=== PATIENT | female | born 1945 | race Hispanic/Latino ===

== ENCOUNTER 2017-08-10 19:48 | Emergency (ER) | payer MEDICARE ==
[~2017-08-10 19:48] MED LIST: ASPI-1181 PO; CLOP75TA32 PO; FLUT16H EN; LOSA100T29 PO; METO50TA18 PO; PANT40TA25 PO; ROSU20TA38 PO; SENN1TAB72 PO; TRAM50TA4 PO
[2017-08-10] MEDS ORDERED: FENTANYL CITRATE PF 50 MCG/1 ML 2ML VIAL ONE (20:18)
[2017-08-10 20:24] LABS: BASOPHILS % (AUTO) 0.7 % (0.0-5.0); EOSINOPHILS % (AUTO) 1.1 % (0.0-8.0); HEMATOCRIT 39.8 % (36-48); LYMPHOCYTES % (AUTO) 35.5 % (21.0-51.0); MEAN CORPUSCULAR HEMOGLOBIN 30.5 pg (27.0-33.0); MEAN CORPUSCULAR HGB CONC 34.2 g/dL (32.0-36.0); MEAN CORPUSCULAR VOLUME 89.3 fL (79-99); MONOCYTES % (AUTO) 6.4 % (3.0-13.0); NEUTROPHILS % (AUTO) 56.3 % (40.0-77.0); PLATELET COUNT (AUTO) 407 K/uL (130-400); RED BLOOD CELL COUNT(AUTO) 4.46 MIL/uL (4.00-5.50); RED CELL DISTRIBUTION WIDTH 13.3 % (11.0-15.5); WHITE BLOOD COUNT (AUTO) 11.4 K/uL (4.8-10.8)
[2017-08-10 20:35] LABS: CREATININE 1.3 mg/dL (0.5-1.5); INR 0.91 (0.85-1.15); PARTIAL THROMBOPLASTIN TIME 27.1 SEC (26.3-35.5); PROTHROMBIN TIME 9.6 SEC (9.6-11.6)
[2017-08-10] MEDS ORDERED: POTASSIUM BICARB/CIT AC 25 MEQ TABLET.EFF ONE (22:32)
[2017-12-14] MEDS ORDERED: ROSU20TA38 PO (16:41)
[2017-12-14] MEDS ORDERED: GABA-531 PO (16:41)
[2017-12-14] MEDS ORDERED: CARV6.25 PO (16:41)
[2017-12-14] MEDS ORDERED: ESCI5TAB10 PO (16:41)
[2017-12-14] MEDS ORDERED: ISOS30TA6 PO (16:41)
[2017-12-14] MEDS ORDERED: CILO100T PO (16:41)
[2017-12-14] MEDS ORDERED: ACET-66 PO (16:52)
[2017-12-14] MEDS ORDERED: CLOP75TA32 PO (16:52)
[2017-12-14] MEDS ORDERED: FURO20TA4 PO (16:52)
[2017-12-14] MEDS ORDERED: NITR0.4T50 SL (16:52)
[2018-01-22] MEDS ORDERED: FLUT16H NASAL (10:28)
[2018-01-22] MEDS ORDERED: ACET650T24 PO (10:28)
== END 2017-08-10 22:50 | disposition home or self-care (01) ==
LOC: EDH 19:48
DX: E87.6 Hypokalemia (principal); M79.605 Pain in left leg; J45.909 Unspecified asthma, uncomplicated; E78.5 Hyperlipidemia, unspecified; I10 Essential (primary) hypertension; I25.2 Old myocardial infarction; Z86.73 Personal history of transient ischemic attack (TIA), and cerebral infarction without residual deficits; Z88.6 Allergy status to analgesic agent; Z88.8 Allergy status to other drugs, medicaments and biological substances
CPT/HCPCS: 36415; 80048; 85025; 85610; 85730; 93005; 93926; 93971; 96374; 99285; J3010

== ENCOUNTER → 2017-11-10 | Outpatient (CLI) | payer MEDICARE ==
[~2017-11-10] MED LIST changes: +ACET-66 PO; +ACET650T24 PO; +CARV6.25 PO; +CILO100T PO; +ESCI5TAB10 PO; +FLUT16H NASAL; +FURO20TA4 PO; +GABA-531 PO; +IOPAMIDOL-370 75 ML VIAL IV ONE; +ISOS30TA6 PO; +ISOVUE-370 50ML VIAL IV ONE; +NITR0.4T50 SL
== END ==
LOC: RAH 08:24
PROVIDERS: ATTEND Internal Medicine Cardiovascular Disease
DX: I70.1 Atherosclerosis of renal artery (principal); I77.1 Stricture of artery; I70.0 Atherosclerosis of aorta; N20.0 Calculus of kidney; N28.1 Cyst of kidney, acquired; K44.9 Diaphragmatic hernia without obstruction or gangrene; N32.89 Other specified disorders of bladder; K57.30 Diverticulosis of large intestine without perforation or abscess without bleeding; I77.4 Celiac artery compression syndrome; I73.9 Peripheral vascular disease, unspecified
CPT/HCPCS: 75635; Q9967 ×2

== ENCOUNTER → 2018-01-22 | Outpatient (CLI) | payer MEDICARE ==
[~2018-01-22] VITALS: Ht 149.9 cm; Wt 74.7 kg
[~2018-01-22] MED LIST changes: -ASPI-1181 PO; -FLUT16H EN; -IOPAMIDOL-370 75 ML VIAL IV ONE; -ISOVUE-370 50ML VIAL IV ONE; -METO50TA18 PO; +ROSU20TA30 PO; -ROSU20TA38 PO; -SENN1TAB72 PO; -TRAM50TA4 PO
[2018-01-22 10:42] LABS: APPEARANCE,URINE Clear (CLEAR); BILIRUBIN,URINE Negative (NEGATIVE); COLOR,URINE Yellow (YELLOW); GLUCOSE, URINE (UA) Negative (NEGATIVE); KETONES,URINE Negative (NEGATIVE); LEUKOCYTE ESTERASE ,URINE Negative (NEGATIVE); NITRATE,URINE Negative (NEGATIVE); OCCULT BLOOD,URINE Negative (NEGATIVE); PROTEIN,URINE Negative (NEGATIVE); UROBILINOGEN,URINE 0.2 mg/dL (0.2-1.0)
[2018-01-22 10:42] LABS: BASOPHILS % (AUTO) 0.9 % (0.0-5.0); EOSINOPHILS % (AUTO) 4.4 % (0.0-8.0); HEMATOCRIT 38.7 % (36-48); LYMPHOCYTES % (AUTO) 37.4 % (21.0-51.0); MEAN CORPUSCULAR HEMOGLOBIN 31.9 pg (27.0-33.0); MEAN CORPUSCULAR HGB CONC 34.2 g/dL (32.0-36.0); MEAN CORPUSCULAR VOLUME 93.2 fL (79-99); MONOCYTES % (AUTO) 6.6 % (3.0-13.0); NEUTROPHILS % (AUTO) 50.7 % (40.0-77.0); PLATELET COUNT (AUTO) 332 K/uL (130-400); RED BLOOD CELL COUNT(AUTO) 4.15 MIL/uL (4.00-5.50); WHITE BLOOD COUNT (AUTO) 6.9 K/uL (4.8-10.8)
[2018-01-22 10:47] VITALS: BP 178/80
[2018-01-22 10:51] LABS: CREATININE 0.9 mg/dL (0.5-1.5); POTASSIUM 4.1 mmol/L (3.5-5.1)
[2018-01-22 10:54] LABS: INR 0.95 (0.85-1.15); PARTIAL THROMBOPLASTIN TIME 24.5 SEC (26.3-35.5)
[2018-01-25 06:05] VITALS: BP 161/59
== END | disposition home or self-care (01) ==
LOC: EDSTATUS 09:00 → DAH 10:00
PROVIDERS: ATTEND Internal Medicine Cardiovascular Disease
DX: Z01.818 Encounter for other preprocedural examination (principal); I73.9 Peripheral vascular disease, unspecified; E78.5 Hyperlipidemia, unspecified; K21.9 Gastro-esophageal reflux disease without esophagitis
CPT/HCPCS: 36415; 71045; 80048; 81003; 82948; 85025; 85610; 85730; 93005; A4606

== ENCOUNTER 2018-07-04 13:47 | Observation (INO) | payer MEDICARE ==
[~2018-07-04] VITALS: Ht 180.3 cm; Wt 74.4 kg
[~2018-07-04 13:47] MED LIST changes: -ACET-66 PO; +LOSA100T20 PO; -LOSA100T29 PO; -NITR0.4T50 SL; +[UNRECOGNIZED DRUG - OTHER] PO
[2018-07-04 14:17] LABS: BASOPHILS % (AUTO) 0.9 % (0.0-5.0); EOSINOPHILS % (AUTO) 0.8 % (0.0-8.0); HEMATOCRIT 42.1 % (36-48); LYMPHOCYTES % (AUTO) 45.7 % (21.0-51.0); MEAN CORPUSCULAR HGB CONC 34.4 g/dL (32.0-36.0); MEAN CORPUSCULAR VOLUME 93.1 fL (79-99); NEUTROPHILS % (AUTO) 46.6 % (40.0-77.0); NUCLEATED RED BLOOD CELLS 0.1 % (0.0-0.19); PLATELET COUNT (AUTO) 354 K/uL (130-400); RED BLOOD CELL COUNT(AUTO) 4.52 MIL/uL (4.00-5.50); RED CELL DISTRIBUTION WIDTH 14.3 % (11.0-15.5); WHITE BLOOD COUNT (AUTO) 6.8 K/uL (4.8-10.8)
[2018-07-04] MEDS ORDERED: ASPIRIN 325 MG TABLET ONE (14:56)
[2018-07-04] MEDS ORDERED: NITROGLYCERIN 0.4 MG SL TAB SL ONE (14:56)
[2018-07-04 15:03] LABS: INR 0.95 (0.85-1.15); PARTIAL THROMBOPLASTIN TIME 25.2 SEC (26.3-35.5)
[2018-07-04 15:04] LABS: ALBUMIN 3.7 g/dL (3.5-5.0); BILIRUBIN,TOTAL 0.6 mg/dL (0.2-1.0); CREATININE 0.8 mg/dL (0.5-1.5); POTASSIUM 3.2 mmol/L (3.5-5.1); TOTAL PROTEIN, SERUM 7.1 g/dL (6.0-8.3)
[2018-07-04] MEDS ORDERED: HYDRALAZINE HCL 20 MG/ML VIAL IV PRN (16:30)
[2018-07-04] MEDS ORDERED: LIDOCAINE HCL-MPF 1% 2ML VIAL IVP PRN (17:00)
[2018-07-04] MEDS ORDERED: POTASSIUM CHLORIDE 20 MEQ ERTAB PO PRN (17:00)
[2018-07-04] MEDS ORDERED: POTASSIUM CHLORIDE 10% ELIXIR 20 MEQ/15 ML UDCUP PO PRN (17:00)
[2018-07-04] MEDS ORDERED: POTASSIUM CHLORIDE 20MEQ/100ML 100 ML IV PRN (17:00)
[2018-07-04] MEDS ORDERED: IPRATROPIUM/ALBUTEROL SULFATE 3 ML SOLUTION IH PRN (17:15)
[2018-07-04 19:07] VITALS: BP 152/77
[2018-07-04] MEDS: NAPROXEN 250 MG TAB PO SCH ×2 (20:00→21:00)
[2018-07-04] MEDS: CILOSTAZOL 100 MG TAB PO SCH (21:00)
[2018-07-04] MEDS: CARVEDILOL 6.25 MG TABLET PO SCH (21:00)
[2018-07-04] MEDS ORDERED: METOPROLOL TARTRATE 25 MG TAB PO SCH (21:00)
[2018-07-04 23:33] VITALS: BP 151/61
[2018-07-05 03:23] VITALS: BP 125/74
[2018-07-05 04:01] LABS: HEMATOCRIT 37.3 % (36-48); MEAN CORPUSCULAR HEMOGLOBIN 31.5 pg (27.0-33.0); MEAN CORPUSCULAR VOLUME 92.5 fL (79-99); PLATELET COUNT (AUTO) 288 K/uL (130-400); RED BLOOD CELL COUNT(AUTO) 4.03 MIL/uL (4.00-5.50); RED CELL DISTRIBUTION WIDTH 13.9 % (11.0-15.5); WHITE BLOOD COUNT (AUTO) 7.8 K/uL (4.8-10.8)
[2018-07-05] MEDS ORDERED: PANTOPRAZOLE SODIUM 40 MG TABLET.DR PO SCH (07:30)
[2018-07-05 07:43] VITALS: BP 138/73
[2018-07-05] MEDS ORDERED: ASPIRIN 81MG TAB.CHEW PO SCH (09:00)
[2018-07-05] MEDS ORDERED: ENOXAPARIN SODIUM 40 MG/0.4 ML SYRINGE SQ SCH (09:00)
[2018-07-05] MEDS ORDERED: FUROSEMIDE 20 MG TABLET PO SCH (09:00)
[2018-07-05] MEDS ORDERED: ISOSORBIDE MONO 30MG TAB SR PO SCH (09:00)
[2018-07-05] MEDS ORDERED: AMLODIPINE BESYLATE 5 MG TAB PO SCH (09:00)
[2018-07-05] MEDS ORDERED: LOSARTAN 100 MG TABLET PO SCH (09:00)
[2018-07-05] MEDS ORDERED: NITROGLYCERIN 0.2 MG/HR PATCH TD SCH (09:00)
[2018-07-05] MEDS ORDERED: CLOPIDOGREL BISULFATE 75 MG TAB PO SCH (09:00)
[2018-07-05] MEDS: CILOSTAZOL 100 MG TAB PO SCH (09:41)
[2018-07-05 09:42] VITALS: BP 138/73
[2018-07-05] MEDS: CARVEDILOL 6.25 MG TABLET PO SCH (09:42)
[2018-07-05] MEDS ORDERED: AMLO5TAB4 PO (10:29)
== END 2018-07-05 12:40 | disposition home or self-care (01) ==
LOC: EDH 13:47 → EDHIP 16:22 → INTOOBSV 16:22 → 2DH 19:03
PROVIDERS: ADMIT Hospitalist; ATTEND Hospitalist
DX: M94.0 Chondrocostal junction syndrome [Tietze] (principal); E11.51 Type 2 diabetes mellitus with diabetic peripheral angiopathy without gangrene; E87.6 Hypokalemia; E78.5 Hyperlipidemia, unspecified; F41.9 Anxiety disorder, unspecified; H02.60 Xanthelasma of unspecified eye, unspecified eyelid; I11.0 Hypertensive heart disease with heart failure; I50.9 Heart failure, unspecified; I70.212 Atherosclerosis of native arteries of extremities with intermittent claudication, left leg; I25.10 Atherosclerotic heart disease of native coronary artery without angina pectoris; J45.909 Unspecified asthma, uncomplicated; J44.9 Chronic obstructive pulmonary disease, unspecified; Z87.891 Personal history of nicotine dependence; Z95.1 Presence of aortocoronary bypass graft
CPT/HCPCS: 36415 ×2; 71045; 80053; 82550; 84484 ×3; 85025; 85027; 85610; 85730; 93005 ×2; 93925; 94664; 96372; 99284; G0378 ×20; J1650

== ENCOUNTER 2018-09-17 05:50 | Day surgery (SDC) | payer MEDICARE ==
[~2018-09-17] VITALS: Ht 147.3 cm; Wt 75.8 kg
[~2018-09-17 05:50] MED LIST changes: -CLOP75TA32 PO; -GABA-531 PO; +ISOS30TA11 PO; -LOSA100T20 PO; +LOSA100T58 PO; -[UNRECOGNIZED DRUG - OTHER] PO
[2018-09-17] MEDS ORDERED: SODIUM CHLORIDE 0.9% 1000ML 1,000 ML IV ONE (06:03)
[2018-09-17 07:00] VITALS: BP 156/66
[2018-09-17] MEDS ORDERED: BREO (07:18)
[2018-09-17] MEDS ORDERED: PROPOFOL 10 MG/ML 20ML VIAL IV ONE ×2 (07:32)
[2018-09-17 07:45] VITALS: BP 94/49
[2018-09-17 07:50] VITALS: BP 110/54
[2018-09-17 07:55] VITALS: BP 98/59
[2018-09-17 08:00] VITALS: BP 126/60
--- NOTE | 2018-09-17 08:11 | NUR ---
PT TOLERATED PROCEDURE WELL, NO C/O ABDOMINAL PAIN DOES STATE MILD THROAT DISCOMFORT. PT ABLE TO SIT UP AT BEDSIDE AND TOLERATE FLUIDS, ISTRUCTED PT TO DRINK WARM LIQUIDS, AND COUGH DROPS. POST CARE INSTRUCTIONS GIVEN TO PT AND SON, BOTH VERBALIZED UNDERSTANDING. PT PLACED IN A WHEELCHAIR DRIVEN HOME BY SON.
== END 2018-09-17 08:11 | disposition home or self-care (01) ==
LOC: DAH 05:50 → ENDO 05:50
PROVIDERS: ATTEND Internal Medicine
DX: K29.50 Unspecified chronic gastritis without bleeding (principal); K44.9 Diaphragmatic hernia without obstruction or gangrene; K31.89 Other diseases of stomach and duodenum; K56.2 Volvulus; I10 Essential (primary) hypertension; M19.90 Unspecified osteoarthritis, unspecified site; M81.0 Age-related osteoporosis without current pathological fracture; J45.909 Unspecified asthma, uncomplicated; E11.9 Type 2 diabetes mellitus without complications; I25.10 Atherosclerotic heart disease of native coronary artery without angina pectoris; E78.5 Hyperlipidemia, unspecified; Z68.32 Body mass index [BMI] 32.0-32.9, adult; Z95.1 Presence of aortocoronary bypass graft; Z79.84 Long term (current) use of oral hypoglycemic drugs; Z79.899 Other long term (current) drug therapy; Z98.890 Other specified postprocedural states; Z90.710 Acquired absence of both cervix and uterus; Z88.8 Allergy status to other drugs, medicaments and biological substances; Z88.0 Allergy status to penicillin; Z86.73 Personal history of transient ischemic attack (TIA), and cerebral infarction without residual deficits
CPT/HCPCS: 43239; 82948 ×2; 88305; 93005; A4606; J2704 ×2; J7030

== ENCOUNTER → 2018-09-27 | Outpatient (CLI) | payer MEDICARE ==
[~2018-09-27] MED LIST changes: +BREO; +IOHEXOL-350 75 ML VIAL IV ONE
== END | disposition home or self-care (01) ==
LOC: RAH 08:56
PROVIDERS: ATTEND Internal Medicine Cardiovascular Disease
DX: I71.4 Abdominal aortic aneurysm, without rupture (principal); I74.5 Embolism and thrombosis of iliac artery; I25.10 Atherosclerotic heart disease of native coronary artery without angina pectoris; I77.4 Celiac artery compression syndrome; I73.9 Peripheral vascular disease, unspecified; K57.90 Diverticulosis of intestine, part unspecified, without perforation or abscess without bleeding; M47.815 Spondylosis without myelopathy or radiculopathy, thoracolumbar region; I70.90 Unspecified atherosclerosis
CPT/HCPCS: 75635; Q9967

== ENCOUNTER → 2018-10-05 | Outpatient (CLI) | payer MEDICARE ==
[~2018-10-05] MED LIST changes: -IOHEXOL-350 75 ML VIAL IV ONE
--- NOTE | 2018-10-05 11:30 | NUR ---
MBSS COMPLETED. -S/S OF ASPIRATION. RECOMMEND REGULAR, THIN LIQUID DIET; PILLS WHOLE WITH LIQUIDS. PATIENT INFORMATION: Pt IS A 72 Y.O. FEMALE REFERRED FOR AN MBSS SECONDARY TO C/O DIFFICULTY SWALLOWING. Pt AAOX3 AND SERVED THE PRIMARY INFORMANT FOR MEDICAL AND SOCIAL HISTORY. Pt DESCRIBES SWALLOWING DIFFICULTY COUGHING AND BRINING UP MUCUS. Pt HAS A PAST MEDICAL HISTORY SIGNIFICANT FOR HYPERTENSION, DIABETES MELLITUS, DYSLIPIDEMIA, CABGX3 2009, HYSTERECTOMY, CHOLECYSTECTOMY, COPD, ASTHMA, CHF, HYPOKALEMIA, CAD AND EX-SMOKER. MBSS INTERPRETATION: SWALLOW FUNCTION AND EFFICIENCY WITHIN FUNCTIONAL LIMITS. ORAL MOTOR STRENGTH, COORDINATION, AND ROM WITHIN FUNCTIONAL LIMITS. LARYNGEAL ELEVATION/EXCURSION STRONG WITH TIMELY PHARYNGEAL RESPONSE. NO SIGNS OR SYMPTOMS OF ASPIRATION PRESENT DURING MBSS. VOCAL QUALITY CLEAR WITH NO THROAT CLEAR OR COUGH RESPONSE PRESENT. TRIALS: 1. TSP PUREED: GOOD 2. TSP PUREED: GOOD 3. TSP MIXED TEXTURES: GOOD 4. COOKIE: GOOD 5. CUP SIP THIN LIQUIDS: GOOD 6. STRAW SIP THIN LIQUIDS: GOOD RECOMMENDATIONS: 1. REGULAR TEXTURE, THIN LIQUID DIET; PILLS WHOLE WITH LIQUIDS. 2. COMPENSATORY STRATEGIES (PROPHYLAXIS): *SEATED AT 90 DEGREE ANGLE G-CODES SWALLOWING: [id number] Addendum: 10/06/18 at 0851 by KATIE LUIS [facility] Amended: Links added.
== END | disposition home or self-care (01) ==
LOC: RAH 10:25
PROVIDERS: ATTEND Internal Medicine Gastroenterology
DX: R13.10 Dysphagia, unspecified (principal); R63.3 Feeding difficulties; I10 Essential (primary) hypertension; E11.9 Type 2 diabetes mellitus without complications; I25.10 Atherosclerotic heart disease of native coronary artery without angina pectoris; M19.90 Unspecified osteoarthritis, unspecified site; J45.909 Unspecified asthma, uncomplicated
CPT/HCPCS: 74230; 92611

== ENCOUNTER 2018-12-18 09:58 | Emergency (ER) | payer MEDICARE ==
[2018-12-18] MEDS ORDERED: IPRATROPIUM/ALBUTEROL SULFATE 3 ML SOLUTION IH ONE ×2 (10:35→11:25)
[2018-12-18 10:46] LABS: BASOPHILS % (AUTO) 0.8 % (0.0-5.0); EOSINOPHILS % (AUTO) 1.3 % (0.0-8.0); HEMATOCRIT 41.2 % (36-48); LYMPHOCYTES % (AUTO) 31.5 % (21.0-51.0); MEAN CORPUSCULAR HEMOGLOBIN 32.8 pg (27.0-33.0); MEAN CORPUSCULAR HGB CONC 34.6 g/dL (32.0-36.0); MEAN CORPUSCULAR VOLUME 94.7 fL (79-99); MONOCYTES % (AUTO) 11.2 % (3.0-13.0); NEUTROPHILS % (AUTO) 55.2 % (40.0-77.0); PLATELET COUNT (AUTO) 237 K/uL (130-400); RED BLOOD CELL COUNT(AUTO) 4.35 MIL/uL (4.00-5.50); RED CELL DISTRIBUTION WIDTH 14.5 % (11.0-15.5); WHITE BLOOD COUNT (AUTO) 4.4 K/uL (4.8-10.8)
[2018-12-18 10:54] LABS: CREATININE 0.9 mg/dL (0.5-1.5); POTASSIUM 3.3 mmol/L (3.5-5.1)
[2018-12-18 10:59] LABS: ALBUMIN 3.6 g/dL (3.5-5.0); BILIRUBIN,TOTAL 0.4 mg/dL (0.2-1.0)
[2018-12-18 10:59] LABS: RAPID GROUP A STREP NEGATIVE (NEGATIVE)
[2018-12-18 11:07] LABS: INR 0.94 (0.85-1.15); PARTIAL THROMBOPLASTIN TIME 25.5 SEC (26.3-35.5); PROTHROMBIN TIME 9.9 SEC (9.6-11.6)
[2018-12-18] MEDS ORDERED: METHYLPREDNISOLONE SOD SUCC 125MG/2ML VIAL ONE (11:10)
[2018-12-18] MEDS ORDERED: POTASSIUM CHLORIDE 20 MEQ ERTAB PO ONE (11:10)
== END 2018-12-18 11:58 | disposition home or self-care (01) ==
LOC: EDH 09:58
DX: J45.901 Unspecified asthma with (acute) exacerbation (principal); I10 Essential (primary) hypertension; E78.5 Hyperlipidemia, unspecified; I25.810 Atherosclerosis of coronary artery bypass graft(s) without angina pectoris; I25.2 Old myocardial infarction; Z86.73 Personal history of transient ischemic attack (TIA), and cerebral infarction without residual deficits; Z87.891 Personal history of nicotine dependence; Z88.5 Allergy status to narcotic agent; Z88.6 Allergy status to analgesic agent; Z79.899 Other long term (current) drug therapy
CPT/HCPCS: 36415; 71045; 80053; 84484; 85025; 85610; 85730; 87040; 87804 ×2; 87880; 93005; 94640 ×2; 96374; 99285; J2930

== ENCOUNTER 2019-12-04 15:42 | Emergency (ER) | payer MEDICARE ==
[~2019-12-04 15:42] MED LIST changes: -ROSU20TA30 PO; +ROSU20TA31 PO
[2019-12-04 16:24] LABS: BASOPHILS % (AUTO) 0.4 % (0.0-5.0); EOSINOPHILS % (AUTO) 0.7 % (0.0-8.0); LYMPHOCYTES % (AUTO) 31.5 % (21.0-51.0); MEAN CORPUSCULAR HEMOGLOBIN 32.8 pg (27.0-33.0); MEAN CORPUSCULAR HGB CONC 33.7 g/dL (32.0-36.0); MEAN CORPUSCULAR VOLUME 97.4 fL (79-99); MONOCYTES % (AUTO) 7.7 % (3.0-13.0); NEUTROPHILS % (AUTO) 59.5 % (40.0-77.0); PLATELET COUNT (AUTO) 315 K/uL (130-400); RED BLOOD CELL COUNT(AUTO) 4.21 MIL/uL (4.00-5.50); RED CELL DISTRIBUTION WIDTH 13.2 % (11.0-15.5); WHITE BLOOD COUNT (AUTO) 9.6 K/uL (4.8-10.8)
[2019-12-04 16:34] LABS: CREATININE 1.2 mg/dL (0.5-1.5); POTASSIUM 3.7 mmol/L (3.5-5.1)
[2019-12-04 16:38] LABS: ALBUMIN 3.8 g/dL (3.5-5.0); BILIRUBIN,TOTAL 0.4 mg/dL (0.2-1.0)
== END 2019-12-04 18:18 | disposition home or self-care (01) ==
LOC: EDH 15:42
DX: M77.32 Calcaneal spur, left foot (principal); M79.672 Pain in left foot; I10 Essential (primary) hypertension; E78.5 Hyperlipidemia, unspecified; J45.909 Unspecified asthma, uncomplicated; I25.2 Old myocardial infarction; Z72.0 Tobacco use; Z88.6 Allergy status to analgesic agent; Z88.5 Allergy status to narcotic agent; I25.10 Atherosclerotic heart disease of native coronary artery without angina pectoris
CPT/HCPCS: 36415; 71045; 73590; 73630; 80053; 82550; 84484; 85025; 93005; 93971

== ENCOUNTER → 2019-12-23 | Outpatient (CLI) | payer MEDICARE ==
[~2019-12-23] MED LIST changes: +REGADENOSON 0.4 MG/5 ML PF SYG IVP SCH
== END | disposition home or self-care (01) ==
LOC: CANPRECLI → SHCH 08:08
PROVIDERS: ATTEND Internal Medicine Cardiovascular Disease
DX: I25.10 Atherosclerotic heart disease of native coronary artery without angina pectoris (principal)
CPT/HCPCS: 78452; 93017; 96374; A9500 ×2; J2785

== ENCOUNTER 2020-05-08 14:52 | Emergency (ER) | payer MEDICARE ==
[~2020-05-08 14:52] MED LIST changes: -PANT40TA25 PO; +PANT40TA54 PO; -REGADENOSON 0.4 MG/5 ML PF SYG IVP SCH
[2020-05-08 15:31] LABS: BASOPHILS % (AUTO) 0.5 % (0.0-5.0); EOSINOPHILS % (AUTO) 0.9 % (0.0-8.0); HEMATOCRIT 42.2 % (36-48); LYMPHOCYTES % (AUTO) 38.8 % (21.0-51.0); MEAN CORPUSCULAR HEMOGLOBIN 32.3 pg (27.0-33.0); MEAN CORPUSCULAR HGB CONC 34.1 g/dL (32.0-36.0); MEAN CORPUSCULAR VOLUME 94.6 fL (79-99); MONOCYTES % (AUTO) 7.2 % (3.0-13.0); NEUTROPHILS % (AUTO) 52.5 % (40.0-77.0); PLATELET COUNT (AUTO) 301 K/uL (130-400); RED BLOOD CELL COUNT(AUTO) 4.46 MIL/uL (4.00-5.50); RED CELL DISTRIBUTION WIDTH 13.2 % (11.0-15.5); WHITE BLOOD COUNT (AUTO) 7.7 K/uL (4.8-10.8)
[2020-05-08 15:43] LABS: CREATININE 0.8 mg/dL (0.5-1.5); POTASSIUM 3.2 mmol/L (3.5-5.1)
[2020-05-08 15:44] LABS: INR 0.91 (0.85-1.15); PARTIAL THROMBOPLASTIN TIME 24.5 SEC (26.3-35.5); PROTHROMBIN TIME 9.9 SEC (9.6-11.6)
[2020-05-08 15:48] LABS: ALBUMIN 3.8 g/dL (3.5-5.0); BILIRUBIN,TOTAL 0.4 mg/dL (0.2-1.0); TOTAL PROTEIN, SERUM 7.2 g/dL (6.0-8.3)
== END 2020-05-08 19:16 | disposition left against medical advice (07) ==
LOC: EDH 14:52
DX: R07.89 Other chest pain (principal); I16.0 Hypertensive urgency; I10 Essential (primary) hypertension; J45.909 Unspecified asthma, uncomplicated; I25.10 Atherosclerotic heart disease of native coronary artery without angina pectoris; I25.2 Old myocardial infarction; Z88.6 Allergy status to analgesic agent; Z86.73 Personal history of transient ischemic attack (TIA), and cerebral infarction without residual deficits
CPT/HCPCS: 36415; 70450; 71045; 80053; 82550; 83880; 84484; 85025; 85378; 85610; 85730; 93005

== ENCOUNTER 2020-06-27 13:42 | Observation (INO) | payer MEDICARE ==
[~2020-06-27] VITALS: Ht 149.9 cm; Wt 75.7 kg
[2020-06-27 14:25] LABS: BASOPHILS % (AUTO) 0.4 % (0.0-5.0); EOSINOPHILS % (AUTO) 0.7 % (0.0-8.0); HEMATOCRIT 41.3 % (36-48); MEAN CORPUSCULAR HEMOGLOBIN 32.5 pg (27.0-33.0); MEAN CORPUSCULAR HGB CONC 34.1 g/dL (32.0-36.0); MEAN CORPUSCULAR VOLUME 95.2 fL (79-99); MONOCYTES % (AUTO) 6.3 % (3.0-13.0); NEUTROPHILS % (AUTO) 51.3 % (40.0-77.0); PLATELET COUNT (AUTO) 294 K/uL (130-400); RED BLOOD CELL COUNT(AUTO) 4.34 MIL/uL (4.00-5.50); RED CELL DISTRIBUTION WIDTH 12.6 % (11.0-15.5); WHITE BLOOD COUNT (AUTO) 7.5 K/uL (4.8-10.8)
[2020-06-27 14:40] LABS: POTASSIUM 4.3 mmol/L (3.5-5.1)
[2020-06-27 14:42] LABS: ALBUMIN 3.9 g/dL (3.5-5.0); BILIRUBIN,TOTAL 0.4 mg/dL (0.2-1.0); INR 0.92 (0.85-1.15); TOTAL PROTEIN, SERUM 7.4 g/dL (6.0-8.3)
[2020-06-27 14:51] LABS: B-TYPE NATRIURETIC PEPTIDE 30 pg/mL (0-100)
[2020-06-27] MEDS ORDERED: ONDANSETRON HCL 4 MG/2 ML VIAL IVP PRN (15:15)
[2020-06-27] MEDS ORDERED: NITROGLYCERIN 0.4 MG SL TAB SL PRN (15:15)
[2020-06-27] MEDS ORDERED: ACETAMINOPHEN 325 MG TAB PO PRN (18:30)
[2020-06-27] MEDS ORDERED: TEMAZEPAM 15 MG CAPSULE PO PRN (18:45)
[2020-06-27] MEDS: PHARMACY COMMUNICATION MISC SCH (19:00)
[2020-06-27] MEDS ORDERED: IOHEXOL-350 75 ML VIAL IV ONE (19:07)
[2020-06-27] MEDS ORDERED: METOPROLOL TARTRATE 25 MG TAB ONE (20:10)
[2020-06-27] MEDS ORDERED: ATORVASTATIN CALCIUM 20 MG TABLET ONE (20:10)
[2020-06-27] MEDS ORDERED: ATORVASTATIN CALCIUM 20 MG TABLET PO SCH (21:00)
[2020-06-27] MEDS: METOPROLOL TARTRATE 25 MG TAB PO SCH (21:00)
[2020-06-27 22:37] VITALS: BP 139/65
[2020-06-27 23:23] LABS: CREATINE KINASE, TOTAL 30 U/L (21-232); MYOGLOBIN 41 ng/mL (10-92); TROPONIN I < 0.04 ng/mL (0.00-0.06)
[2020-06-28] VITALS: BP 128/69
[2020-06-28] MEDS: PHARMACY COMMUNICATION MISC SCH ×2 (01:00→06:25)
[2020-06-28] MEDS ORDERED: METF-444 PO (01:16)
[2020-06-28] MEDS ORDERED: OLME20TA22 PO (01:16)
[2020-06-28] MEDS ORDERED: CARV12.511 PO (01:16)
[2020-06-28] MEDS ORDERED: CLOP75TA32 PO (01:16)
[2020-06-28] MEDS ORDERED: RANO500T2 PO (01:16)
[2020-06-28 03:45] VITALS: BP 115/55
[2020-06-28 04:04] LABS: BASOPHILS % (AUTO) 0.3 % (0.0-5.0); EOSINOPHILS % (AUTO) 1.3 % (0.0-8.0); HEMATOCRIT 38.7 % (36-48); LYMPHOCYTES % (AUTO) 44.2 % (21.0-51.0); MEAN CORPUSCULAR HEMOGLOBIN 32.4 pg (27.0-33.0); MEAN CORPUSCULAR HGB CONC 34.1 g/dL (32.0-36.0); MEAN CORPUSCULAR VOLUME 95.1 fL (79-99); NEUTROPHILS % (AUTO) 47.1 % (40.0-77.0); PLATELET COUNT (AUTO) 274 K/uL (130-400); RED BLOOD CELL COUNT(AUTO) 4.07 MIL/uL (4.00-5.50); RED CELL DISTRIBUTION WIDTH 12.4 % (11.0-15.5); WHITE BLOOD COUNT (AUTO) 9.6 K/uL (4.8-10.8)
[2020-06-28 04:16] LABS: CREATININE 1.3 mg/dL (0.5-1.5); POTASSIUM 4.1 mmol/L (3.5-5.1)
[2020-06-28] MEDS ORDERED: ACETAMINOPHEN 325 MG TAB ONE (04:38)
[2020-06-28 07:17] LABS: CREATINE KINASE, TOTAL 35 U/L (21-232); MYOGLOBIN 55 ng/mL (10-92); TROPONIN I < 0.04 ng/mL (0.00-0.06)
[2020-06-28 08:04] VITALS: BP 133/57
--- NOTE | 2020-06-28 08:06 | NUR ---
PATIENT UPDATE ADMITTED A 74 YR OLD FEMALE FOR CHEST PAIN R/O ACS. NO CHEST PAIN OVERNIGHT, CARDIAC ENZYMES X 3 ALL NEGATIVE. ON TELE MONITORING, NSR NO ECTOPIES NOTED. NO SHORTNESS OF BREATH. DR. WILLIAM WAS CONSULTED FR ER, PT SCHEDULED FOR [place] STRESS TEST THIS AM, NPO POST [place].
[2020-06-28] MEDS: METOPROLOL TARTRATE 25 MG TAB PO SCH (09:00)
[2020-06-28] MEDS ORDERED: ASPIRIN 81MG TAB.CHEW PO SCH (09:00)
[2020-06-28] MEDS: FAMOTIDINE 20MG TAB 20 MG TAB PO SCH (09:00)
[2020-06-28] MEDS: NITROGLYCERIN 0.2 MG/HR PATCH TD SCH (10:25)
--- NOTE | 2020-06-28 10:47 | NUR ---
PATIENT OFF UNIT FOR STRESS TEST
[2020-06-28 11:11] VITALS: BP 126/66
[2020-06-28] MEDS: REGADENOSON 0.4 MG/5 ML PF SYG IVP SCH ×2 (11:30→12:12)
--- NOTE | 2020-06-28 11:53 | NUR ---
PATIENT BACK FROM STRESS TEST EATING LUNCH DENIES PAIN AT THIS TIME
--- NOTE | 2020-06-28 12:35 | NUR ---
DCP CM spoke to pt discussed dc plans. Pt is independent prior to admission, lives at home alone, daughter lives close by. Pt has a wheelchair, cane, provider 35.5hrs/wk. Denies any other equipments/services. Feels safe to go back home, daughter able to assist with transportation and needs as necessary. DC plan to home once stable. CM to continue to follow up. Addendum: 06/28/20 at 1237 by DEE DEE BARBOZA LVN CM Amended: Links added.
[2020-06-28 16:12] VITALS: BP 153/59
--- NOTE | 2020-06-28 17:29 | NUR ---
DR NATALIIA WILLIAM CALLED HE HAS REVIEWED THE STRESS TEST AND PER HIM IT LOOK NORMAL , PATIENT CAN FOLLOW-UP WITH HIS OFFICE IN 1-2 WEEKS
[2020-06-28 20:56] VITALS: BP 150/60
[2020-06-29 00:10] VITALS: BP 142/67
[2020-06-29 04:14] LABS: BASOPHILS % (AUTO) 0.5 % (0.0-5.0); EOSINOPHILS % (AUTO) 1.3 % (0.0-8.0); HEMATOCRIT 39.5 % (36-48); LYMPHOCYTES % (AUTO) 47.3 % (21.0-51.0); MEAN CORPUSCULAR HEMOGLOBIN 32.3 pg (27.0-33.0); MEAN CORPUSCULAR HGB CONC 33.7 g/dL (32.0-36.0); MEAN CORPUSCULAR VOLUME 95.9 fL (79-99); NEUTROPHILS % (AUTO) 42.7 % (40.0-77.0); PLATELET COUNT (AUTO) 283 K/uL (130-400); RED BLOOD CELL COUNT(AUTO) 4.12 MIL/uL (4.00-5.50); RED CELL DISTRIBUTION WIDTH 12.5 % (11.0-15.5); WHITE BLOOD COUNT (AUTO) 8.2 K/uL (4.8-10.8)
[2020-06-29 04:35] LABS: POTASSIUM 4.1 mmol/L (3.5-5.1)
[2020-06-29 04:48] VITALS: BP 139/65
[2020-06-29 07:00] VITALS: BP 148/67
[2020-06-29] MEDS ORDERED: PANTOPRAZOLE SODIUM 40 MG TABLET.DR PO SCH (08:10)
[2020-06-29] MEDS ORDERED: CLOPIDOGREL BISULFATE 75 MG TAB PO SCH (09:00)
[2020-06-29] MEDS ORDERED: CILOSTAZOL 100 MG TAB PO SCH (09:00)
[2020-06-29] MEDS ORDERED: RANOLAZINE 500 MG TAB.SR.12H PO SCH (09:00)
[2020-06-29] MEDS: METOPROLOL TARTRATE 25 MG TAB PO SCH (09:00)
[2020-06-29] MEDS: FAMOTIDINE 20MG TAB 20 MG TAB PO SCH (10:01)
[2020-06-29] MEDS: NITROGLYCERIN 0.2 MG/HR PATCH TD SCH (10:01)
[2020-06-29 11:00] VITALS: BP 170/65
--- NOTE | 2020-06-29 12:16 | NUR ---
PER WILL TREAT MEDICAL MGMT IN OFFICE REGARDING US, PT MAY BE DISCHARGED AND F/U IN OFFICE.
--- NOTE | 2020-06-29 15:08 | NUR ---
RE-DISCHARGE PT DISCHARGED ,IV DISCONTINUED, NO CONCERNS VOICED.
== END 2020-06-29 17:00 | disposition home or self-care (01) ==
LOC: EDH 13:42 → EDHIP 15:00 → 3CH 20:53
PROVIDERS: ADMIT Hospitalist; ATTEND Hospitalist
DX: R07.89 Other chest pain (principal); I25.110 Atherosclerotic heart disease of native coronary artery with unstable angina pectoris; I12.9 Hypertensive chronic kidney disease with stage 1 through stage 4 chronic kidney disease, or unspecified chronic kidney disease; N18.30 Chronic kidney disease, stage 3 unspecified; R79.1 Abnormal coagulation profile; I73.9 Peripheral vascular disease, unspecified; J44.9 Chronic obstructive pulmonary disease, unspecified; I49.3 Ventricular premature depolarization; H02.60 Xanthelasma of unspecified eye, unspecified eyelid; E78.5 Hyperlipidemia, unspecified; I25.2 Old myocardial infarction; F17.200 Nicotine dependence, unspecified, uncomplicated; Z86.73 Personal history of transient ischemic attack (TIA), and cerebral infarction without residual deficits; Z90.710 Acquired absence of both cervix and uterus; Z95.1 Presence of aortocoronary bypass graft; Z79.899 Other long term (current) drug therapy; Z88.6 Allergy status to analgesic agent; Z88.5 Allergy status to narcotic agent; Z91.048 Other nonmedicinal substance allergy status; Z88.8 Allergy status to other drugs, medicaments and biological substances
CPT/HCPCS: 36415 ×3; 71045; 71275; 78452; 80048 ×2; 80053; 82550 ×3; 82948 ×7; 83874 ×2; 83880; 84484 ×3; 85025 ×3; 85378; 85610; 85730; 93005 ×3; 93017; 93925; 99285; A9500 ×2; G0378 ×47; J2785; Q9967; 96374

== ENCOUNTER 2020-07-31 15:55 | Emergency (ER) | payer MEDICARE ==
[~2020-07-31 15:55] MED LIST changes: -ACET650T24 PO; -BREO; +CARV12.511 PO; -CARV6.25 PO; +CLOP75TA32 PO; -ESCI5TAB10 PO; -FLUT16H NASAL; -ISOS30TA11 PO; -ISOS30TA6 PO; -LOSA100T58 PO; +METF-444 PO; +OLME20TA22 PO; +RANO500T2 PO
[2020-07-31 17:14] LABS: BASOPHILS % (AUTO) 0.4 % (0.0-5.0); EOSINOPHILS % (AUTO) 0.6 % (0.0-8.0); HEMATOCRIT 39.5 % (36-48); LYMPHOCYTES % (AUTO) 38.8 % (21.0-51.0); MEAN CORPUSCULAR HEMOGLOBIN 32.6 pg (27.0-33.0); MEAN CORPUSCULAR HGB CONC 34.2 g/dL (32.0-36.0); MEAN CORPUSCULAR VOLUME 95.4 fL (79-99); MONOCYTES % (AUTO) 7.2 % (3.0-13.0); NEUTROPHILS % (AUTO) 52.8 % (40.0-77.0); PLATELET COUNT (AUTO) 313 K/uL (130-400); RED BLOOD CELL COUNT(AUTO) 4.14 MIL/uL (4.00-5.50); RED CELL DISTRIBUTION WIDTH 13.3 % (11.0-15.5); WHITE BLOOD COUNT (AUTO) 8.2 K/uL (4.8-10.8)
[2020-07-31 17:32] LABS: PROTHROMBIN TIME 10.7 SEC (9.6-11.6)
[2020-07-31 17:33] LABS: PARTIAL THROMBOPLASTIN TIME 26.2 SEC (26.3-35.5)
[2020-07-31 17:35] LABS: CREATININE 0.8 mg/dL (0.5-1.5); POTASSIUM 3.4 mmol/L (3.5-5.1)
[2020-07-31 17:39] LABS: ALBUMIN 3.8 g/dL (3.5-5.0); BILIRUBIN,TOTAL 0.3 mg/dL (0.2-1.0); TOTAL PROTEIN, SERUM 7.1 g/dL (6.0-8.3)
[2020-07-31 17:56] LABS: B-TYPE NATRIURETIC PEPTIDE 14 pg/mL (0-100)
== END 2020-07-31 20:11 | disposition home or self-care (01) ==
LOC: EDH 15:55
DX: H92.03 Otalgia, bilateral (principal); R07.89 Other chest pain; I10 Essential (primary) hypertension; E11.9 Type 2 diabetes mellitus without complications; E78.5 Hyperlipidemia, unspecified; J44.9 Chronic obstructive pulmonary disease, unspecified; K21.9 Gastro-esophageal reflux disease without esophagitis; Z86.73 Personal history of transient ischemic attack (TIA), and cerebral infarction without residual deficits; Z95.1 Presence of aortocoronary bypass graft; Z88.6 Allergy status to analgesic agent; Z88.8 Allergy status to other drugs, medicaments and biological substances
CPT/HCPCS: 36415; 71045; 80053; 82550; 83880; 84484; 85025; 85610; 85730; 93005

== ENCOUNTER → 2020-12-04 | Outpatient (CLI) | payer MEDICARE | END | disposition home or self-care (01) | LOC: SHCH 10:35 | PROVIDERS: ATTEND Internal Medicine Cardiovascular Disease | DX: I73.9 Peripheral vascular disease, unspecified (principal); M79.605 Pain in left leg; R07.9 Chest pain, unspecified | CPT/HCPCS: 93971 ==

== ENCOUNTER → 2020-12-20 | Outpatient (CLI) | payer MEDICARE | END | disposition home or self-care (01) | LOC: RAH 10:57 | PROVIDERS: ATTEND Internal Medicine Cardiovascular Disease | DX: I73.9 Peripheral vascular disease, unspecified (principal); M79.81 Nontraumatic hematoma of soft tissue | CPT/HCPCS: 93931 ==

== ENCOUNTER → 2021-06-18 | Outpatient (CLI) | payer MEDICARE | LOC: DAH 10:00 → EDSTATUS 06-25 07:15 | PROVIDERS: ATTEND Internal Medicine Gastroenterology | DX: Z01.818 Encounter for other preprocedural examination (principal); Z86.010 Personal history of colon polyps; R10.11 Right upper quadrant pain; R12 Heartburn; K31.89 Other diseases of stomach and duodenum; Z20.822 Contact with and (suspected) exposure to COVID-19 | CPT/HCPCS: 87635; C9803 ==

== ENCOUNTER 2021-06-24 09:48 | Emergency (ER) | payer MEDICARE ==
[~2021-06-24] VITALS: Ht 149.9 cm; Wt 77.1 kg
[2021-06-24 10:20] LABS: BASOPHILS % (AUTO) 0.7 % (0.0-5.0); EOSINOPHILS % (AUTO) 0.7 % (0.0-8.0); HEMATOCRIT 39.3 % (36-48); LYMPHOCYTES % (AUTO) 44.8 % (21.0-51.0); MEAN CORPUSCULAR HEMOGLOBIN 31.7 pg (27.0-33.0); MEAN CORPUSCULAR HGB CONC 33.6 g/dL (32.0-36.0); MEAN CORPUSCULAR VOLUME 94.2 fL (79-99); MONOCYTES % (AUTO) 5.6 % (3.0-13.0); PLATELET COUNT (AUTO) 277 K/uL (130-400); RED BLOOD CELL COUNT(AUTO) 4.17 MIL/uL (4.00-5.50); RED CELL DISTRIBUTION WIDTH 13.5 % (11.0-15.5); WHITE BLOOD COUNT (AUTO) 5.7 K/uL (4.8-10.8)
[2021-06-24 10:31] LABS: POTASSIUM 4.4 mmol/L (3.5-5.1)
[2021-06-24 10:37] LABS: ALBUMIN 3.7 g/dL (3.5-5.0); BILIRUBIN,TOTAL 0.6 mg/dL (0.2-1.0); TOTAL PROTEIN, SERUM 6.9 g/dL (6.0-8.3)
[2021-06-24 13:46] VITALS: BP 125/55
== END 2021-06-24 14:30 | disposition home or self-care (01) ==
LOC: EDH 09:48
DX: G44.89 Other headache syndrome (principal); I10 Essential (primary) hypertension; E11.9 Type 2 diabetes mellitus without complications; E78.00 Pure hypercholesterolemia, unspecified; M19.90 Unspecified osteoarthritis, unspecified site; Z88.5 Allergy status to narcotic agent; Z88.6 Allergy status to analgesic agent; Z88.8 Allergy status to other drugs, medicaments and biological substances; Z79.84 Long term (current) use of oral hypoglycemic drugs; Z79.899 Other long term (current) drug therapy
CPT/HCPCS: 36415; 70450; 80053; 84484; 85025; 85651; 93005

== ENCOUNTER 2021-07-16 07:15 | Day surgery (SDC) | payer MEDICARE ==
[2021-07-11 14:37] LABS: BASOPHILS % (AUTO) 0.8 % (0.0-5.0); EOSINOPHILS % (AUTO) 0.6 % (0.0-8.0); HEMATOCRIT 42.1 % (36-48); LYMPHOCYTES % (AUTO) 46.2 % (21.0-51.0); MEAN CORPUSCULAR HEMOGLOBIN 32.5 pg (27.0-33.0); MEAN CORPUSCULAR HGB CONC 33.7 g/dL (32.0-36.0); MEAN CORPUSCULAR VOLUME 96.3 fL (79-99); MONOCYTES % (AUTO) 5.6 % (3.0-13.0); NEUTROPHILS % (AUTO) 46.5 % (40.0-77.0); PLATELET COUNT (AUTO) 286 K/uL (130-400); RED BLOOD CELL COUNT(AUTO) 4.37 MIL/uL (4.00-5.50); RED CELL DISTRIBUTION WIDTH 13.8 % (11.0-15.5); WHITE BLOOD COUNT (AUTO) 7.7 K/uL (4.8-10.8)
[2021-07-11 14:50] LABS: INR 0.99 (0.85-1.15); PROTHROMBIN TIME 10.8 SEC (9.6-11.6)
[2021-07-11 14:55] LABS: ALBUMIN 4.2 g/dL (3.5-5.0); BILIRUBIN,TOTAL 0.5 mg/dL (0.2-1.0); CREATININE 0.9 mg/dL (0.5-1.5); TOTAL PROTEIN, SERUM 7.7 g/dL (6.0-8.3)
[2021-07-16] VITALS (8 sets, daily range): BP systolic 90–145; BP diastolic 34–68
[~2021-07-16] VITALS: Ht 149.9 cm; Wt 75.4 kg
[~2021-07-16 07:15] MED LIST changes: +0.9%NACL 1000ML 1,000 ML IV ONE
[2021-07-16] MEDS ORDERED: PROPOFOL 10 MG/ML 20ML VIAL IV ONE ×2 (09:48)
== END 2021-07-16 11:04 | disposition home or self-care (01) ==
LOC: ENDO 07:15 → DAH 07:15 → ENDO 11:04
PROVIDERS: ATTEND Internal Medicine Gastroenterology
DX: Z12.11 Encounter for screening for malignant neoplasm of colon (principal); Z20.822 Contact with and (suspected) exposure to COVID-19; K63.5 Polyp of colon; K29.50 Unspecified chronic gastritis without bleeding; R10.11 Right upper quadrant pain; K31.89 Other diseases of stomach and duodenum; K76.0 Fatty (change of) liver, not elsewhere classified; K44.9 Diaphragmatic hernia without obstruction or gangrene; J44.9 Chronic obstructive pulmonary disease, unspecified; I10 Essential (primary) hypertension; I25.10 Atherosclerotic heart disease of native coronary artery without angina pectoris; M19.90 Unspecified osteoarthritis, unspecified site; E11.9 Type 2 diabetes mellitus without complications; M81.0 Age-related osteoporosis without current pathological fracture; Z98.890 Other specified postprocedural states; Z90.710 Acquired absence of both cervix and uterus; Z90.49 Acquired absence of other specified parts of digestive tract; Z86.73 Personal history of transient ischemic attack (TIA), and cerebral infarction without residual deficits; Z86.010 Personal history of colon polyps
CPT/HCPCS: 36415; 43239; 45380; 45385; 80053; 82043; 82948 ×2; 85025; 85610; 87635; 88305; 88342; 93005; A4215 ×2; A4221; A4222; A4223; A4606; A4620; A4663; C9803; J2704 ×2; J7030 ×2

== ENCOUNTER 2021-09-10 13:47 | Observation (INO) | payer MEDICARE ==
[~2021-09-10] VITALS: Ht 149.9 cm; Wt 76.2 kg
[~2021-09-10 13:47] MED LIST changes: -0.9%NACL 1000ML 1,000 ML IV ONE
[2021-09-10] MEDS ORDERED: 0.9%NACL 1000ML 1,000 ML IV ONE ×2 (14:03→15:30)
[2021-09-10 14:10] LABS: HEMATOCRIT 42.3 % (36-48); MEAN CORPUSCULAR HGB CONC 33.1 g/dL (32.0-36.0); MEAN CORPUSCULAR VOLUME 96.8 fL (79-99); PLATELET COUNT (AUTO) 345 K/uL (130-400); RED BLOOD CELL COUNT(AUTO) 4.37 MIL/uL (4.00-5.50); RED CELL DISTRIBUTION WIDTH 13.6 % (11.0-15.5); WHITE BLOOD COUNT (AUTO) 9.8 K/uL (4.8-10.8)
[2021-09-10] MEDS ORDERED: SULF1TAB41 PO (14:16)
[2021-09-10] MEDS ORDERED: PRED20TA3 PO (14:16)
[2021-09-10] MEDS ORDERED: ONDA4TAB10 PO (14:16)
[2021-09-10] MEDS ORDERED: SUCR1TAB2 PO (14:16)
[2021-09-10] MEDS ORDERED: ISOS30TA11 PO (14:16)
[2021-09-10] MEDS ORDERED: ASPI-1197 PO (14:16)
[2021-09-10 14:19] LABS: CREATININE 1.4 mg/dL (0.5-1.5); POTASSIUM 3.5 mmol/L (3.5-5.1)
[2021-09-10 14:23] LABS: ALBUMIN 3.2 g/dL (3.5-5.0); BILIRUBIN,TOTAL 0.5 mg/dL (0.2-1.0); TOTAL PROTEIN, SERUM 6.3 g/dL (6.0-8.3)
[2021-09-10 14:49] LABS: LYMPHOCYTES % (MANUAL) 33 % (22-44); MAN.DIFF COMMENT-IMPRESSION MANUAL DIFFERENTIAL; MONOCYTES % (MANUAL) 2 % (2-9); PLATELET MORPHOLOGY COMMENT ADEQUATE; REACTIVE LYMPHOCYTES 1 % (0-0); SEGMENTED NEUTROPHILS % 64 % (40-70)
[2021-09-10] MEDS ORDERED: AZITHROMYCIN 250 MG TABLET PO ONE (15:00)
[2021-09-10] MEDS ORDERED: CEFTRIAXONE 1G VIAL IVP ONE (15:00)
[2021-09-10] MEDS: 0.9%NACL 1000ML 1,000 ML IV SCH (15:33)
[2021-09-10] MEDS: SUCRALFATE 1 GM TABLET PO SCH (20:30)
[2021-09-10] MEDS: CILOSTAZOL 100 MG TAB PO SCH (20:30)
[2021-09-10] MEDS ORDERED: (Rosuvastatin Calcium 20 MG) PO SCH (21:00)
[2021-09-10 23:12] LABS: APPEARANCE,URINE Clear (CLEAR); BILIRUBIN,URINE Negative (NEGATIVE); COLOR,URINE Yellow (YELLOW); GLUCOSE, URINE (UA) Negative (NEGATIVE); KETONES,URINE Negative (NEGATIVE); LEUKOCYTE ESTERASE ,URINE Trace (NEGATIVE); NITRATE,URINE Negative (NEGATIVE); OCCULT BLOOD,URINE Negative (NEGATIVE); PROTEIN,URINE Negative (NEGATIVE)
[2021-09-10 23:18] LABS: BACTERIA,URINE Rare /HPF (None Seen); RBC,URINE None Seen /HPF (0-1); SQUAMOUS EPITHELIAL CELL,UR Few /HPF (0-2); WBC,URINE 0-1 /HPF (0-1)
[2021-09-11] MEDS ORDERED: ONDANSETRON 4MG INJ IVP PRN (02:30)
[2021-09-11] MEDS: 0.9%NACL 1000ML 1,000 ML IV SCH (06:18)
[2021-09-11 06:21] LABS: CARBON DIOXIDE 25 mmol/L (21-32); CHLORIDE 104 mmol/L (101-111); CREATININE 0.9 mg/dL (0.5-1.5); GLOMERULAR FILTR. RATE CALC 65 mL/min (>60); GLUCOSE,RANDOM 133 mg/dL (70-105); POTASSIUM 3.5 mmol/L (3.5-5.1); SODIUM SERUM 136 mmol/L (136-145); UREA NITROGEN, BLOOD 18 mg/dL (7-18)
[2021-09-11 06:23] LABS: CRP QUANTITATIVE < 2.00 mg/L (0.00-9.0)
[2021-09-11] MEDS ORDERED: CARVEDILOL 6.25 MG TABLET PO SCH (09:00)
[2021-09-11] MEDS ORDERED: ACETAMINOPHEN 500 MG TABLET PO PRN (09:00)
[2021-09-11] MEDS ORDERED: ACETAMINOPHEN 325 MG TAB ONE (09:33)
[2021-09-11] MEDS: SUCRALFATE 1 GM TABLET PO SCH ×3 (09:55→21:15)
[2021-09-11] MEDS: ASPIRIN 81MG CHEW TAB PO SCH (09:55)
[2021-09-11] MEDS: CILOSTAZOL 100 MG TAB PO SCH ×2 (09:56→21:15)
[2021-09-11] MEDS: CLOPIDOGREL 75MG TAB PO SCH (09:56)
[2021-09-11] MEDS: PANTOPRAZOLE 40 MG TAB DR PO SCH (09:56)
[2021-09-11 17:00] VITALS: BP 212/68
[2021-09-11] MEDS ORDERED: LOSARTAN 50 MG TABLET PO SCH (17:00)
[2021-09-11] MEDS ORDERED: HYDRALAZINE 20MG/ML VIAL IV PRN ×2 (17:00)
[2021-09-11] MEDS ORDERED: HYDRALAZINE 20MG/ML VIAL ONE (17:03)
[2021-09-11 17:45] VITALS: BP 120/41
[2021-09-11 20:00] VITALS: BP 146/47
[2021-09-11] MEDS ORDERED: ATORVASTATIN 40 MG TABLET PO SCH (21:00)
[2021-09-11] MEDS: CARVEDILOL 12.5 MG TABLET PO SCH (21:15)
[2021-09-12] VITALS: BP 117/51
[2021-09-12] MEDS ORDERED: HYDROXYZINE 25 MG TABLET PO ONE (01:00)
[2021-09-12 04:00] VITALS: BP 126/43
[2021-09-12 05:15] LABS: BASOPHILS % (AUTO) 0.1 % (0.0-5.0); EOSINOPHILS % (AUTO) 0.7 % (0.0-8.0); HEMATOCRIT 38.7 % (36-48); LYMPHOCYTES % (AUTO) 30.4 % (21.0-51.0); MEAN CORPUSCULAR HEMOGLOBIN 30.9 pg (27.0-33.0); MEAN CORPUSCULAR HGB CONC 32.3 g/dL (32.0-36.0); MEAN CORPUSCULAR VOLUME 95.6 fL (79-99); MONOCYTES % (AUTO) 5.7 % (3.0-13.0); NEUTROPHILS % (AUTO) 62.8 % (40.0-77.0); PLATELET COUNT (AUTO) 277 K/uL (130-400); RED BLOOD CELL COUNT(AUTO) 4.05 MIL/uL (4.00-5.50); RED CELL DISTRIBUTION WIDTH 13.6 % (11.0-15.5); WHITE BLOOD COUNT (AUTO) 8.8 K/uL (4.8-10.8)
[2021-09-12 05:22] LABS: CREATININE 0.8 mg/dL (0.5-1.5); POTASSIUM 3.7 mmol/L (3.5-5.1)
[2021-09-12 08:00] VITALS: BP 117/44
[2021-09-12] MEDS: CILOSTAZOL 100 MG TAB PO SCH (08:29)
[2021-09-12] MEDS: ASPIRIN 81MG CHEW TAB PO SCH (08:29)
[2021-09-12] MEDS: PANTOPRAZOLE 40 MG TAB DR PO SCH (08:29)
[2021-09-12] MEDS: CLOPIDOGREL 75MG TAB PO SCH (08:29)
[2021-09-12] MEDS: CARVEDILOL 12.5 MG TABLET PO SCH (08:30)
[2021-09-12] MEDS: SUCRALFATE 1 GM TABLET PO SCH ×2 (08:35→13:07)
[2021-09-12] MEDS ORDERED: ISOSORBIDE MONO 30MG SR TAB PO SCH (09:00)
[2021-09-12] MEDS ORDERED: LOSARTAN 50 MG TABLET PO SCH (09:00)
[2021-09-12 12:00] VITALS: BP 139/52
[2021-09-12] MEDS ORDERED: MAGNESIUM CITRATE 296 ML SOLUTION PO SCH (13:00)
== END 2021-09-12 17:50 | disposition home or self-care (01) ==
LOC: EDH 13:47 → EDHIP 15:24 → 4AH 09-11 17:00
PROVIDERS: ADMIT Internal Medicine; ATTEND Internal Medicine
DX: U07.1 COVID-19 (principal); J12.82 Pneumonia due to coronavirus disease 2019; I95.9 Hypotension, unspecified; E87.6 Hypokalemia; I10 Essential (primary) hypertension; E78.5 Hyperlipidemia, unspecified; I25.2 Old myocardial infarction; R07.89 Other chest pain; R11.2 Nausea with vomiting, unspecified; E87.1 Hypo-osmolality and hyponatremia; E86.1 Hypovolemia; E11.9 Type 2 diabetes mellitus without complications; E78.00 Pure hypercholesterolemia, unspecified; A08.39 Other viral enteritis; I25.10 Atherosclerotic heart disease of native coronary artery without angina pectoris; J44.0 Chronic obstructive pulmonary disease with (acute) lower respiratory infection; K44.9 Diaphragmatic hernia without obstruction or gangrene; K57.90 Diverticulosis of intestine, part unspecified, without perforation or abscess without bleeding; M47.815 Spondylosis without myelopathy or radiculopathy, thoracolumbar region; N17.9 Acute kidney failure, unspecified; N28.1 Cyst of kidney, acquired; M71.22 Synovial cyst of popliteal space [Baker], left knee; Z87.891 Personal history of nicotine dependence; Z86.73 Personal history of transient ischemic attack (TIA), and cerebral infarction without residual deficits; Z88.6 Allergy status to analgesic agent; Z95.1 Presence of aortocoronary bypass graft; Z79.82 Long term (current) use of aspirin; Z79.84 Long term (current) use of oral hypoglycemic drugs; Z90.49 Acquired absence of other specified parts of digestive tract
CPT/HCPCS: 36415 ×3; 70450; 71045; 74176; 80048 ×2; 80053; 81001; 82948 ×4; 83605; 83880; 84145; 84443; 84484 ×3; 85025 ×2; 85378; 86140; 87040 ×2; 87088; 87635; 87804 ×2; 93005; 93970; 96361 ×2; 96374; 99291; C9803; G0378 ×51; J0360; J0696; J7030 ×2

== ENCOUNTER 2021-12-01 15:24 | Emergency (ER) | payer MEDICARE ==
[~2021-12-01] VITALS: Ht 149.9 cm; Wt 72.6 kg
[~2021-12-01 15:24] MED LIST changes: +ASPI-1197 PO; -FURO20TA4 PO; +ISOS30TA11 PO; +ONDA4TAB10 PO; +PRED20TA3 PO; -RANO500T2 PO; +SUCR1TAB2 PO; +SULF1TAB41 PO
[2021-12-01 15:58] LABS: BASOPHILS % (AUTO) 0.4 % (0.0-5.0); EOSINOPHILS % (AUTO) 0.4 % (0.0-8.0); HEMATOCRIT 40.5 % (36-48); LYMPHOCYTES % (AUTO) 34.7 % (21.0-51.0); MEAN CORPUSCULAR HEMOGLOBIN 32.4 pg (27.0-33.0); MEAN CORPUSCULAR HGB CONC 32.8 g/dL (32.0-36.0); MEAN CORPUSCULAR VOLUME 98.8 fL (79-99); MONOCYTES % (AUTO) 6.9 % (3.0-13.0); NEUTROPHILS % (AUTO) 57.5 % (40.0-77.0); PLATELET COUNT (AUTO) 281 K/uL (130-400); RED CELL DISTRIBUTION WIDTH 14.5 % (11.0-15.5); WHITE BLOOD COUNT (AUTO) 7.8 K/uL (4.8-10.8)
[2021-12-01 16:08] LABS: CREATININE 0.8 mg/dL (0.5-1.5); POTASSIUM 3.6 mmol/L (3.5-5.1)
[2021-12-01 16:24] LABS: ALBUMIN 3.3 g/dL (3.5-5.0); BILIRUBIN,TOTAL 0.4 mg/dL (0.2-1.0); TOTAL PROTEIN, SERUM 6.3 g/dL (6.0-8.3)
[2021-12-01 16:27] LABS: B-TYPE NATRIURETIC PEPTIDE 64 pg/mL (0-100)
[2021-12-01] MEDS ORDERED: ACETAMINOPHEN 325 MG TAB PO ONE (17:00)
[2021-12-01] MEDS ORDERED: IOHEXOL 350 MG/ML 100ML INFUS..BTL IV ONE (20:04)
[2021-12-01 21:51] VITALS: BP 168/75
[2021-12-01] MEDS ORDERED: FLUT16H NASAL (21:56)
[2021-12-01] MEDS ORDERED: ACET-2743 PO (21:56)
== END 2021-12-01 22:14 | disposition home or self-care (01) ==
LOC: EDH 15:24
DX: R51.9 Headache, unspecified (principal); R07.89 Other chest pain; E11.9 Type 2 diabetes mellitus without complications; E78.00 Pure hypercholesterolemia, unspecified; I10 Essential (primary) hypertension; Z88.6 Allergy status to analgesic agent; Z88.5 Allergy status to narcotic agent; Z79.899 Other long term (current) drug therapy; Z79.82 Long term (current) use of aspirin; Z79.84 Long term (current) use of oral hypoglycemic drugs; Z90.49 Acquired absence of other specified parts of digestive tract; Z98.890 Other specified postprocedural states
CPT/HCPCS: 36415; 71045; 71275; 80053; 82550; 83880; 84484 ×2; 85025; 85378; 93005 ×2; 99284; Q9967

== ENCOUNTER → 2021-12-25 | Outpatient (CLI) | payer MEDICARE ==
[~2021-12-25] MED LIST changes: +ACET-2743 PO; +FLUT16H NASAL
== END | disposition home or self-care (01) ==
LOC: RAH 10:34
PROVIDERS: ATTEND Internal Medicine Gastroenterology
DX: R14.0 Abdominal distension (gaseous) (principal); R68.81 Early satiety
CPT/HCPCS: 78264; A9541

== ENCOUNTER 2022-02-16 21:26 | Emergency (ER) | payer MEDICARE ==
[~2022-02-16] VITALS: Ht 149.9 cm; Wt 71.2 kg
[2022-02-16 21:54] LABS: APPEARANCE,URINE CLEAR (CLEAR); BASOPHILS % (AUTO) 0.5 % (0.0-5.0); BILIRUBIN,URINE NEGATIVE (NEGATIVE); COLOR,URINE YELLOW (YELLOW); EOSINOPHILS % (AUTO) 0.5 % (0.0-8.0); GLUCOSE, URINE (UA) NEGATIVE (NEGATIVE); HEMATOCRIT 40.5 % (36-48); KETONES,URINE 5 mg/dL (NEGATIVE); LEUKOCYTE ESTERASE ,URINE NEGATIVE (NEGATIVE); LYMPHOCYTES % (AUTO) 43.9 % (21.0-51.0); MEAN CORPUSCULAR HEMOGLOBIN 32.6 pg (27.0-33.0); MEAN CORPUSCULAR HGB CONC 35.3 g/dL (32.0-36.0); MEAN CORPUSCULAR VOLUME 92.3 fL (79-99); NEUTROPHILS % (AUTO) 48.9 % (40.0-77.0); NITRATE,URINE NEGATIVE (NEGATIVE); OCCULT BLOOD,URINE TRACE-INTACT (NEGATIVE); PLATELET COUNT (AUTO) 311 K/uL (130-400); PROTEIN,URINE 30 mg/dL (NEGATIVE); RED BLOOD CELL COUNT(AUTO) 4.39 MIL/uL (4.00-5.50); RED CELL DISTRIBUTION WIDTH 13.3 % (11.0-15.5); UROBILINOGEN,URINE 0.2 mg/dL (0.2-1.0); WHITE BLOOD COUNT (AUTO) 9.7 K/uL (4.8-10.8)
[2022-02-16 22:02] LABS: BACTERIA,URINE Few /HPF (None Seen); MUCUS,URINE Few LPF (None Seen); SQUAMOUS EPITHELIAL CELL,UR Moderate /HPF (0-2)
[2022-02-16 22:07] LABS: ALBUMIN 3.7 g/dL (3.5-5.0); BILIRUBIN,TOTAL 0.5 mg/dL (0.2-1.0); CREATININE 1.2 mg/dL (0.5-1.5)
[2022-02-16 22:11] LABS: POTASSIUM 2.9 mmol/L (3.5-5.1)
[2022-02-16] MEDS ORDERED: POTASSIUM CHLORIDE 10% ELIXIR 20 MEQ/15 ML UDCUP PO ONE (22:30)
[2022-02-16] MEDS ORDERED: DOCU-116 PO (23:56)
[2022-02-17] MEDS ORDERED: MAGNESIUM CITRATE 296 ML SOLUTION PO ONE
[2022-02-17 00:08] VITALS: BP 156/74
== END 2022-02-17 00:44 | disposition home or self-care (01) ==
LOC: EDH 21:26
DX: K59.00 Constipation, unspecified (principal); K57.90 Diverticulosis of intestine, part unspecified, without perforation or abscess without bleeding; E87.6 Hypokalemia; M19.90 Unspecified osteoarthritis, unspecified site; J45.909 Unspecified asthma, uncomplicated; E11.9 Type 2 diabetes mellitus without complications; I10 Essential (primary) hypertension; Z88.6 Allergy status to analgesic agent; Z88.5 Allergy status to narcotic agent; Z88.8 Allergy status to other drugs, medicaments and biological substances; Z79.899 Other long term (current) drug therapy; Z79.82 Long term (current) use of aspirin; Z79.84 Long term (current) use of oral hypoglycemic drugs; Z98.890 Other specified postprocedural states
CPT/HCPCS: 36415; 74176; 80053; 81001; 82150; 85025; 93005

== ENCOUNTER 2022-03-02 14:45 | Emergency (ER) | payer MEDICARE ==
[~2022-03-02] VITALS: Ht 149.9 cm; Wt 71.2 kg
[~2022-03-02 14:45] MED LIST changes: +DOCU-116 PO
[2022-03-02 14:46] VITALS: BP 101/65
[2022-03-02] MEDS ORDERED: 0.9% NACL 500ML IV.SOLN 500 ML IV SCH (15:00)
[2022-03-02] MEDS ORDERED: CYCLOBENZAPRINE HCL 10 MG TABLET PO ONE (15:00)
[2022-03-02] MEDS ORDERED: ACETAMINOPHEN 500 MG TABLET PO ONE (15:00)
[2022-03-02] MEDS ORDERED: PROMETHAZINE HCL 25 MG/ML 1ML AMPULE IVPB SCH (15:00)
[2022-03-02 15:37] LABS: BASOPHILS % (AUTO) 0.8 % (0.0-5.0); EOSINOPHILS % (AUTO) 0.5 % (0.0-8.0); HEMATOCRIT 39.3 % (36-48); LYMPHOCYTES % (AUTO) 46.4 % (21.0-51.0); MEAN CORPUSCULAR HEMOGLOBIN 32.7 pg (27.0-33.0); MEAN CORPUSCULAR HGB CONC 33.6 g/dL (32.0-36.0); MEAN CORPUSCULAR VOLUME 97.3 fL (79-99); MONOCYTES % (AUTO) 6.7 % (3.0-13.0); NEUTROPHILS % (AUTO) 45.4 % (40.0-77.0); PLATELET COUNT (AUTO) 306 K/uL (130-400); RED BLOOD CELL COUNT(AUTO) 4.04 MIL/uL (4.00-5.50); RED CELL DISTRIBUTION WIDTH 14.1 % (11.0-15.5); WHITE BLOOD COUNT (AUTO) 6.5 K/uL (4.8-10.8)
[2022-03-02 15:38] LABS: APPEARANCE,URINE CLEAR (CLEAR); BILIRUBIN,URINE NEGATIVE (NEGATIVE); COLOR,URINE YELLOW (YELLOW); GLUCOSE, URINE (UA) NEGATIVE (NEGATIVE); KETONES,URINE NEGATIVE (NEGATIVE); LEUKOCYTE ESTERASE ,URINE NEGATIVE (NEGATIVE); NITRATE,URINE NEGATIVE (NEGATIVE); OCCULT BLOOD,URINE NEGATIVE (NEGATIVE); PH,URINE 6.5 (5.0-8.0); PROTEIN,URINE NEGATIVE (NEGATIVE); UROBILINOGEN,URINE 0.2 mg/dL (0.2-1.0)
[2022-03-02 15:50] LABS: CARBON DIOXIDE 31 mmol/L (21-32); CHLORIDE 107 mmol/L (101-111); CREATININE 1.1 mg/dL (0.5-1.5); GLOMERULAR FILTR. RATE CALC 51 mL/min (>60); GLUCOSE,RANDOM 120 mg/dL (70-105); POTASSIUM 3.5 mmol/L (3.5-5.1); SODIUM SERUM 141 mmol/L (136-145); UREA NITROGEN, BLOOD 11 mg/dL (7-18)
[2022-03-02 15:59] LABS: ALANINE AMINOTRANSFERASE 23 U/L (12-78); ALBUMIN 3.6 g/dL (3.5-5.0); ASPARTATE AMINOTRANSFERASE 9 U/L (10-37); TOTAL PROTEIN, SERUM 6.9 g/dL (6.0-8.3)
[2022-03-02 16:00] LABS: CRP QUANTITATIVE < 2.00 mg/L (0.00-9.0)
[2022-03-02] MEDS ORDERED: NAPR-1180 PO (16:29)
[2022-03-02] MEDS ORDERED: CYCL10TA16 PO (16:29)
== END 2022-03-02 17:22 | disposition home or self-care (01) ==
LOC: EDH 14:45
DX: G44.209 Tension-type headache, unspecified, not intractable (principal); E11.9 Type 2 diabetes mellitus without complications; I10 Essential (primary) hypertension; E66.9 Obesity, unspecified; Z68.31 Body mass index [BMI] 31.0-31.9, adult; M19.90 Unspecified osteoarthritis, unspecified site; J44.9 Chronic obstructive pulmonary disease, unspecified; Z88.6 Allergy status to analgesic agent; Z88.5 Allergy status to narcotic agent; Z88.8 Allergy status to other drugs, medicaments and biological substances; Z79.899 Other long term (current) drug therapy; Z79.82 Long term (current) use of aspirin; Z98.890 Other specified postprocedural states; Z90.49 Acquired absence of other specified parts of digestive tract
CPT/HCPCS: 99284; 96374; 70450; 84484; 80053; 85025; 86140; 81003; 36415; J7040; J2550

== ENCOUNTER 2022-04-10 22:55 | Emergency (ER) | payer MEDICARE ==
[~2022-04-10] VITALS: Ht 149.9 cm; Wt 70.3 kg
[~2022-04-10 22:55] MED LIST changes: -CILO100T PO; +CILO100T3 PO; +CYCL10TA16 PO; +NAPR-1180 PO
[2022-04-10] MEDS ORDERED: KETOROLAC 15MG/ML VIAL (15MG/ML) IV ONE (23:00)
[2022-04-10] MEDS ORDERED: NAPR-1180 PO (23:40)
[2022-04-10 23:44] VITALS: BP 135/59
[2022-05-11] MEDS ORDERED: CILO100T3 PO (15:27)
== END 2022-04-11 00:15 | disposition home or self-care (01) ==
LOC: EDH 22:55
DX: S52.122A Displaced fracture of head of left radius, initial encounter for closed fracture (principal); S43.402A Unspecified sprain of left shoulder joint, initial encounter; S50.02XA Contusion of left elbow, initial encounter; I10 Essential (primary) hypertension; I25.10 Atherosclerotic heart disease of native coronary artery without angina pectoris; J44.9 Chronic obstructive pulmonary disease, unspecified; E66.9 Obesity, unspecified; E11.9 Type 2 diabetes mellitus without complications; M19.90 Unspecified osteoarthritis, unspecified site; F17.200 Nicotine dependence, unspecified, uncomplicated; Z88.5 Allergy status to narcotic agent; Z88.6 Allergy status to analgesic agent; Z88.8 Allergy status to other drugs, medicaments and biological substances; Z79.52 Long term (current) use of systemic steroids; Z79.82 Long term (current) use of aspirin; Z79.899 Other long term (current) drug therapy; Z90.49 Acquired absence of other specified parts of digestive tract; Z95.1 Presence of aortocoronary bypass graft; Z79.1 Long term (current) use of non-steroidal anti-inflammatories (NSAID); Z68.31 Body mass index [BMI] 31.0-31.9, adult; X58.XXXA Exposure to other specified factors, initial encounter; Y93.89 Activity, other specified; Y92.89 Other specified places as the place of occurrence of the external cause; Y99.8 Other external cause status
CPT/HCPCS: 99285; 96374; 73070; 73030; J1885

== ENCOUNTER 2022-05-11 12:42 | Emergency (ER) | payer MEDICARE ==
[~2022-05-11] VITALS: Ht 162.6 cm; Wt 74.8 kg
[~2022-05-11 12:42] MED LIST changes: +CILO100T PO; -CILO100T3 PO
[2022-05-11 13:55] LABS: BASOPHILS % (AUTO) 0.8 % (0.0-5.0); EOSINOPHILS % (AUTO) 0.9 % (0.0-8.0); HEMATOCRIT 38.2 % (36-48); LYMPHOCYTES % (AUTO) 37.9 % (21.0-51.0); MEAN CORPUSCULAR HEMOGLOBIN 32.3 pg (27.0-33.0); MEAN CORPUSCULAR HGB CONC 33.5 g/dL (32.0-36.0); MEAN CORPUSCULAR VOLUME 96.5 fL (79-99); MONOCYTES % (AUTO) 6.1 % (3.0-13.0); NEUTROPHILS % (AUTO) 54.1 % (40.0-77.0); PLATELET COUNT (AUTO) 265 K/uL (130-400); RED BLOOD CELL COUNT(AUTO) 3.96 MIL/uL (4.00-5.50); RED CELL DISTRIBUTION WIDTH 13.5 % (11.0-15.5); WHITE BLOOD COUNT (AUTO) 6.6 K/uL (4.8-10.8)
[2022-05-11 13:58] LABS: CREATININE 0.9 mg/dL (0.5-1.5); POTASSIUM 3.9 mmol/L (3.5-5.1)
[2022-05-11 14:03] LABS: ALBUMIN 3.3 g/dL (3.5-5.0); TOTAL PROTEIN, SERUM 6.6 g/dL (6.0-8.3)
[2022-05-11 14:12] LABS: B-TYPE NATRIURETIC PEPTIDE 60 pg/mL (0-100)
[2022-05-11 15:20] LABS: INR 0.94 (0.85-1.15); PROTHROMBIN TIME 10.3 SEC (9.6-11.6)
[2022-05-11 15:21] LABS: PARTIAL THROMBOPLASTIN TIME 25.2 SEC (26.3-35.5)
[2022-05-11] MEDS ORDERED: ISOS60TA77 PO (15:27)
[2022-05-11] MEDS ORDERED: FURO20TA4 PO (15:27)
[2022-05-11] MEDS ORDERED: CILO100T PO (15:27)
[2022-05-11] MEDS ORDERED: ACETAMINOPHEN 325 MG TAB PO ONE (16:30)
[2022-05-11 17:05] VITALS: BP 162/52
[2022-05-11] MEDS ORDERED: OSELTAMIVIR PHOSPHATE 75 MG CAP ONE (17:52)
[2022-05-11] MEDS ORDERED: BENZ-39 PO (17:56)
[2022-05-11] MEDS ORDERED: OSEL75 PO (17:56)
[2022-05-11] MEDS ORDERED: ACET-66 PO (17:56)
[2022-05-11] MEDS ORDERED: OSELTAMIVIR PHOSPHATE 75 MG CAP PO SCH (18:00)
== END 2022-05-11 18:08 | disposition home or self-care (01) ==
LOC: EDH 12:42
DX: J10.1 Influenza due to other identified influenza virus with other respiratory manifestations (principal); G89.29 Other chronic pain; I70.202 Unspecified atherosclerosis of native arteries of extremities, left leg; E11.9 Type 2 diabetes mellitus without complications; E78.00 Pure hypercholesterolemia, unspecified; I10 Essential (primary) hypertension; F17.200 Nicotine dependence, unspecified, uncomplicated; Z88.6 Allergy status to analgesic agent; Z88.5 Allergy status to narcotic agent; Z88.8 Allergy status to other drugs, medicaments and biological substances; Z79.899 Other long term (current) drug therapy; Z79.82 Long term (current) use of aspirin; Z79.84 Long term (current) use of oral hypoglycemic drugs; Z98.890 Other specified postprocedural states
CPT/HCPCS: 36415; 71045; 80053; 82550; 83880; 84484; 85025; 85610; 85730; 87804; 93926; 93971

== ENCOUNTER 2022-05-31 12:56 | Emergency (ER) | payer MEDICARE ==
[~2022-05-31] VITALS: Ht 149.9 cm; Wt 72.6 kg
[~2022-05-31 12:56] MED LIST changes: +ACET-66 PO; +BENZ-39 PO; -CILO100T PO; +CILO100T3 PO; +FURO20TA4 PO; -ISOS30TA11 PO; +ISOS60TA77 PO; +OSEL75 PO
[2022-05-31 15:43] VITALS: BP 157/62
== END 2022-05-31 16:28 | disposition home or self-care (01) ==
LOC: EDH 12:56
DX: S80.02XA Contusion of left knee, initial encounter (principal); S70.12XA Contusion of left thigh, initial encounter; M25.512 Pain in left shoulder; E66.9 Obesity, unspecified; E11.9 Type 2 diabetes mellitus without complications; I10 Essential (primary) hypertension; E78.00 Pure hypercholesterolemia, unspecified; Z79.1 Long term (current) use of non-steroidal anti-inflammatories (NSAID); Z79.52 Long term (current) use of systemic steroids; Z79.82 Long term (current) use of aspirin; Z88.5 Allergy status to narcotic agent; Z88.6 Allergy status to analgesic agent; Z88.8 Allergy status to other drugs, medicaments and biological substances; Z68.32 Body mass index [BMI] 32.0-32.9, adult; X58.XXXA Exposure to other specified factors, initial encounter; F17.200 Nicotine dependence, unspecified, uncomplicated; Y93.89 Activity, other specified; Y92.89 Other specified places as the place of occurrence of the external cause; Y99.8 Other external cause status
CPT/HCPCS: 29505; 71046; 73030; 73552; 73590; 73630

== ENCOUNTER 2022-09-24 15:49 | Emergency (ER) | payer MEDICARE ==
[~2022-09-24] VITALS: Ht 160 cm; Wt 63.5 kg
[2022-09-24 16:48] LABS: BASOPHILS % (AUTO) 0.5 % (0.0-5.0); EOSINOPHILS % (AUTO) 1.9 % (0.0-8.0); HEMATOCRIT 38.6 % (36-48); LYMPHOCYTES % (AUTO) 26.7 % (21.0-51.0); MEAN CORPUSCULAR HEMOGLOBIN 32.3 pg (27.0-33.0); MEAN CORPUSCULAR HGB CONC 32.9 g/dL (32.0-36.0); MEAN CORPUSCULAR VOLUME 98.2 fL (79-99); MONOCYTES % (AUTO) 7.8 % (3.0-13.0); NEUTROPHILS % (AUTO) 62.7 % (40.0-77.0); PLATELET COUNT (AUTO) 316 K/uL (130-400); RED BLOOD CELL COUNT(AUTO) 3.93 MIL/uL (4.00-5.50); RED CELL DISTRIBUTION WIDTH 14.1 % (11.0-15.5); WHITE BLOOD COUNT (AUTO) 8.5 K/uL (4.8-10.8)
[2022-09-24 16:56] LABS: POTASSIUM 4.2 mmol/L (3.5-5.1)
[2022-09-24 17:01] LABS: ALBUMIN 3.3 g/dL (3.5-5.0); TOTAL PROTEIN, SERUM 6.6 g/dL (6.0-8.3)
[2022-09-24 17:27] VITALS: BP 114/42
[2022-09-24] MEDS ORDERED: IOHEXOL 350 MG/ML 100ML INFUS..BTL IV ONE (20:12)
== END 2022-09-24 22:55 | disposition home or self-care (01) ==
LOC: EDH 15:49
DX: F41.9 Anxiety disorder, unspecified (principal); R06.02 Shortness of breath; J45.909 Unspecified asthma, uncomplicated; I10 Essential (primary) hypertension; E11.9 Type 2 diabetes mellitus without complications; E66.9 Obesity, unspecified; E78.00 Pure hypercholesterolemia, unspecified; F17.200 Nicotine dependence, unspecified, uncomplicated; Z79.82 Long term (current) use of aspirin; Z79.52 Long term (current) use of systemic steroids; Z79.1 Long term (current) use of non-steroidal anti-inflammatories (NSAID); Z88.5 Allergy status to narcotic agent; Z88.6 Allergy status to analgesic agent; Z88.8 Allergy status to other drugs, medicaments and biological substances; Z95.1 Presence of aortocoronary bypass graft; Z79.899 Other long term (current) drug therapy; Z68.24 Body mass index [BMI] 24.0-24.9, adult; Z20.822 Contact with and (suspected) exposure to COVID-19
CPT/HCPCS: 99285; 71275; 71045; 87635; 84484; 80053; 83880; 85025; 85378; 87804 ×2; 36415; 93005; C9803; Q9967

== ENCOUNTER 2022-10-22 19:18 | Emergency (ER) | payer MEDICARE ==
[2022-10-22] MEDS ORDERED: ACETAMINOPHEN 500 MG TABLET PO ONE (20:00)
[2022-10-22 20:31] VITALS: BP 168/74
[2022-10-22] MEDS ORDERED: ACET-66 PO (22:22)
== END 2022-10-22 22:45 | disposition home or self-care (01) ==
LOC: EDH 19:18
DX: M17.11 Unilateral primary osteoarthritis, right knee (principal); E11.9 Type 2 diabetes mellitus without complications; E78.00 Pure hypercholesterolemia, unspecified; I10 Essential (primary) hypertension; J45.909 Unspecified asthma, uncomplicated; F17.200 Nicotine dependence, unspecified, uncomplicated; Z95.1 Presence of aortocoronary bypass graft; Z79.82 Long term (current) use of aspirin; Z79.01 Long term (current) use of anticoagulants; Z79.899 Other long term (current) drug therapy; Z79.1 Long term (current) use of non-steroidal anti-inflammatories (NSAID); Z79.52 Long term (current) use of systemic steroids; Z88.5 Allergy status to narcotic agent; Z88.6 Allergy status to analgesic agent; Z88.8 Allergy status to other drugs, medicaments and biological substances; W18.39XA Other fall on same level, initial encounter; Y93.89 Activity, other specified; Y92.89 Other specified places as the place of occurrence of the external cause; Y99.8 Other external cause status
CPT/HCPCS: 73562; 73600

== ENCOUNTER → 2023-04-17 | Outpatient (CLI) | payer MEDICARE ==
[~2023-04-17] MED LIST changes: -ROSU20TA31 PO; +ROSU20TA73 PO
[2023-04-17 13:14] LABS: CREATININE 0.9 mg/dL (0.5-1.5); POTASSIUM 4.4 mmol/L (3.5-5.1)
== END | disposition home or self-care (01) ==
LOC: LAB 12:34
PROVIDERS: ATTEND Internal Medicine Gastroenterology
DX: R10.12 Left upper quadrant pain (principal); Z80.0 Family history of malignant neoplasm of digestive organs
CPT/HCPCS: 36415; 80048

== ENCOUNTER → 2023-04-21 | Outpatient (CLI) | payer MEDICARE ==
[~2023-04-21] MED LIST changes: +IOHEXOL-350 75 ML VIAL IV ONE
== END | disposition home or self-care (01) ==
LOC: RAH 09:28
PROVIDERS: ATTEND Internal Medicine Gastroenterology
DX: N28.1 Cyst of kidney, acquired (principal); R10.12 Left upper quadrant pain; M47.815 Spondylosis without myelopathy or radiculopathy, thoracolumbar region; K57.90 Diverticulosis of intestine, part unspecified, without perforation or abscess without bleeding; N32.89 Other specified disorders of bladder
CPT/HCPCS: 74177; Q9967

== ENCOUNTER → 2023-07-13 | Outpatient (CLI) | payer MEDICARE ==
[~2023-07-13] MED LIST changes: -IOHEXOL-350 75 ML VIAL IV ONE; -OLME20TA22 PO; +OLME20TA68 PO
== END | disposition home or self-care (01) ==
LOC: SHCH 10:53
PROVIDERS: ATTEND Internal Medicine Cardiovascular Disease
DX: M71.22 Synovial cyst of popliteal space [Baker], left knee (principal); I73.9 Peripheral vascular disease, unspecified
CPT/HCPCS: 93925

== ENCOUNTER 2023-09-28 17:00 | Emergency (ER) | payer OTHER, MEDICARE ==
[~2023-09-28] VITALS: Ht 149.9 cm; Wt 81.6 kg
[~2023-09-28 17:00] MED LIST changes: -ACET-2743 PO; -BENZ-39 PO; -CILO100T3 PO; -CLOP75TA32 PO; -CYCL10TA16 PO; -DOCU-116 PO; -FLUT16H NASAL; -FURO20TA4 PO; -ISOS60TA77 PO; -METF-444 PO; -NAPR-1180 PO; -ONDA4TAB10 PO; -OSEL75 PO; -PRED20TA3 PO; +RIVA2.5T PO; -SUCR1TAB2 PO; -SULF1TAB41 PO
[2023-09-28 17:51] LABS: BASOPHILS # (AUTO) 0.05 K/uL (0.00-0.20); BASOPHILS % (AUTO) 0.5 % (0.0-5.0); EOSINOPHILS # (AUTO) 0.06 K/uL (0.00-0.70); EOSINOPHILS % (AUTO) 0.6 % (0.0-8.0); HEMATOCRIT 38.1 % (36-48); IMMATURE GRANULOCYTE ABSOLUTE 0.04 K/uL (0-1); LYMPHOCYTES # (AUTO) 3.4 K/uL (1.0-4.8); LYMPHOCYTES % (AUTO) 36.4 % (21.0-51.0); MEAN CORPUSCULAR HGB CONC 33.6 g/dL (32.0-36.0); MEAN CORPUSCULAR VOLUME 95.3 fL (79-99); MONOCYTES # (AUTO) 0.7 K/uL (0.1-1.0); MONOCYTES % (AUTO) 7.4 % (3.0-13.0); NEUTROPHILS # (AUTO) 5.1 K/uL (1.8-7.7); NEUTROPHILS % (AUTO) 54.7 % (40.0-77.0); PLATELET COUNT (AUTO) 276 K/uL (130-400); RED CELL DISTRIBUTION WIDTH 13.4 % (11.0-15.5); WHITE BLOOD COUNT (AUTO) 9.4 K/uL (4.8-10.8)
[2023-09-28 18:04] LABS: CREATININE 1.2 mg/dL (0.5-1.5); POTASSIUM 4.2 mmol/L (3.5-5.1)
[2023-09-28 18:08] LABS: ALBUMIN 3.1 g/dL (3.5-5.0); BILIRUBIN,TOTAL 0.1 mg/dL (0.2-1.0); TOTAL PROTEIN, SERUM 6.3 g/dL (6.0-8.3)
[2023-09-28] MEDS: FAMOTIDINE 20MG VIAL IV ONE (18:18)
[2023-09-28] MEDS: METOCLOPRAMIDE 10 MG/2 ML VIAL IVP ONE (18:22)
[2023-09-28] MEDS: KETOROLAC 30MG VIAL (30MG/ML) IVP ONE (18:22)
[2023-09-28] MEDS: 0.9%NACL 1000ML 1,632 ML IV ONE (18:23)
[2023-09-28 19:12] VITALS: BP 117/69; PULSE 70; RESP 16; O2SAT 98
[2023-09-28 19:30] LABS: ADD UA MICROSCOPIC YES; APPEARANCE,URINE CLEAR (CLEAR); BILIRUBIN,URINE NEGATIVE (NEGATIVE); COLOR,URINE LIGHT-YELLOW (YELLOW); GLUCOSE, URINE (UA) NEGATIVE (NEGATIVE); KETONES,URINE NEGATIVE (NEGATIVE); LEUKOCYTE ESTERASE ,URINE NEGATIVE Leu/uL (NEGATIVE); NITRATE,URINE NEGATIVE (NEGATIVE); OCCULT BLOOD,URINE NEGATIVE (NEGATIVE); PH,URINE 6.5 (5.0-8.0); PROTEIN,URINE NEGATIVE (NEGATIVE); UROBILINOGEN,URINE 0.2 mg/dL (0.2-1.0)
[2023-09-28 19:33] LABS: SQUAMOUS EPITHELIAL CELL,UR RARE /HPF (0-2); WBC,URINE 0-1 /HPF (0-1)
[2023-09-28] MEDS ORDERED: IBUP-1493 PO (20:20)
== END 2023-09-28 20:43 | disposition home or self-care (01) ==
LOC: EDH 17:00
DX: R10.9 Unspecified abdominal pain (principal); I10 Essential (primary) hypertension; E11.9 Type 2 diabetes mellitus without complications; J45.909 Unspecified asthma, uncomplicated; F17.200 Nicotine dependence, unspecified, uncomplicated; Z79.82 Long term (current) use of aspirin; Z79.899 Other long term (current) drug therapy; Z98.890 Other specified postprocedural states; Z88.2 Allergy status to sulfonamides; Z88.5 Allergy status to narcotic agent; Z88.8 Allergy status to other drugs, medicaments and biological substances
CPT/HCPCS: 99285; 74176; 96374; 96361; 96375; 82550; 84484; 80053; 83690; 85025; 83605; 81001; 36415; 93005; J3490; J7030; J1885; J2765

== ENCOUNTER → 2023-11-02 | Outpatient (CLI) | payer OTHER, MEDICARE ==
[~2023-11-02] MED LIST changes: +IBUP-1493 PO
[2023-11-02] MEDS: REGADENOSON 0.4 MG/5 ML PF SYG IVP ONE (14:49)
== END | disposition home or self-care (01) ==
LOC: SHCH 08:39
PROVIDERS: ATTEND Internal Medicine Cardiovascular Disease
DX: R07.9 Chest pain, unspecified (principal)
CPT/HCPCS: 78452; 93017; J2785; A9500 ×2; 96374

== ENCOUNTER 2023-12-13 06:25 | Emergency (ER) | payer OTHER, MEDICARE ==
[~2023-12-13] VITALS: Ht 149.9 cm; Wt 63.5 kg
[2023-12-13] MEDS: LACTATED RINGERS 1000ML 1,000 ML IV ONE (06:36)
[2023-12-13] MEDS: PROCHLORPERAZINE 10MG/2ML INJ IV ONE (06:36)
[2023-12-13] MEDS: DiphenhydrAMINE HCL 50 MG/ML VIAL IV ONE (06:36)
[2023-12-13 06:40] LABS: BASOPHILS # (AUTO) 0.07 K/uL (0.00-0.20); EOSINOPHILS % (AUTO) 1.4 % (0.0-8.0); HEMATOCRIT 38.6 % (36-48); IMMATURE GRANULOCYTE ABSOLUTE 0.01 K/uL (0-1); LYMPHOCYTES # (AUTO) 3.2 K/uL (1.0-4.8); LYMPHOCYTES % (AUTO) 45.1 % (21.0-51.0); MEAN CORPUSCULAR HEMOGLOBIN 31.4 pg (27.0-33.0); MEAN CORPUSCULAR HGB CONC 34.5 g/dL (32.0-36.0); MEAN CORPUSCULAR VOLUME 91.3 fL (79-99); MONOCYTES # (AUTO) 0.5 K/uL (0.1-1.0); MONOCYTES % (AUTO) 7.1 % (3.0-13.0); NEUTROPHILS # (AUTO) 3.2 K/uL (1.8-7.7); NEUTROPHILS % (AUTO) 45.3 % (40.0-77.0); PLATELET COUNT (AUTO) 278 K/uL (130-400); RED BLOOD CELL COUNT(AUTO) 4.23 MIL/uL (4.00-5.50); RED CELL DISTRIBUTION WIDTH 13.6 % (11.0-15.5); WHITE BLOOD COUNT (AUTO) 7.1 K/uL (4.8-10.8)
[2023-12-13 07:04] LABS: ALBUMIN 3.4 g/dL (3.5-5.0); BILIRUBIN,TOTAL 0.5 mg/dL (0.2-1.0); CREATININE 1.1 mg/dL (0.5-1.0); POTASSIUM 3.5 mmol/L (3.5-5.1); TOTAL PROTEIN, SERUM 6.8 g/dL (6.0-8.3)
[2023-12-13 08:59] LABS: APPEARANCE,URINE CLEAR (CLEAR); BILIRUBIN,URINE NEGATIVE (NEGATIVE); COLOR,URINE COLORLESS (YELLOW); GLUCOSE, URINE (UA) NEGATIVE (NEGATIVE); KETONES,URINE NEGATIVE (NEGATIVE); LEUKOCYTE ESTERASE ,URINE NEGATIVE Leu/uL (NEGATIVE); NITRATE,URINE NEGATIVE (NEGATIVE); OCCULT BLOOD,URINE NEGATIVE (NEGATIVE); PH,URINE 6.5 (5.0-8.0); PROTEIN,URINE NEGATIVE (NEGATIVE); UROBILINOGEN,URINE 0.2 mg/dL (0.2-1.0)
[2023-12-13 09:05] LABS: ADD UA MICROSCOPIC NO
[2023-12-13] MEDS: LORAZEPAM 2 MG/ML 1 ML VIAL IVP ONE (09:06)
[2023-12-13] MEDS: KETOROLAC 15MG/ML VIAL (15MG/ML) IV ONE (09:06)
[2023-12-13 11:02] VITALS: BP 160/72; PULSE 71; RESP 18; O2SAT 98
== END 2023-12-13 11:40 | disposition home or self-care (01) ==
LOC: EDH 06:25
DX: R51.9 Headache, unspecified (principal); E11.9 Type 2 diabetes mellitus without complications; E66.9 Obesity, unspecified; I10 Essential (primary) hypertension; F17.200 Nicotine dependence, unspecified, uncomplicated; J45.909 Unspecified asthma, uncomplicated; Z79.01 Long term (current) use of anticoagulants; Z79.82 Long term (current) use of aspirin; Z79.899 Other long term (current) drug therapy; Z88.5 Allergy status to narcotic agent
CPT/HCPCS: 99285; 96374; 96375; 70450; 96361; 83735; 84484; 80053; 85025; 81003; 36415; J7120; J1200; J0780; J2060; J1885

== ENCOUNTER → 2024-01-15 | Outpatient (CLI) | payer OTHER, MEDICARE ==
[2024-01-15 15:56] LABS: ALBUMIN 3.6 g/dL (3.5-5.0); BILIRUBIN,TOTAL 0.4 mg/dL (0.2-1.0); CREATININE 0.9 mg/dL (0.5-1.0); POTASSIUM 3.6 mmol/L (3.5-5.1)
== END | disposition home or self-care (01) ==
LOC: LAB 14:34
PROVIDERS: ATTEND Internal Medicine Cardiovascular Disease
DX: I25.10 Atherosclerotic heart disease of native coronary artery without angina pectoris (principal)
CPT/HCPCS: 36415; 80053

== ENCOUNTER → 2024-02-05 | Outpatient (CLI) | payer OTHER, MEDICARE ==
[~2024-02-05] MED LIST changes: +IOHEXOL 350 MG/ML 100ML INFUS..BTL IV ONE; +IOHEXOL-350 50ML VIAL IV ONE
== END | disposition home or self-care (01) ==
LOC: RAH 09:00 → EDSTATUS 10:30
PROVIDERS: ATTEND Internal Medicine Cardiovascular Disease
DX: I71.02 Dissection of abdominal aorta (principal); I25.10 Atherosclerotic heart disease of native coronary artery without angina pectoris; I70.8 Atherosclerosis of other arteries; Z90.49 Acquired absence of other specified parts of digestive tract
CPT/HCPCS: 75635; Q9967 ×2

== ENCOUNTER 2024-03-18 21:56 | Observation (INO) | payer OTHER, MEDICARE ==
[~2024-03-18] VITALS: Ht 149.9 cm; Wt 62.3 kg
[~2024-03-18 21:56] MED LIST changes: -IOHEXOL 350 MG/ML 100ML INFUS..BTL IV ONE; -IOHEXOL-350 50ML VIAL IV ONE
[2024-03-18] MEDS: ASPIRIN 81MG CHEW TAB PO ONE (22:30)
[2024-03-18] MEDS: NITROGLYCERIN 1GM OINT 1 INCH/1GM TD ONE (22:31)
[2024-03-18 22:34] LABS: BASOPHILS # (AUTO) 0.05 K/uL (0.00-0.20); BASOPHILS % (AUTO) 0.5 % (0.0-5.0); EOSINOPHILS # (AUTO) 0.09 K/uL (0.00-0.70); EOSINOPHILS % (AUTO) 0.9 % (0.0-8.0); HEMATOCRIT 37.9 % (36-48); IMMATURE GRANULOCYTE ABSOLUTE 0.03 K/uL (0-1); LYMPHOCYTES % (AUTO) 41.5 % (21.0-51.0); MEAN CORPUSCULAR HEMOGLOBIN 31.3 pg (27.0-33.0); MONOCYTES # (AUTO) 0.7 K/uL (0.1-1.0); MONOCYTES % (AUTO) 7.4 % (3.0-13.0); NEUTROPHILS # (AUTO) 4.8 K/uL (1.8-7.7); NEUTROPHILS % (AUTO) 49.4 % (40.0-77.0); PLATELET COUNT (AUTO) 310 K/uL (130-400); RED BLOOD CELL COUNT(AUTO) 4.12 MIL/uL (4.00-5.50); RED CELL DISTRIBUTION WIDTH 14.2 % (11.0-15.5); WHITE BLOOD COUNT (AUTO) 9.7 K/uL (4.8-10.8)
[2024-03-18 22:38] LABS: POTASSIUM 3.9 mmol/L (3.5-5.1)
[2024-03-18 22:51] LABS: B-TYPE NATRIURETIC PEPTIDE 148 pg/mL (0-100)
[2024-03-19] VITALS (11 sets, daily range): BP systolic 145–186; BP diastolic 67–96; PULSE 68–89; RESP 17–20; O2SAT 93–99
[2024-03-19] MEDS: BUDESONIDE 0.5 MG/2 ML INH IH ONE (00:07)
[2024-03-19] MEDS: BUDESONIDE 0.5 MG/2 ML INH IH SCH ×2 (00:07→06:57)
[2024-03-19] MEDS: IPRATROPIUM/ALBUTEROL SULFATE 3 ML SOLUTION IH ONE (00:07)
[2024-03-19] MEDS: FUROSEMIDE 40MG VIAL IV ONE (00:37)
[2024-03-19 01:25] LABS: APPEARANCE,URINE CLEAR (CLEAR); BILIRUBIN,URINE NEGATIVE (NEGATIVE); COLOR,URINE COLORLESS (YELLOW); GLUCOSE, URINE (UA) NEGATIVE (NEGATIVE); KETONES,URINE NEGATIVE (NEGATIVE); LEUKOCYTE ESTERASE ,URINE 75 Leu/uL (NEGATIVE); NITRATE,URINE NEGATIVE (NEGATIVE); OCCULT BLOOD,URINE NEGATIVE (NEGATIVE); PROTEIN,URINE NEGATIVE (NEGATIVE); UROBILINOGEN,URINE 0.2 mg/dL (0.2-1.0)
[2024-03-19 01:26] LABS: ADD UA MICROSCOPIC YES
[2024-03-19] MEDS ORDERED: MORPHINE 4 MG SYG IVP ONE (01:30)
[2024-03-19 01:44] LABS: BACTERIA,URINE RARE /HPF (None Seen); MUCUS,URINE RARE LPF (None Seen); RBC,URINE 0-1 /HPF (0-1); SQUAMOUS EPITHELIAL CELL,UR FEW /HPF (0-2)
[2024-03-19] MEDS: PHARMACY COMMUNICATION MISC SCH (02:00)
[2024-03-19] MEDS ORDERED: ACETAMINOPHEN 650 MG SUPPOSITORY RC PRN (02:30)
[2024-03-19] MEDS ORDERED: HYDROCODONE/ACETAMINOPHEN 5/325 MG TAB PO PRN (02:30)
[2024-03-19] MEDS: HYDRALAZINE 20MG/ML VIAL IV ONE (02:49)
[2024-03-19] MEDS: SOLU-MEDROL 125MG VIAL IVP ONE (02:49)
[2024-03-19] MEDS: IPRATROPIUM/ALBUTEROL SULFATE 3 ML SOLUTION IH SCH (06:57)
[2024-03-19] MEDS: INSULIN HUMULIN R 100 UNIT/ML 3ML SQ SCH (07:20)
[2024-03-19] MEDS ORDERED: ISOS60TA77 PO (07:23)
[2024-03-19] MEDS ORDERED: ROSU40TA70 PO (07:23)
[2024-03-19] MEDS: PANTOPRAZOLE 40 MG TAB DR PO SCH (08:32)
[2024-03-19] MEDS: POLYETHYLENE GLYCOL 3350 17 GM POWD.PACK PO SCH (08:32)
[2024-03-19] MEDS: SOLU-MEDROL 40MG VIAL IVP SCH (08:32)
[2024-03-19] MEDS: ASCORBIC ACID 500 MG TAB PO SCH (08:32)
[2024-03-19] MEDS: ENOXAPARIN SODIUM 40 MG/0.4 ML SYRINGE SQ SCH (08:33)
[2024-03-19] MEDS: ACETAMINOPHEN 325 MG TAB PO PRN (13:02)
[2024-03-19 14:06] LABS: INFLUENZA TYPE A Negative For Type A (NEGATIVE); INFLUENZA TYPE B Negative For Type B (NEGATIVE)
[2024-03-19 14:07] LABS: COVID19 (SARS ANTIGEN RAPID) PRESUMPTIVE NEGATIVE (NEGATIVE)
[2024-03-19] MEDS: DOXYCYCLINE 100MG+NS 250ML 250 ML IV SCH (17:40)
[2024-03-19] MEDS: HYDRALAZINE 20MG/ML VIAL IV PRN (20:01)
[2024-03-20] VITALS (10 sets, daily range): BP systolic 153–177; BP diastolic 54–71; PULSE 68–79; RESP 16–18; O2SAT 96–98
[2024-03-20] MEDS: LABETALOL 20MG SYG IV PRN (03:53)
[2024-03-20 05:26] LABS: HEMATOCRIT 41.6 % (36-48); IMMATURE GRANULOCYTE ABSOLUTE 0.05 K/uL (0-1); LYMPHOCYTES # (AUTO) 1.4 K/uL (1.0-4.8); LYMPHOCYTES % (AUTO) 12.5 % (21.0-51.0); MEAN CORPUSCULAR HEMOGLOBIN 31.1 pg (27.0-33.0); MEAN CORPUSCULAR HGB CONC 33.4 g/dL (32.0-36.0); MEAN CORPUSCULAR VOLUME 93.1 fL (79-99); MONOCYTES # (AUTO) 0.2 K/uL (0.1-1.0); MONOCYTES % (AUTO) 2.1 % (3.0-13.0); NEUTROPHILS # (AUTO) 9.3 K/uL (1.8-7.7); NEUTROPHILS % (AUTO) 84.9 % (40.0-77.0); PLATELET COUNT (AUTO) 304 K/uL (130-400); RED BLOOD CELL COUNT(AUTO) 4.47 MIL/uL (4.00-5.50); RED CELL DISTRIBUTION WIDTH 14.3 % (11.0-15.5)
[2024-03-20 05:40] LABS: CREATININE 1.2 mg/dL (0.5-1.0); PHOSPHORUS 3.1 mg/dL (2.5-4.9); POTASSIUM 3.6 mmol/L (3.5-5.1)
[2024-03-20] MEDS ORDERED: PRED20TA3 PO (16:50)
[2024-03-20] MEDS ORDERED: MONT-39 PO (16:50)
[2024-03-20] MEDS ORDERED: ALBU18HF7 IH (16:50)
[2024-03-20] MEDS ORDERED: ATORVASTATIN 40 MG TABLET PO SCH (21:00)
[2024-03-20] MEDS ORDERED: NON-FORMULARY MEDICATION 1 EACH (Rosuvastatin Calcium 40 MG) PO SCH (21:00)
[2024-03-20] MEDS ORDERED: CARVEDILOL 12.5 MG TABLET PO SCH (21:00)
[2024-03-21] MEDS ORDERED: ASPIRIN 81MG CHEW TAB PO SCH (09:00)
[2024-03-21] MEDS ORDERED: NON-FORMULARY MEDICATION 1 EACH (Olmesartan Medoxomil 40 MG) PO SCH (09:00)
[2024-03-21] MEDS ORDERED: LOSARTAN 100 MG TABLET PO SCH (09:00)
[2024-03-21] MEDS ORDERED: ISOSORBIDE MONO 60MG SR TAB PO SCH (09:00)
== END 2024-03-20 19:57 | disposition home or self-care (01) ==
LOC: EDH 21:56 → EDHIP 03-19 02:27 → 4DH 03-19 06:29
PROVIDERS: ADMIT Internal Medicine Critical Care Medicine; ATTEND Internal Medicine Critical Care Medicine
DX: J44.1 Chronic obstructive pulmonary disease with (acute) exacerbation (principal); I10 Essential (primary) hypertension; E11.9 Type 2 diabetes mellitus without complications; E78.5 Hyperlipidemia, unspecified; I16.1 Hypertensive emergency; M79.89 Other specified soft tissue disorders; I25.10 Atherosclerotic heart disease of native coronary artery without angina pectoris; K21.9 Gastro-esophageal reflux disease without esophagitis; Z20.822 Contact with and (suspected) exposure to COVID-19; Z79.899 Other long term (current) drug therapy; Z98.890 Other specified postprocedural states
CPT/HCPCS: 99285; 82550; 84484 ×3; 80048 ×2; 83880; 85025 ×2; 71045; 93005; 96376 ×2; 96372 ×2; 96365; 96366 ×2; 96375 ×2; 87086 ×2; 87186; 87804 ×2; 82948 ×7; 87426; 81001; 36415 ×2; 71250; 83735; 84100; 94664; G0378 ×42; J2919 ×4; J0360 ×3; J3490 ×3; J1650 ×2; J1940; J1815 ×3; 94640

== ENCOUNTER 2024-07-03 12:04 | Emergency (ER) | payer OTHER, MEDICARE ==
[~2024-07-03] VITALS: Ht 149.9 cm; Wt 61.2 kg
[~2024-07-03 12:04] MED LIST changes: +ALBU18HF7 IH; +HYDR-4060 PO; -IBUP-1493 PO; +ISOS60TA77 PO; +MONT-39 PO; +PANT40TA PO; +PRED20TA3 PO; -ROSU20TA73 PO; +ROSU40TA88 PO
[2024-07-03 12:44] LABS: BASOPHILS # (AUTO) 0.05 K/uL (0.00-0.20); BASOPHILS % (AUTO) 0.6 % (0.0-5.0); EOSINOPHILS # (AUTO) 0.08 K/uL (0.00-0.70); HEMATOCRIT 41.8 % (36-48); IMMATURE GRANULOCYTE ABSOLUTE 0.02 K/uL (0-1); LYMPHOCYTES % (AUTO) 36.6 % (21.0-51.0); MEAN CORPUSCULAR HEMOGLOBIN 31.4 pg (27.0-33.0); MEAN CORPUSCULAR VOLUME 92.5 fL (79-99); MONOCYTES # (AUTO) 0.5 K/uL (0.1-1.0); MONOCYTES % (AUTO) 6.3 % (3.0-13.0); NEUTROPHILS # (AUTO) 4.5 K/uL (1.8-7.7); NEUTROPHILS % (AUTO) 55.3 % (40.0-77.0); PLATELET COUNT (AUTO) 269 K/uL (130-400); RED BLOOD CELL COUNT(AUTO) 4.52 MIL/uL (4.00-5.50); RED CELL DISTRIBUTION WIDTH 13.5 % (11.0-15.5); WHITE BLOOD COUNT (AUTO) 8.1 K/uL (4.8-10.8)
--- NOTE | 2024-07-03 12:47 | ERN ---
General Chief Complaint: Multiple Complaints Stated Complaint: GBW,HEADACHE,AND BILATERAL EYE SWELLING Time Seen by MD: 12:10 History of Present Illness Initial Comments 78-year-old female brought in by EMS from home for right-sided face pain and ice swelling. Patient reports she has had some bilateral eye swelling for the last few days. The right side had some discharge. She has developed a headache and dizziness since. No fevers, vomiting, vision changes, I have all pain, earache or sore throat. No other symptoms. She go to her PCP and was given prescription for azithromycin and Polytrim drops. She has been using that. She thinks she may have gotten makeup in her eye causing discomfort. Medical history: CKD, CAD, DLD, arthritis, GERD PCP: Jaleesa Allergies: Coded Allergies: codeine (Verified Allergy, Severe, 05/01/15) morphine (Verified Allergy, Severe, FACIAL & HAND SWELLING, 05/01/15) hydrocodone (Unverified Allergy, Unknown, 09/10/21) tramadol (Unverified Allergy, Unknown, 11/14/21) Home Meds Active Scripts Hydrocodone/Acetaminophen (Hydrocodon-Acetaminophen 5-325) 5 Mg-325 Mg Tablet, 1 EACH PO TID for pain, #16 TAB 0 Refills Prov:GA OSORIO MD 04/01/24 Pantoprazole Sodium (Protonix) 40 Mg Tablet.dr, 40 MG PO DAILY for 30 Days, #30 TAB Prov:GA OSORIO MD 04/01/24 Montelukast Sodium (Montelukast Sodium) 10 Mg Tablet, 10 MG PO DAILYBKFST for 14 Days, #14 TAB Prov:SOSA MORRELL 03/20/24 Albuterol Sulfate (Ventolin Hfa) 90 Mcg Hfa.aer.ad, 18 GM IH Q6HPRN PRN for SHORTNESS OF BREATH, #1 INHALER Prov:SOSA MORRELL 03/20/24 Prednisone (Prednisone) 20 Mg Tablet, 40 MG PO DAILYBKFST for 5 Days, #10 TAB Prov:SOSA MORRELL 03/20/24 Acetaminophen (Tylenol) 500 Mg Tab, 500 MG PO Q6HPRN PRN for PAIN, #30 TAB 0 Refills Prov:CHRISTINA TANNER MD 05/11/22 Reported Medications Isosorbide Mononitrate (Isosorbide Mononitrate ER) 60 Mg Tab.er.24h, 60 MG PO DAILY, TAB 03/19/24 Rosuvastatin Calcium (Rosuvastatin Calcium) 40 Mg Tablet, 40 MG PO HS, TAB 03/19/24 Rivaroxaban (Xarelto) 2.5 Mg Tablet, 2.5 MG PO BID, TAB 09/08/23 Aspirin (Aspirin) 81 Mg Tab.chew, 81 MG PO DAILY, TAB.CHEW 09/10/21 Olmesartan Medoxomil (Olmesartan Medoxomil) 20 Mg Tablet, 40 MG PO DAILY, TAB 06/28/20 Carvedilol (Carvedilol) 12.5 Mg Tablet, 12.5 MG PO BID, TAB 06/28/20 Pantoprazole Sodium (Pantoprazole Sodium) 40 Mg Tablet.dr, 40 MG PO DAILY, TAB 03/31/17 Past Medical History Past Medical History: Asthma, COPD, Diabetes-Type II, High Cholesterol, Heart Disease, Hypertension Medical History Other: BLOOD CLOTS LOWER EXT, obesity Past Surgical History: CABG, Other Surgical History Other: FEM POP LEFT LEG Family History Family History: CAD, DM, HTN Social History Social History: Smokers, Lives with family Female( History) History: Not Applicable ROS Dictation CONSTITUTIONAL: No chills, no fever, no weakness, no diaphoresis, no malaise. HEAD/FACE: Right eye swelling and headache EENT: No eye pain, no blurred vision, no tearing, no double vision, no ear pain, no ear discharge, no nose pain, no nasal congestion, no throat pain, no throat swelling, no mouth pain. RESPIRATORY: No cough, no orthopnea, no SOB, no stridor, no wheezing. CARDIOVASCULAR: No chest pain, no edema, no palpitations, no syncope. GASTROINTESTINAL/ABDOMINAL: No abdominal pain, no constipation, no diarrhea, no nausea, no vomiting. GENITOURINARY: No abnormal discharge, no dysuria, no frequent urination, no hematuria. No complaints of pain in the genitals. MUSCULOSKELETAL: No back pain, no gout, no joint pain, no joint swelling, no muscle pain, no muscle stiffness, no neck pain. INTEGUMENTARY: No change in color, no change in hair/nails, no dryness, no lesion, no lumps, no rash. NEUROLOGICAL/PSYCH: No anxiety, not depressed, no emotional problem, no headache, no numbness, no pre-existing deficit, no history of seizures, no tremors, no weakness. HEMATOLOGIC/LYMPHATIC: Not anemic, no history of blood clots, no apparent bleeding, no bruising, glands not swollen. All Systems Negative, Except as Noted. Physical Exam Physical Exam Dictation VITAL SIGNS: Reviewed. GENERAL APPEARANCE: Alert, oriented x3, no acute distress. HEAD AND FACE: Non-traumatic. EYES: PERRL, pink conjunctivas, eyelid no trauma, anterior chamber clear. Right eye swelling and discharge EARS: Pinnas intact and no signs of trauma or erythema. Ear canals clear and no discharge. TMs no erythema. NOSE: No discharge, no bleeding. OROPHARYNX: Mouth normal, teeth no caries, tongue pink. Pharynx clear, no erythema. Tonsils no exudates, no abscesses noted. Mucous membrane moist. NECK: Supple, non-tender, no thyromegaly, no masses, no JVD, no bruits. BREAST: Deferred. CHEST: No tenderness, no crepitus, no paradoxical movement, no retractions. LUNGS: Clear, well-ventilated, symmetric, no rales, no wheezing, no rhonchi, no stridor, good breath sounds bilaterally. HEART: Regular rate, regular rhythm, no murmur, no gallops. VASCULAR: No peripheral edema. ABDOMEN: Soft, positive bowel sounds, nondistended, no guarding, nontender, no rebound, no masses no hepatomegaly, no splenomegaly, no Johnson's sign, no hernias. RECTAL: Deferred. GENITAL: Deferred. NEUROLOGICAL: Normal speech, gross motor function intact, gross sensory function intact. MUSCULOSKELETAL: Neck nontender, full range of motion, back nontender, full range of motion. EXTREMITIES: Nontender, full range of motion. SKIN: Color pink, dry, no turgor, no rash, no lacerations, no abrasions, no contusions. LYMPHATICS: Deferred. Results Laboratory and Microbiology Lab and Micro Result Laboratory Tests Test 07/03/24 12:39 07/03/24 12:59 07/03/24 13:57 White Blood Count 8.1 K/uL (4.8-10.8) Red Blood Count 4.52 MIL/uL (4.00-5.50) Hemoglobin 14.2 g/dL (12.0-16.0) Hematocrit 41.8 % (36-48) Mean Corpuscular Volume 92.5 fL (79-99) Mean Corpuscular Hemoglobin 31.4 pg (27.0-33.0) Mean Corpuscular Hemoglobin Concent 34.0 g/dL (32.0-36.0) Red Cell Distribution Width 13.5 % (11.0-15.5) Platelet Count 269 K/uL (130-400) Mean Platelet Volume 9.2 fL (7.5-10.5) Immature Granulocyte % (Auto) 0.2 % (0-1) Neutrophils (%) (Auto) 55.3 % (40.0-77.0) Lymphocytes (%) (Auto) 36.6 % (21.0-51.0) Monocytes (%) (Auto) 6.3 % (3.0-13.0) Eosinophils (%) (Auto) 1.0 % (0.0-8.0) Basophils (%) (Auto) 0.6 % (0.0-5.0) Neutrophils # (Auto) 4.5 K/uL (1.8-7.7) Lymphocytes # (Auto) 3.0 K/uL (1.0-4.8) Monocytes # (Auto) 0.5 K/uL (0.1-1.0) Eosinophils # (Auto) 0.08 K/uL (0.00-0.70) Basophils # (Auto) 0.05 K/uL (0.00-0.20) Absolute Immature Granulocyte (auto 0.02 K/uL (0-1) Nucleated Red Blood Cells 0.0 % (0.0-0.19) Erythrocyte Sedimentation Rate 10 MM/HR (0-30) Sodium Level 140 mmol/L (136-145) Potassium Level 3.8 mmol/L (3.5-5.1) Chloride Level 106 mmol/L (101-111) Carbon Dioxide Level 33 mmol/L (21-32) H Blood Urea Nitrogen 9 mg/dL (7-18) Creatinine 0.9 mg/dL (0.5-1.0) Glomerular Filtration Rate Calc 65 mL/min (>90) Random Glucose 100 mg/dL (70-105) Total Calcium 9.2 mg/dL (8.5-10.1) Total Creatine Kinase 42 U/L (21-232) # Troponin I High Sensitivity 6.3 ng/L (4-50) C-Reactive Protein, Quantitative < 0.50 mg/L (0.5-3.0) L Urine Color LIGHT-YELLOW (YELLOW) Urine Appearance CLEAR (CLEAR) Urine pH 6.0 (5.0-8.0) Urine Specific [place] 1.005 (1.001-1.031) Urine Protein NEGATIVE mg/dL (NEGATIVE) Urine Glucose (UA) NEGATIVE mg/dL (NEGATIVE) Urine Ketones NEGATIVE mg/dL (NEGATIVE) Urine Occult Blood NEGATIVE (NEGATIVE) Urine Nitrate NEGATIVE (NEGATIVE) Urine Bilirubin NEGATIVE mg/dL (NEGATIVE) Urine Urobilinogen 0.2 mg/dL (0.2-1.0) Urine Leukocyte Esterase NEGATIVE Dewayne/uL Influenza Type A Antigen Negative For Type A Influenza Type B Antigen Negative For Type B SARS-CoV-2 Antigen (Rapid) PRESUMPTIVE NEGATIVE MDM CC: Right eye pain discharge right-sided headache Historian: Patient Comorbidities: Advanced age, CAD, CHF, COPD, HTN, DLD Limitations by social determinants of health: None Vital signs: Mild hypertension 142/61, otherwise stable in the ER EKG: NSR rate 60 normal axis good R-wave progression intervals stable no STEMI. Independently interpreted by me. labs ( independently ordered and reviewed by me): CBC normal, BMP normal, ESR & CRP normal. CT head without contrast (independently interpreted by me): no acute fractures, bleeding, or major abnormalities. Treatment in the ER: Patient had an elevated blood pressure reading, received 20 mg of hydralazine. She received 15 mg of Toradol. 1 L normal saline. On re-evaluation patient is stable. Stable vital signs, stable lab work. Neuro exam is normal. The eye exam shows some swelling to the upper eyelid but otherwise unremarkable. Patient is already taking azithromycin and she is Polytrim eyedrops. This appears appropriate at this time. I do not see any life threats or concerns based on the patient's workup. We will DC to PCP follow up. REASON: headache ORDERING PHYSICIAN: DAVID ULNA DO PROCEDURE: HEAD WO - CT HEAD/BRAIN W/O CONTRAST CT HEAD/BRAIN W/O CONTRAST INDICATION: headache TECHNIQUE: CT HEAD/BRAIN W/O CONTRAST. CT was performed with one or more of the following dose reduction techniques: Automated exposure control, adjustment of the mA and/or kV according to the patient's size, or use of the iterative reconstruction technique. Comparison: 12/13/2023 FINDINGS: Cerebral atrophy seen. Nonspecific periventricular and subcortical white matters changes are noted likely representing small vessel ischemic changes. No midline shift or herniation. No extra axial collection. No acute intracranial bleed. The visualized paranasal sinuses and mastoid air cells are normally aerated. IMPRESSION: Diffuse atrophy. No acute intracranial bleed is seen. Nonspecific white matter changes ED Course Orders Procedure Category Date Status Time Cardiac Panel LAB 07/03/24 Complete 12:32 Cbc With Differential LAB 07/03/24 Complete 12:32 Basic Metabolic Panel LAB 07/03/24 Complete 12:32 Urinalysis Profile LAB 07/03/24 Complete 12:32 0.9%Nacl 1000ml (Ns PHA 07/03/24 Complete 1000ml) 13:00 Covid19 (Sars Antigen LAB 07/03/24 Complete Rapid) 12:32 Influenza Type A & B, LAB 07/03/24 Complete Rapid 12:32 Ct Head/Brain W/O CT 07/03/24 Resulted Contrast 12:32 Crp Quantitative LAB 07/03/24 Complete 12:32 Erythrocyte LAB 07/03/24 Complete Sedimentation Rate 12:32 Ketorolac PHA 07/03/24 Complete Tromethamine 15mg/Ml 13:00 12 Lead Ekg Tracing- EKG 07/03/24 Logged Technical 12:38 Hydralazine 20mg Inj PHA 07/03/24 Complete (Apresoline 20mg In 14:00 Current Medications Medications (Trade) Dose Ordered Sig/Pastora Route PRN Reason Start Time Stop Time Status Last Admin Dose Admin Hydralazine HCl (APRESOLine 20MG INJ) 10 mg ONCE ONCE IV 07/03/24 14:00 07/03/24 14:01 DC 07/03/24 13:55 Ketorolac Tromethamine (toRADol) 15 mg ONCE ONCE IV 07/03/24 13:00 07/03/24 13:01 DC 07/03/24 13:04 Sodium Chloride 1,000 ml @ 0 mls/hr ONCE ONCE IV 07/03/24 13:00 07/03/24 13:01 DC 07/03/24 13:04 Vital Signs Date Time Temp Pulse Resp B/P (MAP) Pulse Ox O2 Delivery O2 Flow Rate FiO2 07/03/24 13:41 100.9 62 12 213/76 99 Room Air* 0 21 07/03/24 12:39 100.9 81 12 142/61 97 Room Air* 0 21 07/03/24 12:10 97.9 76 20 181/125 99 Room Air DX & DISP Disposition: Discharge Departure Impression: Primary Impression: Periorbital cellulitis of right eye Condition: Stable Additional Instructions: Your symptoms are consistent with periorbital cellulitis. Continue taking the azithromycin antibiotic that you were prescribed. Continue taking the Polytrim eye drops that you were prescribed. Your lab work (CBC, BMP, CRP, ESR) is stable. The CT scan of your head does not show any acute abnormalities. You can take [id number] Tylenol or ibuprofen as needed for pain or discomfort. Please follow up with your primary doctor next week for re-evaluation. Return to the emergency department as needed. Referrals: LUIS MILLER DO (PCP) DAVID LUNA DO Jul 03, 2024 12:47
[2024-07-03 13:03] LABS: CARBON DIOXIDE 33 mmol/L (21-32); CHLORIDE 106 mmol/L (101-111); CREATININE 0.9 mg/dL (0.5-1.0); GLOMERULAR FILTR. RATE CALC 65 mL/min (>90); GLUCOSE,RANDOM 100 mg/dL (70-105); POTASSIUM 3.8 mmol/L (3.5-5.1); SODIUM SERUM 140 mmol/L (136-145); UREA NITROGEN, BLOOD 9 mg/dL (7-18)
[2024-07-03] MEDS: ketOROlac 15MG/ML VIAL (15MG/ML) IV ONE (13:04)
[2024-07-03] MEDS: 0.9%NACL 1000ML 1,000 ML IV ONE (13:04)
[2024-07-03 13:09] LABS: APPEARANCE,URINE CLEAR (CLEAR); BILIRUBIN,URINE NEGATIVE (NEGATIVE); COLOR,URINE LIGHT-YELLOW (YELLOW); GLUCOSE, URINE (UA) NEGATIVE (NEGATIVE); KETONES,URINE NEGATIVE (NEGATIVE); LEUKOCYTE ESTERASE ,URINE NEGATIVE Leu/uL (NEGATIVE); NITRATE,URINE NEGATIVE (NEGATIVE); OCCULT BLOOD,URINE NEGATIVE (NEGATIVE); PROTEIN,URINE NEGATIVE (NEGATIVE); UROBILINOGEN,URINE 0.2 mg/dL (0.2-1.0)
[2024-07-03 13:10] LABS: ADD UA MICROSCOPIC NO
[2024-07-03 13:13] LABS: CREATINE KINASE, TOTAL 42 U/L (21-232)
--- NOTE | 2024-07-03 13:41 | HMCIMG ---
CT HEAD/BRAIN W/O CONTRAST INDICATION: headache TECHNIQUE: CT HEAD/BRAIN W/O CONTRAST. CT was performed with one or more of the following dose reduction techniques: Automated exposure control, adjustment of the mA and/or kV according to the patient's size, or use of the iterative reconstruction technique. Comparison: 12/13/2023 FINDINGS: Cerebral atrophy seen. Nonspecific periventricular and subcortical white matters changes are noted likely representing small vessel ischemic changes. No midline shift or herniation. No extra axial collection. No acute intracranial bleed. The visualized paranasal sinuses and mastoid air cells are normally aerated. IMPRESSION: Diffuse atrophy. No acute intracranial bleed is seen. Nonspecific white matter changes
[2024-07-03] MEDS: hydrALAZine 20MG/ML VIAL IV ONE (13:55)
[2024-07-03 14:00] LABS: ERYTHROCYTE SEDIMENTATION RATE 10 MM/HR (0-30)
[2024-07-03 14:20] LABS: COVID19 (SARS ANTIGEN RAPID) PRESUMPTIVE NEGATIVE (NEGATIVE); INFLUENZA TYPE A Negative For Type A (NEGATIVE); INFLUENZA TYPE B Negative For Type B (NEGATIVE)
[2024-07-03 14:59] VITALS: BP 177/53; PULSE 81; RESP 12; TEMP 99; O2SAT 99
--- NOTE | 2024-07-04 07:37 | EKG ---
[facility] Test Date: 2024-07-03 Test Time: 12:33:26 Pat Name: CHUY GRANADOS Department: ED Room: Gender: F Physiotherapy Aide: [id number] : 1945 Requested By: DAVID LUNA Order Number: [id number] Reading MD: Maria Elena Murillo Measurements Intervals [place] Rate: 60 P: 52 TN: 156 QRS: 0 QRSD: 80 T: 18 QT: 435 QTc: 437 Interpretive Statements Sinus rhythm Compared to ECG 04/01/2024 20:59:10 No significant changes Electronically Signed On 07-04-2024 10:49:44 WEIR FISHERMAN by Maria Elena Murillo Please click the below link to view image of tracing.
== END 2024-07-03 15:30 | disposition home or self-care (01) ==
LOC: EDH 12:04
DX: L03.213 Periorbital cellulitis (principal); I12.9 Hypertensive chronic kidney disease with stage 1 through stage 4 chronic kidney disease, or unspecified chronic kidney disease; E11.22 Type 2 diabetes mellitus with diabetic chronic kidney disease; N18.9 Chronic kidney disease, unspecified; E66.9 Obesity, unspecified; E78.00 Pure hypercholesterolemia, unspecified; K21.9 Gastro-esophageal reflux disease without esophagitis; F17.200 Nicotine dependence, unspecified, uncomplicated; R42 Dizziness and giddiness; Z79.01 Long term (current) use of anticoagulants; Z79.82 Long term (current) use of aspirin; Z79.899 Other long term (current) drug therapy; Z88.5 Allergy status to narcotic agent; Z95.1 Presence of aortocoronary bypass graft; Z20.822 Contact with and (suspected) exposure to COVID-19
CPT/HCPCS: 99285; 96374; 70450; 96361; 96375; 87426; 82550; 84484; 80048; 85025; 85651; 87804 ×2; 86140; 81003; 36415; 93005; J7030; J0360; J1885

== ENCOUNTER → 2024-08-06 | Outpatient (CLI) | payer OTHER, MEDICARE ==
--- NOTE | 2024-08-08 07:47 | HMCSR ---
APPROVED REPORT Indications q21.1 Renal Artery Doppler Origin (R) 158.5/28.4 cm/secOrigin (L) 204.4/37.7 cm/sec Proximal (R) 160.9/37.9 cm/secProximal (L) 335.6/39.2 cm/sec Mid (R) 113.1/25.8 cm/secMid (L) 265.7/30.8 cm/sec Distal (R) 93.3/25.8 cm/secDistal (L) 73.4/17.7 cm/sec Renal/Aorta Ratio (R) 1.77Renal Aorta Ratio (L) 3.68 Resistive Index (R) 0.68Resistive Index (L) 0.67 Segmental A. (R) 18.3/5.8 cm/secLt. Segmental A. (L) 23.5/7.7 cm/sec Renal Measurements Kidney Size (R) 10.3x5.1x5.3 cmKidney Size (L)8.6x5.4x5.3 cm Aortic Doppler VelocityWaveform Proximal Aorta 91.1 cm/sec Technologist Impression Evidence of left renal artery stenosis >80%, with renal/aorta ratio >3.5 Left kidney appears abnormal in shape and size. Right renal artery ratio appears within normal limits. Right kidney appears normal in shape and size. Conclusion As above. Conclusion As above.
== END | disposition home or self-care (01) ==
LOC: SHCH 07:37
PROVIDERS: ATTEND Internal Medicine Cardiovascular Disease
DX: I70.1 Atherosclerosis of renal artery (principal); Q21.10 Atrial septal defect, unspecified; I10 Essential (primary) hypertension
CPT/HCPCS: 93975

== ENCOUNTER 2024-08-28 01:29 | Emergency (ER) | payer OTHER, MEDICARE ==
[~2024-08-28] VITALS: Ht 149.9 cm; Wt 59.0 kg
[2024-08-28 01:34] VITALS: TEMP 97.9
[2024-08-28] MEDS: hydrALAZine 20MG/ML VIAL IV ONE (02:20)
[2024-08-28 02:35] LABS: BASOPHILS # (AUTO) 0.05 K/uL (0.00-0.20); BASOPHILS % (AUTO) 0.7 % (0.0-5.0); EOSINOPHILS # (AUTO) 0.12 K/uL (0.00-0.70); EOSINOPHILS % (AUTO) 1.7 % (0.0-8.0); HEMATOCRIT 38.7 % (36-48); IMMATURE GRANULOCYTE ABSOLUTE 0.01 K/uL (0-1); LYMPHOCYTES # (AUTO) 3.5 K/uL (1.0-4.8); LYMPHOCYTES % (AUTO) 48.9 % (21.0-51.0); MEAN CORPUSCULAR HEMOGLOBIN 31.4 pg (27.0-33.0); MEAN CORPUSCULAR HGB CONC 32.8 g/dL (32.0-36.0); MEAN CORPUSCULAR VOLUME 95.8 fL (79-99); MONOCYTES # (AUTO) 0.5 K/uL (0.1-1.0); MONOCYTES % (AUTO) 6.4 % (3.0-13.0); NEUTROPHILS % (AUTO) 42.2 % (40.0-77.0); PLATELET COUNT (AUTO) 232 K/uL (130-400); RED BLOOD CELL COUNT(AUTO) 4.04 MIL/uL (4.00-5.50); RED CELL DISTRIBUTION WIDTH 14.1 % (11.0-15.5); WHITE BLOOD COUNT (AUTO) 7.1 K/uL (4.8-10.8)
[2024-08-28 02:47] LABS: CREATININE 0.9 mg/dL (0.5-1.0); POTASSIUM 3.7 mmol/L (3.5-5.1)
[2024-08-28 03:06] LABS: B-TYPE NATRIURETIC PEPTIDE 76 pg/mL (0-100)
[2024-08-28 03:08] LABS: APPEARANCE,URINE CLEAR (CLEAR); BILIRUBIN,URINE NEGATIVE (NEGATIVE); COLOR,URINE COLORLESS (YELLOW); GLUCOSE, URINE (UA) NEGATIVE (NEGATIVE); KETONES,URINE NEGATIVE (NEGATIVE); LEUKOCYTE ESTERASE ,URINE NEGATIVE Leu/uL (NEGATIVE); NITRATE,URINE NEGATIVE (NEGATIVE); OCCULT BLOOD,URINE NEGATIVE (NEGATIVE); PROTEIN,URINE NEGATIVE (NEGATIVE); UROBILINOGEN,URINE 0.2 mg/dL (0.2-1.0)
[2024-08-28 03:11] LABS: ADD UA MICROSCOPIC NO
--- NOTE | 2024-08-28 03:28 | ERN ---
ED Note History of Present Illness Stated Complaint: ELEVATED BP X 3 DAYS, H/A, DIZZINESS TODAY Chief Complaint: Hypertension Time Seen by MD: 02:13 Dictation: This is a 78-year-old female who presented to the emergency room with complaints of increased blood pressure for 3 days. Apparently she has been experiencing headache and dizziness and pain behind her eyes. She could not sleep tonight and checked her blood pressure and it was 220 systolic her daughter encouraged her to come to the hospital for evaluation as she was at a risk for a stroke. Headache is diffuse and dizziness only after the blood pressure goes up she has had similar episodes in the past. No history of any vision loss facial droop slurred speech or weakness of extremities Temperature 97.8 pulse 82 respirations 16 blood pressure 198 through 207 systolic and 90-106 diastolic with a pulse oximetry of 100% on room air Her chronic medical problems include coronary artery disease status post CABG, COPD, diabetes mellitus, asthma, hyperlipidemia, poorly controlled high blood pressure, hypercholesterolemia and a history of DVT Allergies: Coded Allergies: codeine (Verified Allergy, Severe, 05/01/15) morphine (Verified Allergy, Severe, FACIAL & HAND SWELLING, 05/01/15) hydrocodone (Unverified Allergy, Unknown, 09/10/21) tramadol (Unverified Allergy, Unknown, 11/14/21) Home Meds Active Scripts Hydrocodone/Acetaminophen (Hydrocodon-Acetaminophen 5-325) 5 Mg-325 Mg Tablet, 1 EACH PO TID for pain, #16 TAB 0 Refills Prov:GA OSORIO MD 04/01/24 Pantoprazole Sodium (Protonix) 40 Mg Tablet.dr, 40 MG PO DAILY for 30 Days, #30 TAB Prov:GA OSORIO MD 04/01/24 Montelukast Sodium (Montelukast Sodium) 10 Mg Tablet, 10 MG PO DAILYBKFST for 14 Days, #14 TAB Prov:SOSA MORRELL 03/20/24 Albuterol Sulfate (Ventolin Hfa) 90 Mcg Hfa.aer.ad, 18 GM IH Q6HPRN PRN for SHORTNESS OF BREATH, #1 INHALER Prov:SOSA MORRELL 03/20/24 Prednisone (Prednisone) 20 Mg Tablet, 40 MG PO DAILYBKFST for 5 Days, #10 TAB Prov:SOSA MORRELL 03/20/24 Acetaminophen (Tylenol) 500 Mg Tab, 500 MG PO Q6HPRN PRN for PAIN, #30 TAB 0 Refills Prov:CHRISTINA TANNER MD 05/11/22 Reported Medications Isosorbide Mononitrate (Isosorbide Mononitrate ER) 60 Mg Tab.er.24h, 60 MG PO DAILY, TAB 03/19/24 Rosuvastatin Calcium (Rosuvastatin Calcium) 40 Mg Tablet, 40 MG PO HS, TAB 03/19/24 Rivaroxaban (Xarelto) 2.5 Mg Tablet, 2.5 MG PO BID, TAB 09/08/23 Aspirin (Aspirin) 81 Mg Tab.chew, 81 MG PO DAILY, TAB.CHEW 09/10/21 Olmesartan Medoxomil (Olmesartan Medoxomil) 20 Mg Tablet, 40 MG PO DAILY, TAB 06/28/20 Carvedilol (Carvedilol) 12.5 Mg Tablet, 12.5 MG PO BID, TAB 06/28/20 Pantoprazole Sodium (Pantoprazole Sodium) 40 Mg Tablet.dr, 40 MG PO DAILY, TAB 03/31/17 Past Medical History Past Medical History: Asthma, COPD, Diabetes-Type II, High Cholesterol, Heart Disease, Hypertension Additional Past Medical Hx: BLOOD CLOTS LOWER EXT, obesity Surgical History: CABG, Other Surgical History Other: FEM POP LEFT LEG Family History: CAD, DM, HTN Social History: Smokers, Lives with family History: Not Applicable RN Note Reviewed/Agreed w/PFSH: Yes Review of System Dictation Constitutional: Negative for fever,chills, and weight loss Eyes: Negative for injury, pain,redness, and discharge ENT: Negative for injury,pain or swelling Cardiovascular: Negative for chest pain, palpitations, and edema Respiratory: Negative for shortness of breath, cough, and wheezing, Abdomen/GI: Negative for abdominal pain, nausea, vomiting, diarrhea, and constipation Back: Negative for injury and pain : Negative for injury, bleeding and discharge MS/Extremity: Negative for injury and deformity Skin: Negative for rash, and discoloration Neuro: Positive for headache and dizziness, denies weakness, numbness, tingling, and seizure Psych: Negative for suicide ideation, homicidal ideation, and hallucinations Initial Vital Sign VS Vital Signs Date Time Temp Pulse Resp B/P (MAP) Pulse Ox O2 Delivery O2 Flow Rate FiO2 08/28/24 01:32 97.9 62 16 198/90 100 Room Air* 0 21 Physical Exam Dictation General: awake, alert, NAD Head/Face: Normocephalic, atraumatic Eyes: PERRL, EOMI, vision at baseline ENT: oral cavity clear, TMs clear, no signs of infection Neck: Trachea midline, supple, no nuchal rigidity Cardiovascular: RRR, normal S1/S2, No MRGs, no JVD Respiratory: CTAB, no respiratory distress, No rales or wheezes Abdomen: Soft, non-tender, non-distended, normal bowel sounds, no guarding or rebound. Skin: Warm, dry, normal turgor, no rash MS/Extremity: Pulses equal, no cyanosis, neurovascular intact, FROM Neuro: COAx4, GCS 15, strength 5/5, CN 2-12 intact, normal cerebellar exam, normal gait, Psych: Normal behavior, mood, and affect normal Extremities-trace edema without any palpable cords, Homans sign is negative Results (Laboratory/Radiology) Laboratory/Radiology Laboratory Tests Test 08/28/24 02:27 08/28/24 02:56 White Blood Count 7.1 K/uL (4.8-10.8) Red Blood Count 4.04 MIL/uL (4.00-5.50) Hemoglobin 12.7 g/dL (12.0-16.0) Hematocrit 38.7 % (36-48) Mean Corpuscular Volume 95.8 fL (79-99) Mean Corpuscular Hemoglobin 31.4 pg (27.0-33.0) Mean Corpuscular Hemoglobin Concent 32.8 g/dL (32.0-36.0) Red Cell Distribution Width 14.1 % (11.0-15.5) Platelet Count 232 K/uL (130-400) Mean Platelet Volume 9.4 fL (7.5-10.5) Immature Granulocyte % (Auto) 0.1 % (0-1) Neutrophils (%) (Auto) 42.2 % (40.0-77.0) Lymphocytes (%) (Auto) 48.9 % (21.0-51.0) Monocytes (%) (Auto) 6.4 % (3.0-13.0) Eosinophils (%) (Auto) 1.7 % (0.0-8.0) Basophils (%) (Auto) 0.7 % (0.0-5.0) Neutrophils # (Auto) 3.0 K/uL (1.8-7.7) Lymphocytes # (Auto) 3.5 K/uL (1.0-4.8) Monocytes # (Auto) 0.5 K/uL (0.1-1.0) Eosinophils # (Auto) 0.12 K/uL (0.00-0.70) Basophils # (Auto) 0.05 K/uL (0.00-0.20) Absolute Immature Granulocyte (auto 0.01 K/uL (0-1) Nucleated Red Blood Cells 0.0 % (0.0-0.19) Sodium Level 144 mmol/L (136-145) Potassium Level 3.7 mmol/L (3.5-5.1) Chloride Level 107 mmol/L (101-111) Carbon Dioxide Level 32 mmol/L (21-32) Blood Urea Nitrogen 13 mg/dL (7-18) Creatinine 0.9 mg/dL (0.5-1.0) Glomerular Filtration Rate Calc 65 mL/min (>90) Random Glucose 101 mg/dL (70-105) Total Calcium 9.2 mg/dL (8.5-10.1) Total Creatine Kinase 37 U/L (21-232) Troponin I High Sensitivity 6.4 ng/L (4-50) B-Type Natriuretic Peptide 76 pg/mL (0-100) Urine Color COLORLESS (YELLOW) Urine Appearance CLEAR (CLEAR) Urine pH 6.0 (5.0-8.0) Urine Specific [place] 1.004 (1.001-1.031) Urine Protein NEGATIVE mg/dL (NEGATIVE) Urine Glucose (UA) NEGATIVE mg/dL (NEGATIVE) Urine Ketones NEGATIVE mg/dL (NEGATIVE) Urine Occult Blood NEGATIVE (NEGATIVE) Urine Nitrate NEGATIVE (NEGATIVE) Urine Bilirubin NEGATIVE mg/dL (NEGATIVE) Urine Urobilinogen 0.2 mg/dL (0.2-1.0) Urine Leukocyte Esterase NEGATIVE Dewayne/uL Labs Reviewed?: Yes ED Course ED Course Orders Procedure Category Date Status Time Hydralazine 20mg Inj PHA 08/28/24 Complete (Apresoline 20mg In 02:30 Cardiac Panel LAB 08/28/24 Complete 02:16 Cbc With Differential LAB 08/28/24 Complete 02:16 Basic Metabolic Panel LAB 08/28/24 Complete 02:16 B-Type Natriuretic LAB 08/28/24 Complete Peptide 02:16 Urinalysis Profile LAB 08/28/24 Complete 02:16 Acetaminophen 325 Tab PHA 08/28/24 Complete (Tylenol 325mg Tab 04:30 Current Medications Medications (Trade) Dose Ordered Sig/Pastora Route PRN Reason Start Time Stop Time Status Last Admin Dose Admin Acetaminophen (TYLenol 325MG TAB) 650 mg ONCE ONCE PO 08/28/24 04:30 08/28/24 04:31 DC 08/28/24 04:34 Hydralazine HCl (APRESOLine 20MG INJ) 20 mg ONCE ONCE IV 08/28/24 02:30 08/28/24 02:31 DC 08/28/24 02:20 Vital Signs Date Time Temp Pulse Resp B/P (MAP) Pulse Ox O2 Delivery O2 Flow Rate FiO2 08/28/24 04:06 66 16 139/58 98 Room Air* 0 21 08/28/24 02:41 66 17 110/46 100 Room Air* 0 21 08/28/24 01:34 97.9 62 16 198/90 100 Room Air 0 08/28/24 01:32 97.9 62 16 198/90 100 Room Air* 0 21 We will perform diagnostic labs, and administer medications according to the patient's complaint. Once the results are available, will review and personally interpreted the labs to rule out any acute life-threatening emergency the trach require immediate intervention and treatment. I will then re-evaluate the patient after treatment and diagnostic exams have return to determine whether the patient requires any further testing, can safely be discharged home or need further admission to hospital for additional treatment and evaluation. Reviewed labs CBC BNP 7 normal for her age brain natriuretic peptide is 76 urinalysis is unremarkable. Blood pressure has responded to hydralazine and it is ranging between 139 to 140s over 58. Her headache is resolved she feels better other than some restless legs. Discharge to home to follow up with her primary care physician Medical Decision Making MDM MDM: Differential diagnosis: Hypertensive urgency, hypertensive emergency, malignant hypertension, increased sympathetic surge from noncompliance Rationale: Tests considered and ordered secondary to shared decision making include: Previous outside records reviewed: Old ER visits. Risk of complication and/or morbidity or mortality of patient management: None Medications-Per medication reconciliation Need for hospitalization: Patient does not meet criteria for hospitalization. Need for emergency major/minor surgery: No There are no social concerns with this patient. Prescription drug management Prescriptions will include symptomatic care Patient's prior external medical records from other ER visits were reviewed by me as indicated. Prior testing and results from previous visits were reviewed. Prior tests were taken into account with medical decision making and resource utilization, independent historian/historians were used to obtain complete medical history. I independently interpreted the test that were performed, results were reviewed by me and considered findings on radiology if ordered. Medical management and examination interpretation discussions were had by me with other qualified healthcare professionals as indicated for the patient's care. Problem List Problem List: (1) Hypertensive emergency (2) Diabetes mellitus (3) Coronary artery disease (4) Hypercholesterolemia (5) Obesity DX & DISP Disposition: Discharge Departure Impression: Primary Impression: Hypertensive emergency Additional Impressions: Diabetes mellitus, Coronary artery disease, Hypercholesterolemia Condition: Stable Additional Instructions: Patient and the caregiver have been informed of all the diagnostic tests and the imaging conducted during the today's visit to the emergency room and has verbalized understanding of the results I have personally reviewed and interpreted all diagnostic exams performed here in the ER today as well as the vital signs documented by the nursing staff. The patient is now being discharged to home and should follow up with the primary care physician or the specialist as directed by the ER staff. Follow-up with primary care provider in 1 to 2 days. Take medications as directed here in the emergency room. Okay to continue home medications unless otherwise discussed during your visit in the emergency room today. Return to your nearest emergency room if symptoms worsen or if there is no improvement. Call 911 if you need immediate assistance. Take Tylenol or Motrin [id number] as needed and if no contraindications are present. Increase oral hydration. A wound culture or [facility] please follow-up with primary care provider and advise them to get repeat ports from our facility. If you had any Oz wrap/splints that were applied here, please do not remove them until you see your primary care or specialty. Referrals: LUIS MILLER DO (PCP) GA OSORIO MD Aug 28, 2024 03:28
[2024-08-28 04:06] VITALS: BP 139/58; PULSE 66; RESP 16; O2SAT 98
[2024-08-28] MEDS: acetaMINOPHEN 325 MG TAB PO ONE (04:34)
[2024-08-28] MEDS: ketOROlac 15MG/ML VIAL (15MG/ML) IV ONE (06:36)
== END 2024-08-28 07:22 | disposition home or self-care (01) ==
LOC: EDH 01:29
DX: I16.1 Hypertensive emergency (principal); E11.9 Type 2 diabetes mellitus without complications; I25.10 Atherosclerotic heart disease of native coronary artery without angina pectoris; E78.00 Pure hypercholesterolemia, unspecified; E66.9 Obesity, unspecified; F17.200 Nicotine dependence, unspecified, uncomplicated; I10 Essential (primary) hypertension; J44.89 Other specified chronic obstructive pulmonary disease; Z79.01 Long term (current) use of anticoagulants; Z79.82 Long term (current) use of aspirin; Z79.899 Other long term (current) drug therapy; Z88.5 Allergy status to narcotic agent; Z95.1 Presence of aortocoronary bypass graft
CPT/HCPCS: 99284; 96374; 96375; 82550; 84484; 80048; 83880; 85025; 81003; 36415; J1885; J0360

== ENCOUNTER → 2024-12-29 | Outpatient (CLI) | payer OTHER, MEDICARE ==
[2024-12-29] MEDS: REGADENOSON 0.4 MG/5 ML PF SYG IVP ONE (15:41)
--- NOTE | 2024-12-30 07:48 | HMCSR ---
APPROVED REPORT Height: 4 ft 9in Weight: 128 lbs TEST INDICATIONS CAD The imaging protocol used to acquire images was Rest Tc-99m/stress Tc-99m 1 day Consent: The procedure was explained and understood by the patient. Informerd consent was witnessed dary gold [id number] First, low dose rest was performed then high dose stress. RESTING DATA: The resting ekg shows: NSR Rest SPECT myocardial perfusion imaging was performed in supine position 76 minutes following the int ravenous injection of 11.3 mCi of Tc-99 Sestamibi. Time of rest injection: 08:25: Date: 12/29/2024 Time of rest imagin:41: Date: 12/29/2024 PHARMACOLOGIC STRESS: Pharmacologic stress test was performed by injecting regadenoson 0.4 mg IV push followed by the intra venous injection of 31.0 mCi of Tc-99 Sestamibi. Time of stress injection: 10:23: Date: 12/29/2024 Time of stress imagin:24: Date: 12/29/2024 Heart Rate at time of stress injection: 55 bpm. Gated Stress SPECT was performed 121 minutes after stress injection. The images were gated to evaluate regional wall motion and calculate left ventricular ejection fracti on. STRESS DETAILS Reason for Termination: Infusion complete Stress Symptoms: Dyspnea; Coughing Max HR Achieved: 84 bpm % of APMHR Achieved: 60 Max Blood Pressure: 176/69 mmHg Stress ECG: NSR Conclusion No ischemia No infarct LV ejection fraction 74% Normal LV wall motion Normal LV size at rest and stress No increased lung uptake
== END | disposition home or self-care (01) ==
LOC: SHCH 07:56
PROVIDERS: ATTEND Internal Medicine Cardiovascular Disease
DX: I25.10 Atherosclerotic heart disease of native coronary artery without angina pectoris (principal); R06.00 Dyspnea, unspecified; R05.9 Cough, unspecified
CPT/HCPCS: 78452; 93017; J2785; A9500 ×2

== ENCOUNTER 2025-04-19 05:48 | Day surgery (SDC) | payer OTHER, MEDICAID ==
[2025-04-17 10:10] LABS: IMMATURE GRANULOCYTE ABSOLUTE 0.02 K/uL (0-1); NUCLEATED RED BLOOD CELLS 0.0 % (0.0-0.19); PLATELET COUNT (AUTO) 247 K/uL (130-400); RED BLOOD CELL COUNT(AUTO) 4.30 MIL/uL (4.00-5.50); RED CELL DISTRIBUTION WIDTH 14.0 % (11.0-15.5); WHITE BLOOD COUNT (AUTO) 8.6 K/uL (4.8-10.8)
[2025-04-17 10:14] LABS: APPEARANCE,URINE CLEAR (CLEAR); GLUCOSE, URINE (UA) NEGATIVE (NEGATIVE); LEUKOCYTE ESTERASE ,URINE NEGATIVE Leu/uL (NEGATIVE); NITRATE,URINE NEGATIVE (NEGATIVE); OCCULT BLOOD,URINE +- (TRACE) (NEGATIVE)
[2025-04-17 10:20] LABS: INR 0.97 (0.85-1.15)
[2025-04-17 10:21] LABS: CREATININE 1.0 mg/dL (0.5-1.0); GLOMERULAR FILTR. RATE CALC 57.0 mL/min (>90); GLUCOSE,RANDOM 91.0 mg/dL (70-105); SODIUM SERUM 139.0 mmol/L (136-145); UREA NITROGEN, BLOOD 10.0 mg/dL (7-18)
[2025-04-17 10:23] LABS: ADD UA MICROSCOPIC YES
[2025-04-17 10:27] LABS: SQUAMOUS EPITHELIAL CELL,UR RARE /HPF (0-2)
[2025-04-17 10:28] VITALS: PULSE 56; RESP 13; TEMP 97.7
--- NOTE | 2025-04-17 11:13 | EKG ---
[facility] Test Date: 2025-04-17 Test Time: 09:54:11 Pat Name: CHUY GRANADOS Department: [facility] Room: Gender: F Structural Architect: [id number] : 1945 Requested By: MIRIAN AARON Order Number: [id number] Reading MD: Maria Elena Murillo Measurements Intervals [place] Rate: 54 P: 62 [place]: 188 QRS: 30 QRSD: 81 T: 35 QT: 425 QTc: 404 Interpretive Statements Sinus rhythm Compared to ECG 02/23/2025 13:32:13 No significant changes Electronically Signed On 04-17-2025 12:33:21 CDT by Maria Elena Murillo Please click the below link to view image of tracing.
--- NOTE | 2025-04-18 00:19 | HMCIMG ---
EXAM: CR Chest, 1 views. CLINICAL HISTORY: Cough. COMPARISON: None provided. FINDINGS: The lungs show no infiltrate or other acute findings. No pleural effusion or pneumothorax. The cardiomediastinal silhouette is within normal limits. Atherosclerotic aortic calcification is noted. No acute osseous abnormality. Radio-opaque sternal sutures are seen. IMPRESSION: Atherosclerotic aortic calcification is noted. /[place]
[~2025-04-19] VITALS: Ht 149.9 cm; Wt 57.2 kg
[2025-04-19] VITALS (11 sets, daily range): BP systolic 129–200; BP diastolic 46–80; PULSE 54–63; RESP 16–20; TEMP 97–97.5
[~2025-04-19 05:48] MED LIST changes: -ACET-66 PO; -ALBU18HF7 IH; +ALEN35TA53 PO; +AMLO-257 PO; -HYDR-4060 PO; +LOSA100T59 PO; +METF-444 PO; -MONT-39 PO; -OLME20TA68 PO; -PANT40TA PO; -PRED20TA3 PO
[2025-04-19] MEDS ORDERED: LIDOCAINE HCL 400MG/20ML VIAL ONE (07:11)
[2025-04-19] MEDS ORDERED: IODIXANOL 320 MG/ML 100 ML VIAL ONE (07:11)
[2025-04-19] MEDS ORDERED: HEParin-NS 1,000 UNIT/500 ML 1,000 ML IV ONE (07:12)
[2025-04-19] MEDS ORDERED: NITROGLYCERIN 50MG VIAL ONE (07:12)
[2025-04-19] MEDS: 0.9%NACL 1000ML 1,000 ML IV ONE (07:17)
[2025-04-19] MEDS ORDERED: MIDAZOLAM HCL 1 MG/ML 2ML VIAL ONE ×3 (08:14→10:54)
[2025-04-19] MEDS ORDERED: HEParin-NS 1,000 UNIT/500 ML 500 ML IV ONE (10:36)
[2025-04-19] MEDS ORDERED: ASPIRIN 325MG EC TAB PO ONE (11:28)
--- NOTE | 2025-04-19 11:58 | PRN ---
Procedure:Peripheral Angiogram Procedure Note Procedure Note: Peripheral Angiogram Date/Time of Service: 04/19/2025 Referring Physician: Dr. Yi Procedures Performed: Left lower extremity peripheral angiogram, peripheral angiogram via 0.018 quick cross and 0.035 glide catheter, balloon angioplasty, balloon lithotripsy, and drug coated balloon angioplasty of the left superficial femoral artery, and drug coated balloon angioplasty of the left popliteal artery Indications for Procedure: PAD, Magnolia category 3 symptoms (left lower extremity) PAD s/p L>R fem-fem bypass graft Tobacco abuse CAD s/p CABG Description of Procedure: [After informed consent was obtained the patient was prepped and draped in the usual sterile fashion a 5 Tristanian arterial sheath with a hemostatic valve was inserted into the left dorsalis pedis arter using a modified Salinger technique on the first pass front wall puncture. We then performed a peripheral angiogram via the 5 Tristanian arterial sheath. The findings are listed below. We then administered heparin 5000 units x1 dose. We then advanced a 0.014 glidewire and 0.018 quick cross catheter into the proximal left popliteal artery. We then removed the Glidewire and performed a peripheral angiogram via the quick cross catheter. The findings are listed below.] Findings: Left external iliac artery: patent Left common femoral artery: patent Left > Right femoral-femoral bypass: patent Left profunda artery: patent Left superficial femoral artery: 100% stenosis (MORTGAGE MANAGER = 230 mm) in the proximal segment of the artery. The artery reconstitutes distally via collateral blood flow Left popliteal artery: 70% stenosis in the mid segment of the artery Left anterior tibial artery: patent Left tibioperoneal artery: patent Left peroneal artery: patent Left posterior tibial artery: patent Left pedal arch: patent, with three-vessel runoff supplying the anterior and posterior segments of the left pedal arch. Intervention: After reviewing the above-mentioned findings the decision was made to intervene on the left superficial femoral artery. We advanced a 0.018 command 18 guidewire and 0.018 quick cross catheter and attempts to cross the MORTGAGE MANAGER, but despite multiple attempts, we are unsuccessful. We then escalated to a 0.018 Astato 30gm guidewire and together with the quick cross catheter were able to cross the MORTGAGE MANAGER. We advanced the guidewire and catheter into the left external iliac artery. We then removed the guidewire and performed a peripheral an giogram via the quick cross catheter which identified were in the true lumen of the left external iliac artery. We then advanced a 0.014 glide wire into the quick cross catheter and advanced it into the left common iliac artery. We then removed the quick cross catheter and performed balloon angioplasty (2.0 x 150mm > 4.0 x 150mm > 6.0 x 120mm), balloon lithotripsy (Shockwave 6.0 x 80mm) and drug coated balloon angioplasty (Medtronic 6.0 x 250 mm) in the proximal, mid, and distal left superficial femoral artery. We then performed drug coated balloon angioplasty (Medtronic 5.0 x 120mm) in the left popliteal artery. The balloons were then removed and repeat angiography was performed via a 0.035 glide catheter, which revealed a widely patent left superficial femoral artery and left popliteal artery, without dissection, perforation, and brisk three- vessel runoff supplying the left foot/pedal arch. The 0.014 glidewire and six Tristanian arterial sheath were then removed and manual pressure was applied to the left dorsalis pedis artery until hemostasis was achieved. The patient tolerated the procedure well and without issue. Estimated Blood Loss: [40]mL Complications: [ None] Conclusion: 1. PAD, Annmarie category 3 symptoms (left lower extremity), 100% stenosis in the proximal left superficial femoral artery status post successful treatment with balloon angioplasty, balloon lithotripsy, and drug coated balloon angioplasty, and 70% stenosis in the left popliteal artery status post successful treatment with drug coated balloon angioplasty, resulting in widely patent arteries, without dissection, perforation, and brisk three-vessel runoff supplying the left foot/pedal arch. 2. PAD, L > R sided femoral-femoral bypass is widely patent 3. Tobacco abuse 4. CAD s/p CABG Recommendations/Instructions: 1. Continue Goal-directed medical therapy. 2. Continue Aspirin 81 mg daily and Xarelto 2.5 mg BID 3. Foot precautions 4. 4 hours of bedrest 5. Start NS at 100ml/hr x 3 hours 6. Okay to DC once bed rest is complete and the left foot is soft, and free of bruising, bleeding, and or hematoma formation. 7. No driving for the next 48 hours. 8. No heavy lifting or strenuous exercise for the next two weeks. 9. Please have the patient follow up with Dr. Pacheco in 1-2 weeks. MIRIAN PACHECO MD Apr 19, 2025 11:58
[2025-04-19] MEDS ORDERED: GLUCAGON 1MG KIT 1 MG ML IM PRN (12:00)
[2025-04-19] MEDS ORDERED: DEXTROSE 50%-WATER 50 ML DISP.SYRIN IV PRN (12:00)
[2025-04-19] MEDS ORDERED: 0.9%NACL 1000ML 1,000 ML IV SCH (12:00)
== END 2025-04-19 17:44 | disposition home or self-care (01) ==
LOC: DAH 05:48
PROVIDERS: ATTEND Internal Medicine Cardiovascular Disease
DX: I73.9 Peripheral vascular disease, unspecified (principal); I70.0 Atherosclerosis of aorta; I25.10 Atherosclerotic heart disease of native coronary artery without angina pectoris; I10 Essential (primary) hypertension; E78.5 Hyperlipidemia, unspecified; J45.909 Unspecified asthma, uncomplicated; Z79.01 Long term (current) use of anticoagulants; Z79.82 Long term (current) use of aspirin; Z82.49 Family history of ischemic heart disease and other diseases of the circulatory system; Z88.5 Allergy status to narcotic agent; Z88.6 Allergy status to analgesic agent; Z79.899 Other long term (current) drug therapy; Z98.890 Other specified postprocedural states
CPT/HCPCS: 80048; 83880; 85025; 85610; 85730; 81001; 36415; 71045; 93005; 75710; 99156; 99157 ×5; 85347; 82948; A4223 ×3; C1887 ×3; C1894 ×2; C1725 ×4; C1769 ×4; A4649 ×2; C2623 ×2; C9764; J3010; J3490 ×3; J7030; J0360; J1644 ×3; J2250 ×2; Q9967; A4215; A4222; A4221; A4663; A4216; A4606; 75716

== ENCOUNTER 2025-04-26 10:32 | Emergency (ER) | payer OTHER, MEDICAID ==
[~2025-04-26] VITALS: Ht 149.9 cm; Wt 58.5 kg
--- NOTE | 2025-04-26 10:44 | ERN ---
ED Note History of Present Illness Stated Complaint: FOOT Chief Complaint: Lower Extremity Pain/Injury Time Seen by MD: 10:36 Dictation: PATIENT IS A 79-YEAR-OLD FEMALE COMING IN VIA EMS WITH COMPLAINTS OF LEFT FOOT PAIN SWELLING ONSET WAS YESTERDAY. SHE IS STATUS POST AN ANGIOGRAM TO THE SAME LEG ON 04/19 BY AND WAS DOING FINE UNTIL YESTERDAY. FOOT IS WARM TO TOUCH PULSES THREADY PALPABLE Allergies: Coded Allergies: codeine (Verified Allergy, Severe, 05/01/15) morphine (Verified Allergy, Severe, FACIAL & HAND SWELLING, 05/01/15) hydrocodone (Unverified Allergy, Unknown, 09/10/21) Home Meds Reported Medications Rosuvastatin Calcium (Rosuvastatin Calcium) 40 Mg Tablet, 40 MG PO HS, TAB 04/17/25 Alendronate Sodium (Alendronate Sodium) 35 Mg Tablet, 35 MG PO QWEEK, TAB 04/17/25 Amlodipine Besylate (Amlodipine Besylate) 5 Mg Tablet, 5 MG PO HS, TAB 04/17/25 Losartan Potassium (Losartan Potassium) 100 Mg Tablet, 100 MG PO HS, TAB 04/17/25 Metformin HCl (Metformin HCl) 500 Mg Tablet, 500 MG PO HS, TAB 02/23/25 Isosorbide Mononitrate (Isosorbide Mononitrate ER) 60 Mg Tab.er.24h, 90 MG PO HS, TAB 03/19/24 Rivaroxaban (Xarelto) 2.5 Mg Tablet, 2.5 MG PO BID, TAB 09/08/23 Aspirin (Aspirin) 81 Mg Tab.chew, 81 MG PO HS, TAB.CHEW 09/10/21 Carvedilol (Carvedilol) 12.5 Mg Tablet, 12.5 MG PO BID, TAB 06/28/20 Pantoprazole Sodium (Pantoprazole Sodium) 40 Mg Tablet.dr, 40 MG PO DAILY, TAB 03/31/17 Past Medical History Past Medical History: COPD, Diabetes-Type II, High Cholesterol, Hypertension, Other Additional Past Medical Hx: CKD Surgical History: CABG Surgical History Other: FEM POP LEFT LEG Family History: CAD, DM, HTN Social History: Smokers, Lives with family History: Not Applicable RN Note Reviewed/Agreed w/PFSH: Yes Review of System Dictation CONSTITUTIONAL: NEGATIVE EXCEPT FOR HPI HEAD/FACE: NEGATIVE EXCEPT FOR HPI EENT: NEGATIVE EXCEPT FOR HPI RESPIRATORY: NEGATIVE EXCEPT FOR HPI GASTROINTESTINAL/ABDOMINAL: NEGATIVE EXCEPT FOR HPI GENITOURINARY: NEGATIVE EXCEPT FOR HPI MUSCULOSKELETAL: NEGATIVE EXCEPT FOR HPI LEFT FOOT PAIN SWELLING INTEGUMENTARY: NEGATIVE EXCEPT FOR HPI NEUROLOGICAL/PSYCH: NEGATIVE EXCEPT FOR HPI HEMATOLOGIC/LYMPHATIC: NEGATIVE EXCEPT FOR HPI ALL SYSTEMS NEGATIVE, EXCEPT NOTED ABOVE. 13 POINT REVIEW OF SYSTEMS ASSESSED AND ALL NEGATIVE EXCEPT FOR ABOVE. Initial Vital Sign VS Vital Signs Date Time Temp Pulse Resp B/P (MAP) Pulse Ox O2 Delivery O2 Flow Rate FiO2 04/26/25 10:34 97.9 59 16 144/68 96 Room Air 0 Physical Exam Dictation VITAL SIGNS REVIEWED GENERAL APPEARANCE: ALERT, ORIENTED X 3, NO ACUTE DISTRESS, WELL DEVELOPED, NOURISHED. 08/19 HEAD AND FACE: NON-TRAUMATIC. EYES: PERRL, PINK CONJUNCTIVAS, EYELID NO TRAUMA, ANTERIOR CHAMBER WITH ARCUS SENILIS. EARS: PINNAS INTACT AND NO SIGNS OF TRAUMA OR ERYTHEMA EAR CANALS CLEAR AND NO DISCHARGE TM NO ERYTHEMA NOSE: NO DISCHARGE, NO BLEEDING. OROPHARYNX: MOUTH NORMAL, TONGUE PINK, PHARYNX CLEAR,NO ERYTHEMA, TONSILS NO EXUDATES, NO ABSCESSES NOTED, MUCOUS MEMBRANE MOIST NECK: SUPPLE, NON-TENDER, NO THYROMEGALY, NO MASSES, NO JVD, NO BRUITS BREAST:DEFERRED CHEST:NO TENDERNESS, NO CREPITUS, NO PARADOXICAL MOVEMENT, NO RETRACTIONS LUNGS:CLEAR, WELL-VENTILATED, SYMMETRIC, NO RALES, NO WHEEZING, NO RHONCHI, NO STRIDOR, GOOD BREATH SOUNDS BILATERALLY HEART: REGULAR RATE, REGULAR RHYTHM, NO MURMUR, NO GALLOPS VASCULAR: LEFT LOWER EXTREMITY PULSES THREADY PALPABLE. IS WARM TO TOUCH ABDOMEN: SOFT, POSITIVE BOWEL SOUNDS, NONDISTENDED, NO GUARDING, NONTENDER, NO REBOUND, NO MASSES NO HEPATOMEGALY, NO SPLENOMEGALY, NO LARSON'S SIGN, NO HERNIAS. RECTAL: DEFERRED GENITAL: DEFERRED NEUROLOGICAL: NORMAL SPEECH, MOTOR FUNCTION INTACT, SENSORY FUNCTION INTACT MUSCULOSKELETAL: NECK NONTENDER, FULL RANGE OF MOTION, BACK NONTENDER, FULL RANGE OF MOTION, EXTREMITIES: NONTENDER, FULL RANGE OF MOTION SKIN: COLOR PINK, DRY, NO TURGOR, NO RASH, NO LACERATIONS, NO ABRASIONS, NO CONTUSIONS. LYMPHATIC: DEFERRED Results (Laboratory/Radiology) Laboratory/Radiology Laboratory Tests Test 04/26/25 10:47 White Blood Count 9.5 K/uL (4.8-10.8) Red Blood Count 3.75 MIL/uL (4.00-5.50) L Hemoglobin 12.2 g/dL (12.0-16.0) Hematocrit 35.5 % (36-48) L Mean Corpuscular Volume 94.7 fL (79-99) Mean Corpuscular Hemoglobin 32.5 pg (27.0-33.0) Mean Corpuscular Hemoglobin Concent 34.4 g/dL (32.0-36.0) Red Cell Distribution Width 14.6 % (11.0-15.5) Platelet Count 300 K/uL (130-400) Mean Platelet Volume 9.1 fL (7.5-10.5) Immature Granulocyte % (Auto) 0.3 % (0-1) Neutrophils (%) (Auto) 62.9 % (40.0-77.0) Lymphocytes (%) (Auto) 28.4 % (21.0-51.0) Monocytes (%) (Auto) 7.2 % (3.0-13.0) Eosinophils (%) (Auto) 0.7 % (0.0-8.0) Basophils (%) (Auto) 0.5 % (0.0-5.0) Neutrophils # (Auto) 5.9 K/uL (1.8-7.7) Lymphocytes # (Auto) 2.7 K/uL (1.0-4.8) Monocytes # (Auto) 0.7 K/uL (0.1-1.0) Eosinophils # (Auto) 0.07 K/uL (0.00-0.70) Basophils # (Auto) 0.05 K/uL (0.00-0.20) Absolute Immature Granulocyte (auto 0.03 K/uL (0-1) Nucleated Red Blood Cells 0.0 % (0.0-0.19) Prothrombin Time 10.8 SEC (9.6-11.6) Prothromb Time International Ratio 1.02 (0.85-1.15) Activated Partial Thromboplast Time 25.5 SEC (26.3-35.5) L Sodium Level 143 mmol/L (136-145) Potassium Level 4.4 mmol/L (3.5-5.1) Chloride Level 105 mmol/L (101-111) Carbon Dioxide Level 33 mmol/L (21-32) H Blood Urea Nitrogen 18 mg/dL (7-18) Creatinine 1.1 mg/dL (0.5-1.0) H Glomerular Filtration Rate Calc 51 mL/min (>90) Random Glucose 100 mg/dL (70-105) Total Calcium 9.0 mg/dL (8.5-10.1) 1320/OR TO A DOPPLER DEMONSTRATES BIPHASIC FLOW TO PEDIS DORSALIS. CHRONIC SNOW'S CYST NOTED REMAINDER OF THE EXAM FOR FROM THE FOOT UP IS BIPHASIC. WE WILL CALL OFFICE FOR A FOLLOW UP OUTPATIENT. Labs Reviewed?: Yes ED Course ED Course Orders Procedure Category Date Status Time Pt And Ptt LAB 04/26/25 Complete 10:41 Cbc With Differential LAB 04/26/25 Complete 10:41 Basic Metabolic Panel LAB 04/26/25 Complete 10:41 Us Arterial Unila Low US 04/26/25 Resulted Ext Dupl 10:41 Acetaminophen 500mg PHA 04/26/25 Transmitted Tab (Tylenol 500mg T 14:00 Vital Signs Date Time Temp Pulse Resp B/P (MAP) Pulse Ox O2 Delivery O2 Flow Rate FiO2 04/26/25 10:34 97.9 59 16 144/68 96 Room Air 0 1345/SPOKE WITH GEOVANNA FROM REVIEWED ULTRASOUND AND LABS. SHE SAID PATIENT HAD AN APPOINTMENT TODAY AND CANCELED TO GO TO THE EMERGENCY ROOM I TOLD HER THAT I HAD NO SIGNIFICANT FINDINGS AND OTHER THAN THE MONOPHASIC FLOW TO THE PEDIS DORSALIS THE LEG WAS INTACT. SHE SAID TO HAVE HER CALL TODAY FOR AN APPOINTMENT THIS INFORMATION WAS CONVEYED TO THE PATIENT AND SHE SAID SHE WILL CALL TODAY Medical Decision Making MDM MDM: DIFFERENTIAL DIAGNOSIS: ELECTROLYTE IMBALANCE/DEHYDRATION/POST PROCEDURAL SWELLING/ISCHEMIA RATIONALE: TESTS CONSIDERED AND ORDERED SECONDARY TO SHARED DECISION MAKING INCLUDE: ULTRASOUNDS/LABS PREVIOUS OUTSIDE RECORDS REVIEWED: OLD ER VISITS. RISK OF COMPLICATION AND/OR MORBIDITY OR MORTALITY OF PATIENT MANAGEMENT: NONE MEDICATIONS-PER MEDICATION RECONCILIATION NEED FOR HOSPITALIZATION: PATIENT DOES NOT MEET CRITERIA FOR HOSPITALIZATION. NONE NEED FOR EMERGENCY MAJOR/MINOR SURGERY: NO THERE ARE NO SOCIAL CONCERNS WITH THIS PATIENT. PRESCRIPTION DRUG MANAGEMENT SPOKE TO OFFICE AND PATIENT IS AWARE SHE NEEDS TO CALL TODAY FOR AN APPOINTMENT IN THE NEXT 1-2 DAYS. PRESCRIPTIONS WILL INCLUDE SYMPTOMATIC CARE PATIENT'S PRIOR EXTERNAL MEDICAL RECORDS FROM OTHER ER VISITS WERE REVIEWED BY ME INDICATED. PRIOR TESTING AND RESULTS FROM PREVIOUS VISITS WERE REVIEWED. PRIOR TESTS WERE TAKEN INTO ACCOUNT WITH MEDICAL DECISION MAKING AND RESOURCE UTILIZATION, INDEPENDENT HISTORIAN/HISTORIANS WERE USED TO OBTAIN COMPLETE MEDICAL HISTORY. I INDEPENDENTLY INTERPRETED THE TEST THAT WERE PERFORMED, RESULTS WERE REVIEWED BY ME AND CONSIDERED FINDINGS ON RADIOLOGY IF ORDERED. MEDICAL MANAGEMENT AND EXAMINATION INTERPRETATION DISCUSSIONS WERE HAD BY ME WITH OTHER QUALIFIED HEALTHCARE PROFESSIONALS INDICATED FOR THE PATIENT'S CARE. DX & DISP Disposition: Discharge Departure Impression: Primary Impression: Peripheral arterial disease with history of revascularization Additional Impressions: Stage 3 chronic kidney disease, Status post angioplasty Condition: Stable Additional Instructions: FOLLOW-UP WITH PRIMARY CARE PROVIDER IN 1 TO 2 DAYS. TAKE MEDICATIONS DIRECTED HERE IN THE EMERGENCY ROOM. OKAY TO CONTINUE HOME MEDICATIONS UNLESS OTHERWISE DISCUSSED DURING YOUR VISIT IN THE EMERGENCY ROOM TODAY. RETURN TO YOUR NEAREST EMERGENCY ROOM IF SYMPTOMS WORSEN OR IF THERE IS NO IMPROVEMENT. CALL 911 IF YOU NEED IMMEDIATE ASSISTANCE. TAKE TYLENOL OR MOTRIN OVER -THE-COUNTER NEEDED AND IF NO CONTRAINDICATIONS ARE PRESENT. INCREASE ORAL HYDRATION. A WOUND CULTURE OR URINE CULTURE WAS ORDERED HERE IN THE EMERGENCY ROOM DEPARTMENT PLEASE FOLLOW-UP WITH PRIMARY CARE PROVIDER AND ADVISE THEM TO GET REPEAT PORTS FROM OUR FACILITY. IF YOU HAD ANY BRYAN WRAP/SPLINTS THAT WERE APPLIED HERE, PLEASE DO NOT REMOVE THEM UNTIL YOU SEE YOUR PRIMARY CARE OR SPECIALTY. FOLLOW ALL DIRECTIONS FROM YOUR ANGIOPLASTY ON 04/19/2025 FROM [facility]. CALL OFFICE TODAY FOR AN APPOINTMENT IN THE NEXT 1-2 DAYS. Referrals: LUIS MILLER DO (PCP) MIRIAN AARON MD Time of Disposition: 13:46 I have reviewed the case, and I agree with, Diagnosis and Plan AMANDA TONEY NP Apr 26, 2025 10:44
[2025-04-26 10:55] LABS: IMMATURE GRANULOCYTE ABSOLUTE 0.03 K/uL (0-1); NUCLEATED RED BLOOD CELLS 0.0 % (0.0-0.19); PLATELET COUNT (AUTO) 300 K/uL (130-400); RED BLOOD CELL COUNT(AUTO) 3.75 MIL/uL (4.00-5.50); RED CELL DISTRIBUTION WIDTH 14.6 % (11.0-15.5); WHITE BLOOD COUNT (AUTO) 9.5 K/uL (4.8-10.8)
[2025-04-26 11:08] LABS: CREATININE 1.1 mg/dL (0.5-1.0); GLOMERULAR FILTR. RATE CALC 51.0 mL/min (>90); GLUCOSE,RANDOM 100.0 mg/dL (70-105); SODIUM SERUM 143.0 mmol/L (136-145); UREA NITROGEN, BLOOD 18.0 mg/dL (7-18)
[2025-04-26 11:11] LABS: INR 1.02 (0.85-1.15)
--- NOTE | 2025-04-26 11:32 | NUR ---
[facility] at this time pt assigned to fast track from ems stretcher to recliner.
--- NOTE | 2025-04-26 13:18 | HMCIMG ---
EXAM: US Duplex left Lower Extremity Arteries. CLINICAL HISTORY: SWELLING PAIN WITH DECREASED PULSES LEFT FOOT STATUS POST ANGIOGRAM 04/19 TECHNIQUE: Real-time ultrasound scan of the arteries of the left lower extremity with 2-D hernandez scale, color Doppler flow and spectral waveform analysis. COMPARISON: 05/11/22. FINDINGS: COMMON FEMORAL ARTERY: Peak systolic velocity of 209 cm/sec with a biphasic waveform with 50%-80% stenosis. SUPERFICIAL FEMORAL ARTERY: Peak systolic velocity of 82 cm/sec with a biphasic waveform. No occlusion or significant stenosis (interval regression). POPLITEAL ARTERY: Peak systolic velocity of 66 cm/sec with biphasic waveform. No occlusion or significant stenosis. 5.2 x 1.5 cm sized Shepard's cyst at the popliteal fossa. CALF ARTERIES: Posterior tibial artery shows a peak systolic velocity of 32 cm/sec with a biphasic waveform. Anterior tibial artery shows peak systolic velocity of 52 cm/sec with a biphasic waveform. The dorsalis pedis artery shows a peak systolic velocity of 54 cm/sec with a monophasic waveform. No occlusion or significant stenosis. IMPRESSION: 1. 50%-80% stenosis of the left common femoral artery. Recommend CT angiogram of the left lower extremity. 2. Shepard's cyst measuring 5.2 x 1.5 cm in the left popliteal fossa. /[place]
[2025-04-26 14:45] VITALS: BP 140/65; PULSE 60; RESP 16; TEMP 97.9; O2SAT 97
== END 2025-04-26 14:49 | disposition home or self-care (01) ==
LOC: EDH 10:32
DX: I73.9 Peripheral vascular disease, unspecified (principal); I12.9 Hypertensive chronic kidney disease with stage 1 through stage 4 chronic kidney disease, or unspecified chronic kidney disease; E11.51 Type 2 diabetes mellitus with diabetic peripheral angiopathy without gangrene; N18.30 Chronic kidney disease, stage 3 unspecified; E11.22 Type 2 diabetes mellitus with diabetic chronic kidney disease; E78.00 Pure hypercholesterolemia, unspecified; F17.200 Nicotine dependence, unspecified, uncomplicated; J44.9 Chronic obstructive pulmonary disease, unspecified; Z79.01 Long term (current) use of anticoagulants; Z79.82 Long term (current) use of aspirin; Z79.899 Other long term (current) drug therapy; Z88.5 Allergy status to narcotic agent; Z95.1 Presence of aortocoronary bypass graft; Z98.61 Coronary angioplasty status
CPT/HCPCS: 36415; 80048; 85025; 85610; 85730; 93926; 99284

== ENCOUNTER 2025-05-29 15:51 | Observation (INO) | payer OTHER, MEDICAID ==
[~2025-05-29] VITALS: Ht 149.9 cm; Wt 59.7 kg
[2025-05-29 16:41] LABS: IMMATURE GRANULOCYTE ABSOLUTE 0.03 K/uL (0-1); NUCLEATED RED BLOOD CELLS 0.0 % (0.0-0.19); PLATELET COUNT (AUTO) 287 K/uL (130-400); RED BLOOD CELL COUNT(AUTO) 3.71 MIL/uL (4.00-5.50); RED CELL DISTRIBUTION WIDTH 15.6 % (11.0-15.5); WHITE BLOOD COUNT (AUTO) 8.0 K/uL (4.8-10.8)
[2025-05-29 16:48] LABS: CREATININE 2.0 mg/dL (0.5-1.0); GLOMERULAR FILTR. RATE CALC 25.0 mL/min (>90); GLUCOSE,RANDOM 130.0 mg/dL (70-105); SODIUM SERUM 141.0 mmol/L (136-145); UREA NITROGEN, BLOOD 28.0 mg/dL (7-18)
[2025-05-29 16:50] LABS: INR 1.01 (0.85-1.15)
--- NOTE | 2025-05-29 16:53 | ERN ---
General Chief Complaint: Chest Pain Stated Complaint: CHEST PAIN, DIZZINESS,NAUSEA AND VOMITING Time Seen by MD: 15:54 History of Present Illness Initial Comments 79-year-old female, history of hypertension, CAD, GERD, dyslipidemia, osteoporosis, who presents for episode of nausea, vomiting, low blood pressure. Patient reports she was in her normal state of health, sitting, she felt faint and near-syncope. She felt pain in her head and her neck, and she began vomiting. She had a near syncopal episode according to family. The family took her blood pressure and found it to be low 70s systolic at home. She also reported some chest discomfort during the event. On arrival here in the ER she is still reports feeling bad the most of her symptoms have improved. She denies any recent fevers, chills, or other systemic illness. Allergies: Coded Allergies: codeine (Verified Allergy, Severe, 05/01/15) morphine (Verified Allergy, Severe, FACIAL & HAND SWELLING, 05/01/15) hydrocodone (Unverified Allergy, Unknown, 09/10/21) Home Meds Reported Medications Rosuvastatin Calcium (Rosuvastatin Calcium) 40 Mg Tablet, 40 MG PO HS, TAB 04/17/25 Alendronate Sodium (Alendronate Sodium) 35 Mg Tablet, 35 MG PO QWEEK, TAB 04/17/25 Amlodipine Besylate (Amlodipine Besylate) 5 Mg Tablet, 5 MG PO HS, TAB 04/17/25 Losartan Potassium (Losartan Potassium) 100 Mg Tablet, 100 MG PO HS, TAB 04/17/25 Metformin HCl (Metformin HCl) 500 Mg Tablet, 500 MG PO HS, TAB 02/23/25 Isosorbide Mononitrate (Isosorbide Mononitrate ER) 60 Mg Tab.er.24h, 90 MG PO HS, TAB 03/19/24 Rivaroxaban (Xarelto) 2.5 Mg Tablet, 2.5 MG PO BID, TAB 09/08/23 Aspirin (Aspirin) 81 Mg Tab.chew, 81 MG PO HS, TAB.CHEW 09/10/21 Carvedilol (Carvedilol) 12.5 Mg Tablet, 12.5 MG PO BID, TAB 06/28/20 Pantoprazole Sodium (Pantoprazole Sodium) 40 Mg Tablet.dr, 40 MG PO DAILY, TAB 03/31/17 Past Medical History Past Medical History: COPD, Diabetes-Type II, High Cholesterol, Hypertension, Other Medical History Other: CKD Past Surgical History: CABG Surgical History Other: FEM POP LEFT LEG Family History Family History: CAD, DM, HTN Social History Social History: Smokers, Lives with family Female( History) History: Not Applicable ROS Dictation CONSTITUTIONAL: Weakness HEAD/FACE: Headache EENT: No eye pain, no blurred vision, no tearing, no double vision, no ear pain, no ear discharge, no nose pain, no nasal congestion, no throat pain, no throat swelling, no mouth pain. RESPIRATORY: No cough, no orthopnea, no SOB, no stridor, no wheezing. CARDIOVASCULAR: Chest pain GASTROINTESTINAL/ABDOMINAL: No abdominal pain, no constipation, no diarrhea, no nausea, no vomiting. GENITOURINARY: No abnormal discharge, no dysuria, no frequent urination, no hematuria. No complaints of pain in the genitals. MUSCULOSKELETAL: No back pain, no gout, no joint pain, no joint swelling, no muscle pain, no muscle stiffness, no neck pain. INTEGUMENTARY: No change in color, no change in hair/nails, no dryness, no lesion, no lumps, no rash. NEUROLOGICAL/PSYCH: No anxiety, not depressed, no emotional problem, no headache, no numbness, no pre-existing deficit, no history of seizures, no tremors, no weakness. HEMATOLOGIC/LYMPHATIC: Not anemic, no history of blood clots, no apparent bleeding, no bruising, glands not swollen. All Systems Negative, Except as Noted. Physical Exam Physical Exam Dictation VITAL SIGNS: Reviewed. GENERAL APPEARANCE: Alert, oriented x3, no acute distress. HEAD AND FACE: Non-traumatic. EYES: PERRL, pink conjunctivas, eyelid no trauma, anterior chamber clear. EARS: Pinnas intact and no signs of trauma or erythema. Ear canals clear and no discharge. TMs no erythema. NOSE: No discharge, no bleeding. OROPHARYNX: Mouth normal, teeth no caries, tongue pink. Pharynx clear, no erythema. Tonsils no exudates, no abscesses noted. Mucous membrane moist. NECK: Supple, non-tender, no thyromegaly, no masses, no JVD, no bruits. BREAST: Deferred. CHEST: No tenderness, no crepitus, no paradoxical movement, no retractions. LUNGS: Clear, well-ventilated, symmetric, no rales, no wheezing, no rhonchi, no stridor, good breath sounds bilaterally. HEART: Regular rate, regular rhythm, no murmur, no gallops. VASCULAR: No peripheral edema. ABDOMEN: Soft, positive bowel sounds, nondistended, no guarding, nontender, no rebound, no masses no hepatomegaly, no splenomegaly, no Johnson's sign, no hernias. RECTAL: Deferred. GENITAL: Deferred. NEUROLOGICAL: Normal speech, gross motor function intact, gross sensory function intact. MUSCULOSKELETAL: Neck nontender, full range of motion, back nontender, full r ulices of motion. EXTREMITIES: Nontender, full range of motion. SKIN: Color pink, dry, no turgor, no rash, no lacerations, no abrasions, no contusions. LYMPHATICS: Deferred. Results Laboratory and Microbiology Lab and Micro Result Laboratory Tests Test 05/29/25 16:32 White Blood Count 8.0 K/uL (4.8-10.8) Red Blood Count 3.71 MIL/uL (4.00-5.50) L Hemoglobin 12.2 g/dL (12.0-16.0) Hematocrit 35.9 % (36-48) L Mean Corpuscular Volume 96.8 fL (79-99) Mean Corpuscular Hemoglobin 32.9 pg (27.0-33.0) Mean Corpuscular Hemoglobin Concent 34.0 g/dL (32.0-36.0) Red Cell Distribution Width 15.6 % (11.0-15.5) H Platelet Count 287 K/uL (130-400) Mean Platelet Volume 9.2 fL (7.5-10.5) Immature Granulocyte % (Auto) 0.4 % (0-1) Neutrophils (%) (Auto) 55.5 % (40.0-77.0) Lymphocytes (%) (Auto) 36.1 % (21.0-51.0) Monocytes (%) (Auto) 6.5 % (3.0-13.0) Eosinophils (%) (Auto) 0.6 % (0.0-8.0) Basophils (%) (Auto) 0.9 % (0.0-5.0) Neutrophils # (Auto) 4.4 K/uL (1.8-7.7) Lymphocytes # (Auto) 2.9 K/uL (1.0-4.8) Monocytes # (Auto) 0.5 K/uL (0.1-1.0) Eosinophils # (Auto) 0.05 K/uL (0.00-0.70) Basophils # (Auto) 0.07 K/uL (0.00-0.20) Absolute Immature Granulocyte (auto 0.03 K/uL (0-1) Nucleated Red Blood Cells 0.0 % (0.0-0.19) Prothrombin Time 10.7 SEC (9.6-11.6) Prothromb Time International Ratio 1.01 (0.85-1.15) Activated Partial Thromboplast Time 23.1 SEC (26.3-35.5) L Sodium Level 141 mmol/L (136-145) Potassium Level 3.7 mmol/L (3.5-5.1) Chloride Level 102 mmol/L (101-111) Carbon Dioxide Level 30 mmol/L (21-32) Blood Urea Nitrogen 28 mg/dL (7-18) H Creatinine 2.0 mg/dL (0.5-1.0) H Glomerular Filtration Rate Calc 25 mL/min (>90) Random Glucose 130 mg/dL (70-105) H Total Calcium 9.0 mg/dL (8.5-10.1) Magnesium Level 2.50 mg/dL (1.80-2.40) H Total Bilirubin 0.5 mg/dL (0.2-1.0) Direct Bilirubin 0.1 mg/dL (0.0-0.3) Aspartate Amino Transf (AST/SGOT) 17 U/L (10-37) Alanine Aminotransferase (ALT/SGPT) 42 U/L (12-78) Alkaline Phosphatase 47 U/L (50-136) L Troponin I High Sensitivity 5 ng/L (4-50) Total Protein 6.3 g/dL (6.0-8.3) Albumin 3.2 g/dL (3.5-5.0) L Lipase 41 U/L (16-77) MDM CC: multiple complaints, episode of near syncope with hypotension, headache, chest pain Historian: patient Comorbidities: Advanced age, dyslipidemia, osteoporosis, hypertension, diabetes, CAD, anticoagulated on Xarelto Limitations by social determinants of health: None Differential diagnosis: Arrhythmia, syncope, metabolic derangement, brain bleed, ACS, other Referred vital signs initially showed blood pressure 95/46, that is improved in the ER treatment final blood pressure 122/79 other vital signs stable. EKG shows a sinus rhythm rate of 74 with a normal axis, good R-wave progression, intervals are stable no STEMI. Independently interpreted by me. Labs shows no leukocytosis or anemia. Coags stable. Chemistry panel shows an LIVAN creatinine two BUN at 28. Liver enzymes stable. Troponin stable. Lipase stable. DVT study is negative per my independent interpretation. Chest x-ray shows no cardiomegaly pleural effusions or focal infiltrates. Sternotomy scars intact. Independently interpreted by me. CT head with the conjoined has says no subdural no brain bleed no abnormality per my independent interpretation. Patient received 1 L of lactated Ringer's, IV Reglan, IV Toradol here in the ER. Patient had transient hypotension with a near syncopal episode, has a an LIVAN, was also vomiting. We will admit to ensure that LIVAN corrects and keep on telemetry for further evaluation. Hospitalist consulted. ED Course Orders Procedure Category Date Status Time Cbc With Differential LAB 05/29/25 Complete 15:55 Prothrombin Time With LAB 05/29/25 Complete INR 15:55 Chest 1vw RAD 05/29/25 Resulted 15:55 12 Lead Ekg Tracing- EKG 05/29/25 Complete Technical 15:55 Troponin I High LAB 05/29/25 Complete Sensitivity 15:55 Partial LAB 05/29/25 Complete Thromboplastin Time 15:55 Lipase LAB 05/29/25 Complete 16:22 Hepatic Function Panel LAB 05/29/25 Complete 16:22 Ct Head/Brain W/O CT 05/29/25 Resulted Contrast 16:22 Lactated Ringers PHA 05/29/25 Complete 1000ml (Lactated 16:30 Metoclopramide 10 PHA 05/29/25 Complete Mg/2 Ml Vial (Reglan 1 16:30 Ketorolac PHA 05/29/25 Complete Tromethamine 15mg/Ml 16:30 Us Venous Doppler US 05/29/25 Resulted Bilateral 16:30 Basic Metabolic Panel LAB 05/29/25 Complete 16:32 Magnesium LAB 05/29/25 Complete 16:32 0.9%Nacl 1000ml (Ns PHA 05/29/25 In Process 1000ml) 18:30 Current Medications Medications (Trade) Dose Ordered Sig/Pastora Route PRN Reason Start Time Stop Time Status Last Admin Dose Admin Ketorolac Tromethamine (toRADol) 15 mg ONCE ONCE IV 05/29/25 16:30 05/29/25 16:31 DC 05/29/25 16:55 Lactated Ringer's 1,000 ml @ 0 mls/hr ONCE ONCE IV 05/29/25 16:30 05/29/25 16:31 DC 05/29/25 16:55 Metoclopramide HCl (regLAN 10MG IV) 5 mg ONCE ONCE IVP 05/29/25 16:30 05/29/25 16:31 DC 05/29/25 16:55 Sodium Chloride 1,000 ml @ 125 mls/hr ONCE ONCE IV 05/29/25 18:30 05/30/25 02:29 Vital Signs Date Time Temp Pulse Resp B/P (MAP) Pulse Ox O2 Delivery O2 Flow Rate FiO2 05/29/25 16:15 97.5 78 18 95/46 93 Room Air* 0 21 05/29/25 15:54 98.1 76 20 122/79 98 Room Air DX & DISP Disposition: Inpatient Departure Impression: Primary Impression: Transient hypotension Additional Impressions: Near syncope, LIVAN (acute kidney injury), Vomiting Critical Time: 30 minutes (Critical Care Procedure NoteAuthorized and Performed by: meTotal critical care time: Approximately 36 minutesDue to a high probability of clinically significant, life threatening deterioration, the patient required my highest level of preparedness to intervene emergently and I personally spent this critical care time directly and personally managing the patient. This critical care time included obtaining a history; examining the patient; pulse oximetry; ordering and review of studies; arranging urgent treatment with development of a management plan; evaluation of patient's response to treatment; frequent reassessment; and, discussions with other providers.This critical care time was performed to assess and manage the high probability of imminent, life-threatening deterioration that could result in multi-organ failure. It was exclusive of separately billable procedures and treating other patients and teaching time.Please see MDM section and the rest of the note for further information on patient assessment and treatment.) Condition: Stable Referrals: LUIS MILLER DO (PCP) DAVID LUNA DO May 29, 2025 16:52
[2025-05-29] MEDS: LACTATED RINGERS 1000ML 1,000 ML IV ONE ×2 (16:55→22:07)
[2025-05-29 16:57] LABS: ASPARTATE AMINOTRANSFERASE 17.0 U/L (10-37); TOTAL PROTEIN, SERUM 6.3 g/dL (6.0-8.3)
--- NOTE | 2025-05-29 17:30 | EKG ---
[facility] Test Date: 2025-05-29 Test Time: 16:02:10 Pat Name: CHUY GRANADOS Department: [facility] Room: ED Gender: F [employer] H[employer] Technician: [id number] : 1945 Requested By: DAVID LUNA Order Number: [id number] Reading MD: Maria Elena Murillo Measurements Intervals [place] Rate: 74 P: 17 NM: 170 QRS: 30 QRSD: 71 T: 28 QT: 372 QTc: 413 Interpretive Statements Sinus rhythm Compared to ECG 04/17/2025 09:54:11 No significant changes Electronically Signed On 05-29-2025 20:10:22 CDT by Maria Elena Murillo Please click the below link to view image of tracing.
--- NOTE | 2025-05-29 18:01 | HMCIMG ---
EXAM: US for Deep Venous Thrombosis, bilateral Lower Extremity. CLINICAL HISTORY: Leg Pain and Swelling TECHNIQUE: Real-time ultrasound scan of the veins of the bilateral lower extremity with color Doppler flow, spectral waveform analysis and compression. COMPARISON: None provided. FINDINGS: DEEP VEINS: The common femoral, superficial femoral, and popliteal veins are echolucent and compressible. There is normal color Doppler flow throughout. The visualized calf veins appear patent. SOFT TISSUES: Incidental 3.6 x 1.0 x 4.1 cm complicated Shepard's cyst within the left popliteal fossa. IMPRESSION: 1. No acute deep venous thrombosis in the bilateral lower extremities. /[place]
--- NOTE | 2025-05-29 18:11 | HMCIMG ---
EXAM: CR Chest, 1 View. CLINICAL HISTORY: CP COMPARISON: None provided. FINDINGS: LUNGS: The lungs show no infiltrate or other acute finding. PLEURAL SPACES: No evidence of pleural effusion or pneumothorax. MEDIASTINUM: The cardiomediastinal silhouette is within normal limits. BONES: No acute osseous abnormality. IMPRESSION: No acute cardiopulmonary pathology is evident. /[place]
--- NOTE | 2025-05-29 18:13 | HMCIMG ---
EXAM: CT Head Without IV contrast. CLINICAL HISTORY: headache, vomit TECHNIQUE: Axial computed tomography images of the head/brain without intravenous contrast. COMPARISON: None provided. FINDINGS: BRAIN: No evidence of acute hemorrhage. No mass lesion. No CT evidence for acute territorial infarct. No midline shift or extra-axial collections. VENTRICLES: No hydrocephalus. ORBITS: The orbits are unremarkable. SINUSES AND MASTOIDS: The paranasal sinuses and mastoid air cells are clear. BONES: No fracture. SOFT TISSUES: Unremarkable. IMPRESSION: No acute intracranial abnormality. /[place]
--- NOTE | 2025-05-29 19:03 | HP ---
[facility] HISTORY & PHYSICAL Date Patient Seen: May 29, 2025 Time of Visit: 19:03 Supervising Physician: Dr. John Keene Primary Care Physician: Dr. Tonya Kaba Outpatient Specialists: Inpatient Consults: [facility] cardiology PROBLEM LIST: Hypotension, POA, improved with IV fluids Chest pain, POA, r/o cardiac etiology Critically elevated DDIMER, r/o PE/ DVT Near-syncope, POA Dehydration 2/2 vomiting, POA Hypermagnesemia, POA Acute on chronic kidney disease, GFR 25, POA (Prior GFR 51 on 04/26/25) Hyperglycemia, POA Acute dehydration, POA Anemia, POA Hypoalbuminemia, POA Chronic problem list: Hypertension, CAD, GERD, dyslipidemia, osteoporosis, COPD, DM type 2, hypercholesteremia, hypertension, CKD, CAD s/p CABG, left femoral pop. HPI: Ms. Warner is a 79-year-old female with a history of CAD, GERD, dyslipidemia, osteoporosis who presented [place] [facility] for evaluation of chest pain, dizziness, vomiting and low blood pressure. The patient reported that she was feeling well and then sudden felt like she wanted to faint. Patient reported that she felt pain in her neck and head and then she began vomiting. The family reported that she had a near-syncope episode, and that they took the blood pressure and it was 70s systolic. The patient reported that during this even she felt chest pain, pain in her head and neck, and began vomiting. On arrival to the ER most of her symptoms were improved but she still failed bad". The patient denied any fever, chills, any other problem, we will concern. Labs: Troponin five, BNP 111, D-dimer 1445, GFR 25 (GFR 51 on 04/26/25). UA is negative for leuk EST and nitrites. UA, flu, COVID are all negative. I went to assess the patient at bedside in ED 11. The patient's breathing was even, unlabored, in no distress. The daughter was at bedside. The patient reports that she has been feeling very sleepy x1 month ago. She sees Dr. Yi as an outpatient and saw him last month. She reports she sees field engineer for PAD. She states that she had a fem pop to the left leg with no stents placed this time, but had stents placed previous time. I informed the patient and daughter of labs, diagnostics, and plan of care. They verbalized understanding and are in agreement with the plan. Plan and assessment are listed below. PAST MEDICAL HX: see above PAST SURGICAL HX: CABG, left femoral pop SOCIAL HISTORY: No tobacco, ETOH, or illicit drug use Coded Allergies: codeine (Verified Allergy, Severe, 05/01/15) morphine (Verified Allergy, Severe, FACIAL & HAND SWELLING, 05/01/15) hydrocodone (Unverified Allergy, Unknown, 09/10/21) REVIEW OF SYSTEMS: 12 point ROS reviewed with patient. Pertinent positives mentioned above. Otherwise negative. PHYSICAL EXAM: GENERAL: Alert, weak, awake oriented x 3 HEENT: EOMI, Sclera non icteric, moist mucosa NECK: Supple, no JVD, trachea midline LUNGS: Clear breath sounds bilaterally. No wheezes HEART: Regular rate and rhythm. Normal S1 and S2, without murmurs ABD: Abdomen soft, nontender. Bowel sounds present EXT: No clubbing cyanosis or edema NEURO: Alert and oriented X3, follows commands Vital Signs (last 8hr) Date Time Temp Pulse Resp B/P (MAP) Pulse Ox O2 Delivery O2 Flow Rate FiO2 05/29/25 16:15 97.5 78 18 95/46 93 Room Air* 0 21 05/29/25 15:54 98.1 76 20 122/79 98 Room Air LABS: Hematology Labs: Test 05/29/25 16:32 Range/Units White Blood Count 8.0 4.8-10.8 K/uL Red Blood Count 3.71 L 4.00-5.50 MIL/uL Hemoglobin 12.2 12.0-16.0 g/dL Hematocrit 35.9 L 36-48 % Mean Corpuscular Volume 96.8 79-99 fL Mean Corpuscular Hemoglobin 32.9 27.0-33.0 pg Mean Corpuscular Hemoglobin Concent 34.0 32.0-36.0 g/dL Red Cell Distribution Width 15.6 H 11.0-15.5 % Platelet Count 287 130-400 K/uL Mean Platelet Volume 9.2 7.5-10.5 fL Immature Granulocyte % (Auto) 0.4 0-1 % Neutrophils (%) (Auto) 55.5 40.0-77.0 % Lymphocytes (%) (Auto) 36.1 21.0-51.0 % Monocytes (%) (Auto) 6.5 3.0-13.0 % Eosinophils (%) (Auto) 0.6 0.0-8.0 % Basophils (%) (Auto) 0.9 0.0-5.0 % Neutrophils # (Auto) 4.4 1.8-7.7 K/uL Lymphocytes # (Auto) 2.9 1.0-4.8 K/uL Monocytes # (Auto) 0.5 0.1-1.0 K/uL Eosinophils # (Auto) 0.05 0.00-0.70 K/uL Basophils # (Auto) 0.07 0.00-0.20 K/uL Absolute Immature Granulocyte (auto 0.03 0-1 K/uL Nucleated Red Blood Cells 0.0 0.0-0.19 % Chemistry Labs: Test 05/29/25 16:32 Range/Units Sodium Level 141 136-145 mmol/L Potassium Level 3.7 3.5-5.1 mmol/L Chloride Level 102 101-111 mmol/L Carbon Dioxide Level 30 21-32 mmol/L Blood Urea Nitrogen 28 H 7-18 mg/dL Creatinine 2.0 H 0.5-1.0 mg/dL Glomerular Filtration Rate Calc 25 >90 mL/min Random Glucose 130 H 70-105 mg/dL Total Calcium 9.0 8.5-10.1 mg/dL Magnesium Level 2.50 H 1.80-2.40 mg/dL Total Bilirubin 0.5 0.2-1.0 mg/dL Direct Bilirubin 0.1 0.0-0.3 mg/dL Aspartate Amino Transf (AST/SGOT) 17 10-37 U/L Alanine Aminotransferase (ALT/SGPT) 42 12-78 U/L Alkaline Phosphatase 47 L 50-136 U/L Troponin I High Sensitivity 5 4-50 ng/L Total Protein 6.3 6.0-8.3 g/dL Albumin 3.2 L 3.5-5.0 g/dL Lipase 41 16-77 U/L Coagulation Labs: Test 05/29/25 16:32 Range/Units Prothrombin Time 10.7 9.6-11.6 SEC Prothromb Time International Ratio 1.01 0.85-1.15 Activated Partial Thromboplast Time 23.1 L 26.3-35.5 SEC DIAGNOSTICS / RADIOLOGY RESULTS: [ ] PLAN -Admit patient to medical floor with telemetry monitoring. -Antiplatelet therapy with Aspirin. -Atorvastatin 40 mg p.o. daily. -Blood pressure checks every 4 hours and as needed. -Pending Echo complete with spectral + color Doppler with bubble study to be done in am. -Carotids. -VQ scan and bilateral venous & arterial Dopplers. -Consult cardiology and Dr. Chiang. -LR at 100 ml/hr X1 Liter. -Reconcile home medications once available. -Glucometer checks before meals and at bedtime with regular insulin sliding scale as needed -PRN medications for pain, N/V, constipation, fever, hypertension -AM labs -Monitor renal and liver function -Monitor electrolytes and treat accordingly PRN -GI and DVT prophylaxis. -Further plan/orders per hospitalization course. NEURO: Minimize central acting medications as possible. Maintain fall precautions, adequate lighting during the day PULMONARY: Supplemental 02 as needed. Maintain aspiration precautions at all times CARDIOVASCULAR: Follow hemodynamics. Vital signs per facility protocol GI & NUTRITION: Continue with nutritional support. Continue stool softeners and laxatives as needed. KIDNEYS & ELECTROLYTES: Strict monitoring of intake, output and overall fluid balance. Avoid nephrotoxic medications to the extent possible. Medications to be dosed according to renal function. Monitor electrolytes and replace as needed ENDOCRINE: Maintain blood glucose between 100-180 at all times. Hypoglycemia protocol in place INFECTIOUS DISEASE: Trend temperature, WBC and procalcitonin level Follow cultures, deescalate antibiotics as soon as possible. Panculture if new onset fever ONCOLOGY/HEMATOLOGY/COAGULATION: Monitor for s/s of bleeding Monitor hemoglobin, coagulation studies as needed SKIN: Pressure ulcer prevention per facility protocol Specialty mattress ORTHO/REHAB: Continue PT/OT Prophylaxis: Continue GI and DVT prophylaxis Code Status: Full Resuscitation Disposition: TBD ATTESTATION BY PHYSICIAN I have evaluated the patient chart, medical records, and spoke with appropriate staff. I reviewed the documentation, medical decision making, and treatment plan as noted by the FABIOLA above. I agree with the findings and plan of care. John Keene MD, LUCIA M WHEEL TRUER May 29, 2025 19:03
[2025-05-29] MEDS: 0.9%NACL 1000ML 1,000 ML IV ONE (20:09)
[2025-05-29] MEDS ORDERED: LACTULOSE 20 GM/30 ML UDCUP PO PRN (20:30)
[2025-05-29 20:33] LABS: RAPID GROUP A STREP negative (NEGATIVE)
[2025-05-29 20:37] LABS: SARS-CoV-2, RNA, NAAT NEGATIVE SARS CoV-2 (NEGATIVE)
[2025-05-29 20:43] LABS: INFLUENZA TYPE A Negative For Type A (NEGATIVE); INFLUENZA TYPE B Negative For Type B (NEGATIVE)
[2025-05-29 20:54] LABS: APPEARANCE,URINE CLEAR (CLEAR); GLUCOSE, URINE (UA) NEGATIVE (NEGATIVE); LEUKOCYTE ESTERASE ,URINE NEGATIVE Leu/uL (NEGATIVE); NITRATE,URINE NEGATIVE (NEGATIVE); OCCULT BLOOD,URINE NEGATIVE (NEGATIVE)
[2025-05-29 20:57] LABS: ADD UA MICROSCOPIC YES
[2025-05-29 20:58] LABS: OTHER CASTS, URINE 1 /LPF (None Seen); SQUAMOUS EPITHELIAL CELL,UR RARE /HPF (0-2)
[2025-05-29] MEDS: FAMOTIDINE 20MG TAB PO SCH (22:07)
[2025-05-30] VITALS (13 sets, daily range): BP systolic 143–193; BP diastolic 61–77; PULSE 57–70; RESP 18–21; TEMP 97.8–98.4; O2SAT 96–97
[2025-05-30 05:11] LABS: NUCLEATED RED BLOOD CELLS 0.0 % (0.0-0.19); PLATELET COUNT (AUTO) 234.0 K/uL (130-400); RED BLOOD CELL COUNT(AUTO) 3.28 MIL/uL (4.00-5.50); RED CELL DISTRIBUTION WIDTH 15.0 % (11.0-15.5); WHITE BLOOD COUNT (AUTO) 7.2 K/uL (4.8-10.8)
[2025-05-30 05:45] LABS: CREATININE 1.7 mg/dL (0.5-1.0); GLOMERULAR FILTR. RATE CALC 30.0 mL/min (>90); GLUCOSE,RANDOM 85.0 mg/dL (70-105); PHOSPHORUS 3.8 mg/dL (2.5-4.9); SODIUM SERUM 142.0 mmol/L (136-145); UREA NITROGEN, BLOOD 27.0 mg/dL (7-18)
--- NOTE | 2025-05-30 08:20 | HMCIMG ---
EXAMINATION: DUPLEX ULTRASOUND EXAMINATION OF THE BILATERAL CAROTID AND VERTEBRAL ARTERIES. CLINICAL HISTORY: Dizziness. History of CAD with stent. COMPARISON: None provided. TECHNIQUE: Real-time ultrasound scan of the bilateral carotid and vertebral arteries, 2-D grayscale, with color Doppler flow and spectral waveform analysis. FINDINGS: Color and spectral Doppler interrogation of the carotid vessels on the right demonstrate peak systolic velocities as follows: CCA (Proximal and distal): 84 and 82 cm/s respectively. Bulb: 82 cm/s. ECA: 62 cm/s. ICA (Proximal, mid, and distal): 70, 108, and 84 cm/s respectively. Vertebral artery demonstrates antegrade flow: 47 cm/s. Right ICA/CCA ratio: 1.3 Peak systolic velocities on the left are as follows: CCA (Proximal and distal): 118 and 86 cm/s respectively. Bulb: 71 cm/s. ECA: 268 cm/s. ICA (Proximal, mid, and distal): 120, 121, and 68 cm/s respectively. Vertebral artery demonstrates antegrade flow: 108 cm/s. Left ICA/CCA ratio: 1.3 Both the common carotid arteries and their branches reveal mild intimal thickening. There are calcified plaques in the right bulb, mid, distal common carotid, and proximal internal carotid arteries causing about 20% to 30% diameter stenosis. There are calcified plaques in the left bulb, distal common carotid, proximal internal and external carotid arteries causing about 20% to 30% diameter stenosis. There is tortuous left internal carotid artery. There is raised velocity in the left external carotid artery. IMPRESSION: Mild intimal thickening in the bilateral carotid arteries and their branches. Plaques as described. There is no significant flow limiting lesions in the remainder of the arteries. Raised velocity in the left external carotid artery. /[place]
--- NOTE | 2025-05-30 08:25 | HMCIMG ---
EXAMINATION: DUPLEX ULTRASOUND EXAMINATION OF THE BILATERAL LOWER EXTREMITY ARTERIES. CLINICAL HISTORY: PAD. History of stent to lower extremity. COMPARISON: Left lower extremity arterial doppler dated 04/26/2025. FINDINGS: Peak systolic velocities within the right lower arteries are as follows: Common femoral artery: 92 cm/s. Superficial femoral artery: 174 cm/s at proximal, 98 cm/s at mid, and 66 cm/s at distal segments. Popliteal artery: 114 cm/s at proximal and 58 cm/s at distal segments. Posterior tibial artery: 52 cm/s. Anterior tibial artery: 67 cm/s. Dorsalis pedis artery: 57 cm/s. The right lower limb arteries demonstrate triphasic to biphasic waveforms in all arteries. Peak systolic velocities within the left lower arteries are as follows: Common femoral artery: 337 cm/s. Superficial femoral artery: 121 cm/s at proximal, 78 cm/s at mid, and 75 cm/s at distal segments. Popliteal artery: 58 cm/s at proximal and 50 cm/s at distal segments. Posterior tibial artery: 54 cm/s. Anterior tibial artery: 71 cm/s. Dorsalis pedis artery: 61 cm/s. The left lower limb arteries demonstrate biphasic waveforms in all arteries. There is intimal wall thickening with calcifications in both the lower limb arteries. There are calcified plaques in the bilateral common femoral arteries causing about 20% to 30% diameter stenosis. There is a cyst that measures 6.0 x 4.5 x 5.3 cm in the left popliteal fossa with septation and internal echoes. There is left femoral to femoral bypass graft with raised velocity of 357 cm/s. There is raised velocity in the left common femoral artery reflecting more than 80% stenosis. There is reversal of flow in the right common femoral artery. IMPRESSION: Mild intimal wall thickening with calcifications in both the lower limb arteries. Both lower limb arteries demonstrate triphasic to biphasic waveforms. Plaques as described. Patent left femoral to femoral bypass graft. Interval appearance. 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 Interval increase in size. Raised velocity in the left common femoral artery reflecting more than 80% stenosis. Reversal of flow in the right common femoral artery. Recommend CT/MR angiogram. /[place]
[2025-05-30] MEDS: ASPIRIN 81MG CHEW TAB PO SCH (10:02)
[2025-05-30] MEDS: ENOXAPARIN SODIUM 30 MG/0.3 ML SQ SCH (10:03)
--- NOTE | 2025-05-30 11:24 | PN ---
[facility] PROGRESS NOTE Date Patient Seen: May 30, 2025 Time of Visit: 11:24 Supervising Physician: John Keene MD Primary Care Physician: Dr. Tonya Kaba Outpatient Specialists: Inpatient Consults: [facility] cardiology PROBLEM LIST: Hypotension, POA, improved with IV fluids Chest pain, POA, r/o cardiac etiology Critically elevated DDIMER, r/o PE/ DVT Near-syncope, POA Dehydration 2/2 vomiting, POA Hypermagnesemia, POA Acute on chronic kidney disease, GFR 25, POA (Prior GFR 51 on 04/26/25) Hyperglycemia, POA Acute dehydration, POA Anemia, POA Hypoalbuminemia, POA Chronic problem list: Hypertension, CAD, GERD, dyslipidemia, osteoporosis, COPD, DM type 2, hypercholesteremia, hypertension, CKD, CAD s/p CABG, left femoral pop. INTERVAL HISTORY: Pt is awake alert and oriented. Hemodynamically stable. No chest pain or SOB at this time. Pt went for VQ scan today pending results. Per RN no major overnight events. REVIEW OF SYSTEMS: 12 point ROS reviewed with patient. Pertinent positives mentioned above. Otherwise negative. PHYSICAL EXAM: GENERAL: Alert, weak, awake oriented x 3 HEENT: EOMI, Sclera non icteric, moist mucosa NECK: Supple, no JVD, trachea midline LUNGS: Clear breath sounds bilaterally. No wheezes HEART: Regular rate and rhythm. Normal S1 and S2, without murmurs ABD: Abdomen soft, nontender. Bowel sounds present EXT: No clubbing cyanosis or edema NEURO: Alert and oriented X3, follows commands Vital Signs (last 8hr) Date Time Temp Pulse Resp B/P (MAP) Pulse Ox O2 Delivery O2 Flow Rate FiO2 05/30/25 07:00 98.4 59 18 167/76 98 Room Air 05/30/25 04:00 97.9 60 20 143/61 98 Room Air LABS: Hematology Labs: Test 05/30/25 04:28 05/29/25 16:32 Range/Units White Blood Count 7.2 4.8-10.8 K/uL Red Blood Count 3.28 L 4.00-5.50 MIL/uL Hemoglobin 10.7 L 12.0-16.0 g/dL Hematocrit 31.3 L 36-48 % Mean Corpuscular Volume 95.4 79-99 fL Mean Corpuscular Hemoglobin 32.6 27.0-33.0 pg Mean Corpuscular Hemoglobin Concent 34.2 32.0-36.0 g/dL Red Cell Distribution Width 15.0 11.0-15.5 % Platelet Count 234 130-400 K/uL Mean Platelet Volume 9.3 7.5-10.5 fL Nucleated Red Blood Cells 0.0 0.0-0.19 % Immature Granulocyte % (Auto) 0.4 0-1 % Neutrophils (%) (Auto) 55.5 40.0-77.0 % Lymphocytes (%) (Auto) 36.1 21.0-51.0 % Monocytes (%) (Auto) 6.5 3.0-13.0 % Eosinophils (%) (Auto) 0.6 0.0-8.0 % Basophils (%) (Auto) 0.9 0.0-5.0 % Neutrophils # (Auto) 4.4 1.8-7.7 K/uL Lymphocytes # (Auto) 2.9 1.0-4.8 K/uL Monocytes # (Auto) 0.5 0.1-1.0 K/uL Eosinophils # (Auto) 0.05 0.00-0.70 K/uL Basophils # (Auto) 0.07 0.00-0.20 K/uL Absolute Immature Granulocyte (auto 0.03 0-1 K/uL Chemistry Labs: Test 05/30/25 05:13 05/30/25 04:28 05/29/25 16:32 Range/Units Whole Blood Glucose 81 70-110 MG/DL Sodium Level 142 136-145 mmol/L Potassium Level 3.9 3.5-5.1 mmol/L Chloride Level 104 101-111 mmol/L Carbon Dioxide Level 29 21-32 mmol/L Blood Urea Nitrogen 27 H 7-18 mg/dL Creatinine 1.7 H 0.5-1.0 mg/dL Glomerular Filtration Rate Calc 30 >90 mL/min Random Glucose 85 70-105 mg/dL Total Calcium 8.6 8.5-10.1 mg/dL Phosphorus Level 3.8 2.5-4.9 mg/dL Magnesium Level 2.20 1.80-2.40 mg/dL Thyroid Stimulating Hormone (TSH) 2.07 # 0.36-3.74 uIU/mL Total Bilirubin 0.5 0.2-1.0 mg/dL Direct Bilirubin 0.1 0.0-0.3 mg/dL Aspartate Amino Transf (AST/SGOT) 17 10-37 U/L Alanine Aminotransferase (ALT/SGPT) 42 12-78 U/L Alkaline Phosphatase 47 L 50-136 U/L Troponin I High Sensitivity 5 4-50 ng/L B-Type Natriuretic Peptide 111 H 0-100 pg/mL Total Protein 6.3 6.0-8.3 g/dL Albumin 3.2 L 3.5-5.0 g/dL Lipase 41 16-77 U/L Coagulation Labs: Test 05/29/25 16:32 Range/Units Prothrombin Time 10.7 9.6-11.6 SEC Prothromb Time International Ratio 1.01 0.85-1.15 Activated Partial Thromboplast Time 23.1 L 26.3-35.5 SEC D-Dimer Quantitative (PE/DVT) 1445 *H 0-500 ng/mL DIAGNOSTICS / RADIOLOGY RESULTS: [ ][place] [address] [address] IMAGING REPORT Signed PATIENT: CHUY GRANADOS MR#: [id number] : 1945 SEX: F AGE: 79 LOCATION: 2D ORDER STATUS: ADM IN REPORT#: [id number] SERVICE 1130 REASON: r/o PE, chest pain ORDERING PHYSICIAN: YURI ARROYO LICENSED OCCUPATIONAL THERAPY ASSISTANT PROCEDURE: PULM V P - NM PULMONARY/LUNG VENT/PERF VQ EXAM: NM Lung Perfusion and Ventilation Scan. CLINICAL HISTORY: r/o PE, chest pain TECHNIQUE: Ventilation images of the lungs were obtained after inhalation of the radiopharmceutical. Then, radiolabeled MAA was administered intravenously and planar images of the lungs were obtained in multiple projections. COMPARISON: 05/29 16:32 EDT CR - CHEST 1VW FINDINGS: VENTILATION: No segmental ventilation defect. PERFUSION: No segmental perfusion defect. IMPRESSION: Normal VQ scan based on modified PIOPED criteria. /[place] DICTATED BY: KYA JALLOH Jr., MD DATE: 05/30/25 1509 ELECTRONICALLY SIGNED BY: KYA JALLOH Jr., MD DATE: 05/30/251508 PLAN -Antiplatelet therapy with Aspirin. -Atorvastatin 40 mg p.o. daily. -Blood pressure checks every 4 hours and as needed. -Pending Echo complete with spectral + color Doppler with bubble study to be done in am. -VQ scan and bilateral venous & arterial Dopplers. -Consult cardiology and Dr. Chiang. -LR at 100 ml/hr X1 Liter. -Reconcile home medications once available. -Glucometer checks before meals and at bedtime with regular insulin sliding scale as needed -PRN medications for pain, N/V, constipation, fever, hypertension -AM labs -Monitor renal and liver function -Monitor electrolytes and treat accordingly PRN -GI and DVT prophylaxis. -Further plan/orders per hospitalization course. NEURO: Minimize central acting medications as possible. Maintain fall precautions, adequate lighting during the day PULMONARY: Supplemental 02 as needed. Maintain aspiration precautions at all times CARDIOVASCULAR: Follow hemodynamics. Vital signs per facility protocol GI & NUTRITION: Continue with nutritional support. Continue stool softeners and laxatives as needed. KIDNEYS & ELECTROLYTES: Strict monitoring of intake, output and overall fluid balance. Avoid nephrotoxic medications to the extent possible. Medications to be dosed according to renal function. Monitor electrolytes and replace as needed ENDOCRINE: Maintain blood glucose between 100-180 at all times. Hypoglycemia protocol in place INFECTIOUS DISEASE: Trend temperature, WBC and procalcitonin level Follow cultures, deescalate antibiotics as soon as possible. Panculture if new onset fever ONCOLOGY/HEMATOLOGY/COAGULATION: Monitor for s/s of bleeding Monitor hemoglobin, coagulation studies as needed SKIN: Pressure ulcer prevention per facility protocol Specialty mattress ORTHO/REHAB: Continue PT/OT Prophylaxis: Continue GI and DVT prophylaxis Code Status: Full Resuscitation Disposition: TBD ATTESTATION BY PHYSICIAN I have evaluated the patient chart, medical records, and spoke with appropriate staff. I reviewed the documentation, medical decision making, and treatment plan as noted by the mid-level provider above. I agree with the findings and plan of care. John Keene MD, NELLY J AGACNP May 30, 2025 11:24
[2025-05-30 12:23] LABS: CREATINE KINASE, TOTAL 33.0 U/L (21-232)
--- NOTE | 2025-05-30 14:10 | HMCIMG ---
EXAM: NM Lung Perfusion and Ventilation Scan. CLINICAL HISTORY: r/o PE, chest pain TECHNIQUE: Ventilation images of the lungs were obtained after inhalation of the radiopharmceutical. Then, radiolabeled MAA was administered intravenously and planar images of the lungs were obtained in multiple projections. COMPARISON: 05/29 16:32 EDT CR - CHEST 1VW FINDINGS: VENTILATION: No segmental ventilation defect. PERFUSION: No segmental perfusion defect. IMPRESSION: Normal VQ scan based on modified PIOPED criteria. /[place]
--- NOTE | 2025-05-30 15:59 | NUR ---
DCP: HOME Sw met with pt and her daughter Mimi Warner [phone] Pt lives alone in her apt, gets $81 in food stamp assistance. Per daughter, she assists pt with bathing dressing and grooming, home management, meal prep and transportation. Daughter works 7hrs a day thru [employer] [facility] as pt's provider. Pt has w/c, walker with seat, cane, scooter, shower chair, bsc, and hospital bed. No HH or HD. Pt uses [facility] for rx needs and Tonya Kaba is pt's PCP. Pt and daughter deny need for SNF and pt will return home at mi
[2025-05-30] MEDS: BUDESONIDE 0.5 MG/2 ML INH IH SCH (19:12)
--- NOTE | 2025-05-30 23:57 | HMCSR ---
APPROVED REPORT EXAM: Two-dimensional and M-mode echocardiogram with Doppler and color Doppler. INDICATION ICD: dizziness Chest Pain 2D Dimensions RVDd3.0 cmLVEF(%)67.4 (>50%)LVED Vol(simp.)80.0 mL IVSd0.9 (0.7-1.1cm)FS(%)37 %LVES Vol(simp.)29.0 mL LVDd4.0 (3.8-5.6cm)LA (2D)3.8 (1.6-4.0cm)LVEF(%, simp.)64 % PWd1.2 (0.7-1.1cm)Ao Root(2D)2.6 (2.0-3.7cm)LA ESV INDEX (BP)20.63 mL/m2 LVDs2.5 (2.5-4.0cm)LVOT diam1.8 (1.8-2.4cm) IVC diam1.5 cm Deformation Strain Apical 4-17.8 % Apical 2-19.8 % Apical 3-16.3 % Global Strain-18.0 % M-Mode Dimensions EPSS0.4 cm LA (MM)4.1 (1.6-4.0cm) Ao Root(MM)2.8 (2.0-3.7cm) Aortic Valve AoV Vmax1.2 m/[place] Peak GR5.9 mmHgLVOT Vmax1.1 m/s AoV VTI0.3 mAo Mean GR3.2 mmHgLVOT VTI0.31 m RENETTA (VMAX)2.26 cm2AVA (VTI) 2.2 cm2 Mitral Valve MV E Vmax87.2 cm/sDECEL Ycrl143 ms MV A Wfxa339.4 cm/sP 1/2 T77 ms E/A ratio0.8MVA (PHT)2.9 cm2 TDI E/E' Iapexj38.9E/E' Ftuncws83.9 Medial E' Peak V6.76 cm/sLateral E' Peak V5.84 cm/s Pulmonary Valve PV Vmax0.9 m/sPV VTI0.22 mPV Mean GR1.7 mmHg PV Peak GR3.5 mmHg Tricuspid Valve TR Vmax2.5 m/sRAP (EST) 3 olHxINOF75.2 mmHg TR Peak GR24.2 mmHg Left Ventricle The left ventricle is normal size. No regional wall motion abnormalities noted. Mild concentric left ventricular hypertrophy. Left ventricular systolic function is normal, estimated LVEF is 60-65%. Stag e I diastolic dysfunction. Right Ventricle The right ventricle is normal size. The right ventricular systolic function is normal. Atria The left atrium size is normal. The right atrium size is normal. Aortic Valve Aortic valve is trileaflet. The leaflets are mildly thickened and calcified. Trace aortic regurgitati on. There is no aortic valvular stenosis. Mitral Valve The mitral valve is normal in structure. The leaflets are mildly thickened and calcified. Trace leann l regurgitation. There is no mitral valve stenosis. Tricuspid Valve The tricuspid valve is normal in structure. Mild tricuspid regurgitation. RVSP is 24 mmHg Pulmonic Valve Pulmonic valve is not well visualized. Great Vessels The aortic root is normal in size. The IVC is normal in size and collapses >50% with inspiration. Pericardium There is no pericardial effusion. Conclusion Mild concentric left ventricular hypertrophy. No regional wall motion abnormalities noted. Left ventricular systolic function is normal, estimated LVEF is 60-65%. Stage I diastolic dysfunction. Trace aortic regurgitation. Trace mitral regurgitation. Mild tricuspid regurgitation. PASP is 27 mmHg There is no pericardial effusion.
[2025-05-31] VITALS (9 sets, daily range): BP systolic 101–157; BP diastolic 63–93; PULSE 57–83; RESP 16–18; TEMP 97.8–98.3; O2SAT 96–97
--- NOTE | 2025-05-31 11:28 | PN ---
[facility] PROGRESS NOTE Date Patient Seen: May 31, 2025 Time of Visit: 11:28 Supervising Physician: [ ] Primary Care Physician: Dr. Tonya Kaba Outpatient Specialists: Inpatient Consults: [facility] cardiology PROBLEM LIST: Hypotension, POA, improved with IV fluids Chest pain, POA, r/o cardiac etiology Critically elevated DDIMER, r/o PE/ DVT Near-syncope, POA Dehydration 2/2 vomiting, POA Hypermagnesemia, POA Acute on chronic kidney disease, GFR 25, POA (Prior GFR 51 on 04/26/25) Hyperglycemia, POA Acute dehydration, POA Anemia, POA Hypoalbuminemia, POA Chronic problem list: Hypertension, CAD, GERD, dyslipidemia, osteoporosis, COPD, DM type 2, hypercholesteremia, hypertension, CKD, CAD s/p CABG, left femoral pop. INTERVAL HISTORY: Pt is awake alert and oriented. Hemodynamically stable. No chest pain or SOB at this time. Pt went for VQ scan today pending results. Per RN no major overnight events. REVIEW OF SYSTEMS: 12 point ROS reviewed with patient. Pertinent positives mentioned above. Otherwise negative. PHYSICAL EXAM: GENERAL: Alert, weak, awake oriented x 3 HEENT: EOMI, Sclera non icteric, moist mucosa NECK: Supple, no JVD, trachea midline LUNGS: Clear breath sounds bilaterally. No wheezes HEART: Regular rate and rhythm. Normal S1 and S2, without murmurs ABD: Abdomen soft, nontender. Bowel sounds present EXT: No clubbing cyanosis or edema NEURO: Alert and oriented X3, follows commands Vital Signs (last 8hr) Date Time Temp Pulse Resp B/P (MAP) Pulse Ox O2 Delivery O2 Flow Rate FiO2 05/31/25 08:02 97.9 57 16 154/64 95 Room Air 05/31/25 06:28 60 18 05/31/25 06:27 60 18 N/A Room Air 21 LABS: Hematology Labs: Test 05/30/25 04:28 05/29/25 16:32 Range/Units White Blood Count 7.2 4.8-10.8 K/uL Red Blood Count 3.28 L 4.00-5.50 MIL/uL Hemoglobin 10.7 L 12.0-16.0 g/dL Hematocrit 31.3 L 36-48 % Mean Corpuscular Volume 95.4 79-99 fL Mean Corpuscular Hemoglobin 32.6 27.0-33.0 pg Mean Corpuscular Hemoglobin Concent 34.2 32.0-36.0 g/dL Red Cell Distribution Width 15.0 11.0-15.5 % Platelet Count 234 130-400 K/uL Mean Platelet Volume 9.3 7.5-10.5 fL Nucleated Red Blood Cells 0.0 0.0-0.19 % Immature Granulocyte % (Auto) 0.4 0-1 % Neutrophils (%) (Auto) 55.5 40.0-77.0 % Lymphocytes (%) (Auto) 36.1 21.0-51.0 % Monocytes (%) (Auto) 6.5 3.0-13.0 % Eosinophils (%) (Auto) 0.6 0.0-8.0 % Basophils (%) (Auto) 0.9 0.0-5.0 % Neutrophils # (Auto) 4.4 1.8-7.7 K/uL Lymphocytes # (Auto) 2.9 1.0-4.8 K/uL Monocytes # (Auto) 0.5 0.1-1.0 K/uL Eosinophils # (Auto) 0.05 0.00-0.70 K/uL Basophils # (Auto) 0.07 0.00-0.20 K/uL Absolute Immature Granulocyte (auto 0.03 0-1 K/uL Chemistry Labs: Test 05/31/25 10:59 05/30/25 12:00 05/30/25 04:28 05/29/25 16:32 Range/Units Whole Blood Glucose 73 70-110 MG/DL Total Creatine Kinase 33 21-232 U/L Troponin I High Sensitivity 5.8 4-50 ng/L Sodium Level 142 136-145 mmol/L Potassium Level 3.9 3.5-5.1 mmol/L Chloride Level 104 101-111 mmol/L Carbon Dioxide Level 29 21-32 mmol/L Blood Urea Nitrogen 27 H 7-18 mg/dL Creatinine 1.7 H 0.5-1.0 mg/dL Glomerular Filtration Rate Calc 30 >90 mL/min Random Glucose 85 70-105 mg/dL Total Calcium 8.6 8.5-10.1 mg/dL Phosphorus Level 3.8 2.5-4.9 mg/dL Magnesium Level 2.20 1.80-2.40 mg/dL Thyroid Stimulating Hormone (TSH) 2.07 # 0.36-3.74 uIU/mL Total Bilirubin 0.5 0.2-1.0 mg/dL Direct Bilirubin 0.1 0.0-0.3 mg/dL Aspartate Amino Transf (AST/SGOT) 17 10-37 U/L Alanine Aminotransferase (ALT/SGPT) 42 12-78 U/L Alkaline Phosphatase 47 L 50-136 U/L B-Type Natriuretic Peptide 111 H 0-100 pg/mL Total Protein 6.3 6.0-8.3 g/dL Albumin 3.2 L 3.5-5.0 g/dL Lipase 41 16-77 U/L Coagulation Labs: Test 05/29/25 16:32 Range/Units Prothrombin Time 10.7 9.6-11.6 SEC Prothromb Time International Ratio 1.01 0.85-1.15 Activated Partial Thromboplast Time 23.1 L 26.3-35.5 SEC D-Dimer Quantitative (PE/DVT) 1445 *H 0-500 ng/mL DIAGNOSTICS / RADIOLOGY RESULTS: [ ] PLAN -Antiplatelet therapy with Aspirin. -Atorvastatin 40 mg p.o. daily. -Blood pressure checks every 4 hours and as needed. -Pending Echo complete with spectral + color Doppler with bubble study to be done in am. -VQ scan and bilateral venous & arterial Dopplers. -Consult cardiology and Dr. Chiang. -LR at 100 ml/hr X1 Liter. -Reconcile home medications once available. -Glucometer checks before meals and at bedtime with regular insulin sliding scale as needed -PRN medications for pain, N/V, constipation, fever, hypertension -AM labs -Monitor renal and liver function -Monitor electrolytes and treat accordingly PRN -GI and DVT prophylaxis. -Further plan/orders per hospitalization course. NEURO: Minimize central acting medications as possible. Maintain fall precautions, adequate lighting during the day PULMONARY: Supplemental 02 as needed. Maintain aspiration precautions at all times CARDIOVASCULAR: Follow hemodynamics. Vital signs per facility protocol GI & NUTRITION: Continue with nutritional support. Continue stool softeners and laxatives as needed. KIDNEYS & ELECTROLYTES: Strict monitoring of intake, output and overall fluid balance. Avoid nephrotoxic medications to the extent possible. Medications to be dosed according to renal function. Monitor electrolytes and replace as needed ENDOCRINE: Maintain blood glucose between 100-180 at all times. Hypoglycemia protocol in place INFECTIOUS DISEASE: Trend temperature, WBC and procalcitonin level Follow cultures, deescalate antibiotics as soon as possible. Panculture if new onset fever ONCOLOGY/HEMATOLOGY/COAGULATION: Monitor for s/s of bleeding Monitor hemoglobin, coagulation studies as needed SKIN: Pressure ulcer prevention per facility protocol Specialty mattress ORTHO/REHAB: Continue PT/OT Prophylaxis: Continue GI and DVT prophylaxis Code Status: Full Resuscitation Disposition: [facility] May 31, 2025 11:28
[2025-05-31] MEDS ORDERED: 0.9%NACL 1000ML 1,000 ML IV SCH (11:30)
[2025-05-31 15:19] LABS: CREATININE 1.3 mg/dL (0.5-1.0); GLOMERULAR FILTR. RATE CALC 42.0 mL/min (>90); GLUCOSE,RANDOM 103.0 mg/dL (70-105); SODIUM SERUM 142.0 mmol/L (136-145); UREA NITROGEN, BLOOD 26.0 mg/dL (7-18)
--- NOTE | 2025-05-31 23:49 | DS ---
[facility] DISCHARGE SUMMARY Date Patient Seen: May 31, 2025 Time of Visit: 23:42 Supervising Physician: John Keene MD Primary Care Physician: Dr. Tonya Kaba Outpatient Specialists: Inpatient Consults: [facility] cardiology PROBLEM LIST: Hypotension, POA, resolved with IV fluids Chest pain, POA,cardiac etiology ruled out Critically elevated DDIMER,negative for PE on vq scan and negative for DVT on us doppler Near-syncope, POA Dehydration 2/2 vomiting, POA resolved Acute on chronic kidney disease, GFR 25, POA (Prior GFR 51 on 04/26/25), improving Hyperglycemia, POA, improved Acute dehydration, POA resolved Anemia, POA Hypoalbuminemia, POA Chronic problem list: Hypertension, CAD, GERD, dyslipidemia, osteoporosis, COPD, DM type 2, hypercholesteremia, hypertension, CKD, CAD s/p CABG, left femoral pop. HOSPITAL COURSE: HPI The patient is a 79-year-old female with a past medical history of coronary artery disease (CAD), gastroesophageal reflux disease (GERD), dyslipidemia, and osteoporosis, who presented to the emergency department with complaints of sudden onset dizziness, vomiting, and near-syncope. She reported feeling well earlier in the day, then suddenly developed neck and head pain followed by nausea and vomiting. Family noted systolic blood pressure in the 70s during the episode. She also reported chest discomfort associated with the event. Upon arrival to the ED, symptoms had partially improved but she continued to feel weak and unwell. She denied fever, chills, or other systemic complaints. Laboratory Findings: BMP: Sodium 111, Creatinine 2.0 on admission ? improved to 1.3 with IV hydration D-dimer: 1445 (elevated) Troponin: 25 (not consistent with acute coronary syndrome) UA: Negative for leukocyte esterase and nitrites Influenza and COVID tests: Negative Imaging / Diagnostics: Chest X-Ray: No acute pulmonary pathology. CT Head: No acute intracranial abnormality. Venous Doppler (bilateral LE): No evidence of DVT. Arterial Ultrasound (bilateral LE): Peripheral vascular disease with mild intim al wall thickening and calcification; triphasic to biphasic waveforms; plaque noted; left femoral bypass graft visualized. Carotid Ultrasound: Mild intimal thickening and atherosclerotic plaque in bilateral carotids; no significant flow-limiting lesions. V/Q Scan: Normal; no evidence of pulmonary embolism. Echocardiogram (2-D): LVEF 6065% Stage I diastolic dysfunction Trace mitral regurgitation RVSP 27.2 mmHg No pericardial effusion The patient was admitted for further evaluation and management of hypotension, near-syncope, and acute kidney injury (LIVAN) likely secondary to dehydration. She received gentle IV hydration with normal saline at 50 mL/hr, with subsequent improvement in renal function (Cr 2.0 to 1.3). No evidence of acute coronary syndrome, pulmonary embolism, or intracranial process was identified. Her symptoms resolved with supportive care. She remained hemodynamically stable, afebrile, and clinically improved throughout her stay. CHRONIC PROBLEMS: continue previous management per PCP unless otherwise indicated Condition at Discharge Alert, oriented, ambulating independently Hemodynamically stable No active complaints of chest pain, dizziness, or vomiting Pt hemodynamically stable and afebrile at time of discharge. PCP notified of patients admission, hospital course and discharge. Continued Medications: Alendronate Sodium (Alendronate Sodium) 35 Mg Tablet 35 MG PO QWEEK, TAB Aspirin (Aspirin) 81 Mg Tab.chew 81 MG PO HS, TAB.CHEW Carvedilol (Carvedilol) 12.5 Mg Tablet 12.5 MG PO BID, TAB Isosorbide Mononitrate (Isosorbide Mononitrate ER) 60 Mg Tab.er.24h 90 MG PO HS, TAB Metformin HCl (Metformin HCl) 500 Mg Tablet 500 MG PO HS, TAB Pantoprazole Sodium (Pantoprazole Sodium) 40 Mg Tablet.dr 40 MG PO DAILY, TAB Rivaroxaban (Xarelto) 2.5 Mg Tablet 2.5 MG PO BID, TAB Rosuvastatin Calcium (Rosuvastatin Calcium) 40 Mg Tablet 40 MG PO HS, TAB Discontinued Medications: Amlodipine Besylate (Amlodipine Besylate) 5 Mg Tablet 5 MG PO HS, TAB Losartan Potassium (Losartan Potassium) 100 Mg Tablet 100 MG PO HS, TAB PHYSICAL EXAM: GENERAL: Alert, weak, awake oriented x 3 HEENT: EOMI, Sclera non icteric, moist mucosa NECK: Supple, no JVD, trachea midline LUNGS: Clear breath sounds bilaterally. No wheezes HEART: Regular rate and rhythm. Normal S1 and S2, without murmurs ABD: Abdomen soft, nontender. Bowel sounds present EXT: No clubbing cyanosis or edema NEURO: Alert and oriented X3, follows commands FOLLOW-UP: Primary Care Physician: Within 13 [id number]: As outpatient for PVD management if not already established Nephrology: Within 1 week for renal function follow-up RECOMMENDATIONS: See Discharge Instructions Diet: Heart-healthy, low-sodium diet Activity: As tolerated Return to ED for chest pain, syncope, persistent vomiting, worsening weakness, or new neurological symptoms. This case was seen and discussed with my supervising physician. More than 30 minutes spent on discharge process, including evaluation of the patient, discussion with nursing staff, medication reconciliation and follow-up appointments ATTESTATION BY PHYSICIAN I have evaluated the patient chart, medical records, and spoke with appropriate staff. I reviewed the documentation, medical decision making, and treatment plan as noted by the mid-level provider above. I agree with the findings and plan of care. John Keene MD, [facility] May 31, 2025 23:49
== END 2025-05-31 18:10 | disposition home or self-care (01) ==
LOC: EDH 15:51 → EDHIP 18:37 → 2DH 23:33
PROVIDERS: ADMIT Internal Medicine Critical Care Medicine; ATTEND Internal Medicine Critical Care Medicine
DX: I95.9 Hypotension, unspecified (principal); R07.89 Other chest pain; R11.2 Nausea with vomiting, unspecified; M54.2 Cervicalgia; M79.89 Other specified soft tissue disorders; I12.9 Hypertensive chronic kidney disease with stage 1 through stage 4 chronic kidney disease, or unspecified chronic kidney disease; E11.22 Type 2 diabetes mellitus with diabetic chronic kidney disease; D63.1 Anemia in chronic kidney disease; E86.0 Dehydration; E83.41 Hypermagnesemia; E78.00 Pure hypercholesterolemia, unspecified; E11.51 Type 2 diabetes mellitus with diabetic peripheral angiopathy without gangrene; K21.9 Gastro-esophageal reflux disease without esophagitis; K59.00 Constipation, unspecified; N18.9 Chronic kidney disease, unspecified; R60.0 Localized edema; N17.9 Acute kidney failure, unspecified; I25.10 Atherosclerotic heart disease of native coronary artery without angina pectoris; R42 Dizziness and giddiness; Z20.822 Contact with and (suspected) exposure to COVID-19; Z79.01 Long term (current) use of anticoagulants; Z79.899 Other long term (current) drug therapy; Z79.84 Long term (current) use of oral hypoglycemic drugs; Z95.1 Presence of aortocoronary bypass graft; Z88.5 Allergy status to narcotic agent; Z98.890 Other specified postprocedural states
CPT/HCPCS: 96374; 96361; 96375; 80076; 83735 ×2; 84484 ×2; 80048 ×3; 83880; 83690; 85025; 85378; 85610; 85730; 87880; 87804 ×2; 82948 ×8; 81001; 36415 ×3; 87635; 71045; 70450; 93970; 93880; 93925; 99291; 93005; 96372 ×2; 84443; 82550; 84100; 85027; 78582; 93306; 93356; 94640; G0378 ×47; J7120 ×2; J7030; J2765; J1885; J1650 ×2; A9540; A9558; 94664